=== PATIENT | male | born 2000 | race Hispanic/Latino ===

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

== ENCOUNTER 2019-02-25 11:40 | Emergency (ER) | payer BC, OTHER ==
--- NOTE | 2019-02-25 14:42 | ER ---
[facility] Name: Mike Virk Age: 18 yrs Sex: Male : 2000 Arrival Date: 02/25/2019 Time: 11:43 Bed Treatment Private MD: Diagnosis: Acute pharyngitis Presentation: 02/25 11:47 Presenting complaint: Patient states: cough, congestion since . Transition of la1 care: patient was not received from another setting of care. Onset of symptoms was February 25, 2019. Risk Assessment: Do you want to hurt yourself or someone else? Patient reports no desire to harm self or others. Initial Sepsis Screen: Does the patient meet any 2 criteria? No. Patient's initial sepsis screen is negative. Does the patient have a suspected source of infection? No. Patient's initial sepsis screen is negative. Care prior to arrival: None. 11:47 Method Of Arrival: Ambulatory la1 11:47 Acuity: ALMITA 4 la1 Historical: - Allergies: 11:47 No Known Allergies; la1 - Home Meds: 13:48 diazepam Oral PRN [Active]; Keppra 1,000 mg Oral tab every 12 hours [Active]; Vitamin rv B-6 Oral [Active]; - PMHx: 11:47 "infection around heart, 2017 in [facility]"; Intellectually disabled; Seizures; la1 - PSHx: 13:48 None; rv - Immunization history:: Adult Immunizations up to date. - Social history:: Smoking status: Patient/guardian denies using tobacco. - Ebola Screening: : No symptoms or risks identified at this time. - Family history:: not pertinent. Screenin:47 Abuse screen: Denies threats or abuse. Denies injuries from another. Nutritional rv screening: No deficits noted. Tuberculosis screening: No symptoms or risk factors identified. Fall Risk None identified. Assessment: 13:47 General: Appears in no apparent distress. Behavior is calm, cooperative. Pain: Denies rv pain. Neuro: Level of Consciousness is awake, alert, obeys commands, Oriented to person, place, time, situation. EENT: Throat is clear. Derm: No signs and/or symptoms reported regarding the dermatologic system. Vital Signs: 11:52 BP 126 / 86; Pulse 78; Resp 16; Temp 98.2; Pulse Ox 100% on R/A; la1 14:47 BP 124 / 78; Pulse 71; Resp 16; Pulse Ox 100% ; rv ED Course: 11:43 Patient arrived in ED. as 11:47 Triage completed. la1 11:47 Arm band placed on right wrist. la1 13:31 Bro Lainez MD is Attending Physician. [place] 13:32 Diogo Edwards, RN is Primary Nurse. rv 13:48 Patient has correct armband on for positive identification. Call light in reach. Side rv rails up X 1. 14:46 No provider procedures requiring assistance completed. Patient did not have IV access rv during this emergency room visit. Administered Medications: 14:46 Drug: Zithromax 500 mg Route: PO; rv 14:46 Follow up: Response: No adverse reaction; Medication administered at discharge. rv Outcome: 14:41 Discharge ordered by . [place] 14:47 Discharged to home ambulatory. rv 14:47 Condition: good 14:47 Discharge instructions given to patient, Instructed on discharge instructions, follow up and referral plans. medication usage, Demonstrated understanding of instructions, follow-up care, medications, Prescriptions given X 2. 14:47 Patient left the ED. rv Signatures: Bro Lainez MD MD cha Martinez, Amelia as Attema, Lee, RN RN la1 Diogo Edwards, YANN RN rv
--- NOTE | 2019-02-25 14:42 | EDPHYS ---
Physician Documentation [facility] Name: Mike Virk Age: 18 yrs Sex: Male : 2000 Arrival Date: 02/25/2019 Time: 11:43 Bed Treatment Private MD: ED Physician Bro Lainez HPI: 02/25 14:38 This 18 yrs old Male presents to ER via Ambulatory with complaints of Cold [facility] Symptoms. 14:38 sore throat. Severity of symptoms: At their worst the symptoms were mild in the [facility] emergency department the symptoms are unchanged. The patient has not experienced similar symptoms in the past. Historical: - Allergies: 11:47 No Known Allergies; la1 - Home Meds: 13:48 diazepam Oral PRN [Active]; Keppra 1,000 mg Oral tab every 12 hours [Active]; Vitamin rv B-6 Oral [Active]; - PMHx: 11:47 "infection around heart, 2017 in [facility]"; Intellectually disabled; Seizures; la1 - PSHx: 13:48 None; rv - Immunization history:: Adult Immunizations up to date. - Social history:: Smoking status: Patient/guardian denies using tobacco. - Ebola Screening: : No symptoms or risks identified at this time. - Family history:: not pertinent. ROS: 14:38 Constitutional: Negative for fever, chills, and weight loss, Eyes: Negative for injury, [place] pain, redness, and discharge, Neck: Negative for injury, pain, and swelling, Cardiovascular: Negative for chest pain, palpitations, and edema, Respiratory: Negative for shortness of breath, cough, wheezing, and pleuritic chest pain, Abdomen/GI: Negative for abdominal pain, nausea, vomiting, diarrhea, and constipation, Back: Negative for injury and pain, : Negative for injury, bleeding, discharge, and swelling, MS/Extremity: Negative for injury and deformity, Skin: Negative for injury, rash, and discoloration, Neuro: Negative for headache, weakness, numbness, tingling, and seizure, Psych: Negative for depression, anxiety, suicide ideation, homicidal ideation, and hallucinations, Allergy/Immunology: Negative for hives, rash, and allergies, Endocrine: Negative for neck swelling, polydipsia, polyuria, polyphagia, and marked weight changes, Hematologic/Lymphatic: Negative for swollen nodes, abnormal bleeding, and unusual bruising. 14:38 ENT: Positive for Exam: 14:38 Constitutional: This is a well developed, well nourished patient who is awake, alert, [place] and in no acute distress. Head/Face: Normocephalic, atraumatic. Eyes: Pupils equal round and reactive to light, extra-ocular motions intact. Lids and lashes normal. Conjunctiva and sclera are non-icteric and not injected. Cornea within normal limits. Periorbital areas with no swelling, redness, or edema. Neck: Trachea midline, no thyromegaly or masses palpated, and no cervical lymphadenopathy. Supple, full range of motion without nuchal rigidity, or vertebral point tenderness. No Meningismus. Chest/axilla: Normal chest wall appearance and motion. Nontender with no deformity. No lesions are appreciated. Cardiovascular: Regular rate and rhythm with a normal S1 and S2. No gallops, murmurs, or rubs. Normal PMI, no JVD. No pulse deficits. Respiratory: Lungs have equal breath sounds bilaterally, clear to auscultation and percussion. No rales, rhonchi or wheezes noted. No increased work of breathing, no retractions or nasal flaring. Abdomen/GI: Soft, non-tender, with normal bowel sounds. No distension or tympany. No guarding or rebound. No evidence of tenderness throughout. Back: No spinal tenderness. No costovertebral tenderness. Full range of motion. Skin: Warm, dry with normal turgor. Normal color with no rashes, no lesions, and no evidence of cellulitis. MS/ Extremity: Pulses equal, no cyanosis. Neurovascular intact. Full, normal range of motion. Neuro: Awake and alert, GCS 15, oriented to person, place, time, and situation. Cranial nerves II-XII grossly intact. Motor strength 5/5 in all extremities. Sensory grossly intact. Cerebellar exam normal. Normal gait. Psych: Awake, alert, with orientation to person, place and time. Behavior, mood, and affect are within normal limits. 14:38 ENT: Posterior pharynx: erythema. Vital Signs: 11:52 BP 126 / 86; Pulse 78; Resp 16; Temp 98.2; Pulse Ox 100% on R/A; la1 14:47 BP 124 / 78; Pulse 71; Resp 16; Pulse Ox 100% ; rv MDM: 13:31 Patient medically screened. [facility] 14:40 Data reviewed: vital signs, nurses notes, lab test result(s). [facility] 02/25 11:48 Order name: Strep; Complete Time: 14:32 la 02/25 12:28 Order name: Throat Culture EDMS Administered Medications: 14:46 Drug: Zithromax 500 mg Route: PO; rv 14:46 Follow up: Response: No adverse reaction; Medication administered at discharge. rv Disposition: 02/25/19 14:41 Discharged to Home. Impression: Acute pharyngitis. - Condition is Stable. - Discharge Instructions: Pharyngitis, Pharyngitis, [id number], Sore Throat, Iqrh-[id number]. - Prescriptions for Rita- D 12 Hour 60-120 mg Oral Tablet Sustained Release 12 hr - take 1 tablet by ORAL route every 12 hours As needed; 20 tablet. Zithromax Z- Shon 250 mg Oral Tablet - take 1 tablet by ORAL route as directed for 5 days Day 1 - take two (2) tablets one time. Day 2, 3, 4 , 5 take one (1) tablet once daily.; 6 tablet. - Medication Reconciliation Form, Thank You Letter, Antibiotic Education, Prescription Opioid Use form. - Follow up: Private Physician; When: 2 - 3 days; Reason: Recheck today's complaints, Continuance of care, Re-evaluation by your physician. - Problem is new. - Symptoms have improved. Signatures: Dispatcher [employer] EDWI Bro Lainez MD MD cha Attema, Lee RN RN la1 Diogo Edwards RN RN rv Corrections: (The following items were deleted from the chart) 14:47 14:41 02/25/2019 14:41 Discharged to Home. Impression: Acute pharyngitis. Condition is rv Stable. Forms are Medication Reconciliation Form, Thank You Letter, Antibiotic Education, Prescription Opioid Use. Follow up: Private Physician; When: 2 - 3 days; Reason: Recheck today's complaints, Continuance of care, Re-evaluation by your physician. Problem is new. Symptoms have improved. [place]
[2019-02-25] MEDS ORDERED: AZITHROMYCIN 250 MG TAB ONE (14:45)
[2019-02-25 17:44] VITALS: TEMP 98.2; O2SAT 100
[2019-02-25 18:04] VITALS: BP 124/78
== END 2019-02-25 14:47 | disposition home or self-care (01) ==
LOC: ER 11:40
DX: J02.9 Acute pharyngitis, unspecified (principal); G40.909 Epilepsy, unspecified, not intractable, without status epilepticus
CPT/HCPCS: 87070; 87081; 99283

== ENCOUNTER 2019-09-13 11:49 | Emergency (ER) | payer BC, OTHER ==
--- OUTSIDE RECORDS SUMMARY | 2019-09-13 11:54 | XMS REPORT | Continuity of Care Document ---
:2000 Author Organization [facility] t Address [address] [place] [address] Care Team Providers Name Role Phone Denisa FRIAS, Flako Attending Clinician Problems This patient has no known problems. Allergies, Adverse Reactions, Alerts This patient has no known allergies or adverse reactions. Medications This patient has no known medications. Procedures This patient has no known procedures. Encounters Start End Encounter Admission Attending Care Care Encounter Source Date/Time Date/Time Type Type Clinicians Facility Department ID 2019-08-09 2019-08-09 [facility] KIMANI Crawley [id number] 08:08:51 08:38:51 ne Visit Mj Marquez [id number] Flako Ortiz [id number] Pasha [id number] nal 044 Building Results This patient has no known results.
--- OUTSIDE RECORDS SUMMARY | 2019-09-13 11:54 | XMS REPORT | Summary of Care ---
:2000 Author Organization [facility] Address [address] [place] [id number] Care Team Providers Name Role Phone Flako Crawley MD Primary Care Provider Reason for Referral (Routine) Status Reason Specialty Diagnoses / Referred By Referred To Procedures Contact Contact Pending Review Patient is Diagnoses Seizure Mj Crawley, Established with Procedures CONSULT/REFERRAL NEUROLOGY MD Sang Arriola a Specific [facility] [address] Provider [place] [phone] [place], Phone: [place] [phone] Phone: Reason for Visit Reason Comments Establish Care Seizures Encounter Details Date Type Department Care Team Description 08/09/[address] [facility] Mj Crawley Seizure (Primary Pediatric and Adult MD Flako Dx) Primary Care- [facility] [address] [place] [address] [place] [address] , [address] [place], [place] [phone] (Fax) [phone] Allergies No Known Allergiesdocumented as of this encounter (statuses as of 08/09/2019) Medications Medication Sig Dispensed Refills Start Date End Date Status levETIRAcetam 1,000 mg Take 1,000 mg by 0 07/11/2019 Active tablet mouth 2 (two) times daily. multivit,thx,calcium,iro Take by mouth. 0 Active n,mins (MULTIVITAMIN AND MINERAL ORAL) documented as of this encounter (statuses as of 08/09/2019) Active Problems Problem Noted Date Seizure 08/09/2019 Intellectual disability 08/09/2019 documented as of this encounter (statuses as of 08/09/2019) Social History Tobacco Use Types Packs/Day Years Used Date Never Smoker Smokeless Tobacco: Never Used Alcohol Use Drinks/Week oz/Week Comments Never Alcohol Habits Answer Date Recorded How often do you have a drink containing alcohol? Never 08/09/2019 How many drinks containing alcohol do you have on a typical Not asked day when you are drinking? How often do you have six or more drinks on one occasion? No t asked Sex Assigned at Date Recorded Not on file Job Start Date Occupation Industry Not on file Not on file Not on file Travel History Travel Start Travel End No recent travel history available. documented as of this encounter Last Filed Vital Signs Not on filedocumented in this encounter Progress Notes Mj Crawley MD - 08/09/2019 4:15 PM CDT TELEHEALTH NOTE Verbal consent obtained from Patient: Mike Virk and Care Provider: his mother for telehealth services provided below. Communication with patient was conducted via Telephone due to patient unable to obtain video call option. Location of Patient: Home Location of Provider: Office Date of Service: 08/09/2019 Chief Complaint: establish care and referrals HPI: Patient is currently controlled on his Keppra; He will need a referral to follow up with Dr Dumont. His seizures started 2016. Patient also suffers from an intellectual disability. Lives with his mother and siblings however he is relatively independent and makes good decisions for himself. Seizures Seizure activity on arrival: no Seizure type: Grand mal Initial focality: None Postictal symptoms: confusion and somnolence Return to baseline: yes Severity: Severe Timing: Intermittent Past Medical History: Diagnosis Date Intellectual disability Seizures 2016 No Known Allergies Family History Problem Relation Age of Onset Cancer Maternal Grandmother Diabetes Maternal Grandfather MEDICATIONS: Current Outpatient Medications Medication Sig Dispense Refill multivit,thx,calcium,iron,mins (MULTIVITAMIN AND MINERAL ORAL) Take by mouth. levETIRAcetam 1,000 mg tablet Take 1,000 mg by mouth 2 (two) times daily. No current facility-administered medications for this visit. ROS Review of Systems Neurological: Positive for seizures. 5th toe has a dystrophic nail which is overgrowing TELEHEALTH EXAM Patient is alert and communicative on the phone with no distress noted. ASSESSMENT/ PLAN 1. Seizure CONSULT/REFERRAL NEUROLOGY once the Covid risks abates will need a referral to podiatry Follow up 3 months to meet F2F After visit summary (AVS ) documentation will be available through [employer] for this encounter. A total of 25 minutes was spent on the Telephone due to patient unable to obtain video call option with the patient. Mj Crawley MD documented in this encounter Plan of Treatment Health Maintenance Due Date Last Done Comments VARICELLA VACCINES (1 of 2 - 2-dose 07/07/2000 childhood series) MENINGOCOCCAL B VACCINES (1 of 2 - 07/07/2009 Risk Bexsero 2-dose series) DTaP,Tdap,and Td Vaccines (1 - 07/07/2010 Tdap) HPV VACCINES (1 - Male 2-dose 07/07/2010 series) WELL CARE VISIT: 12-21 YEARS 2011 (yearly) INFLUENZA VACCINE (Season Ended) 2019 MENINGOCOCCAL VACCINE Aged Out No longer eligible based on patient's age to complete this topic PNEUMOCOCCAL 0-64 YEARS COMBINED Aged Out No longer eligible based on SERIES patient's age to complete this topic documented as of this encounter Results Not on filedocumented in this encounter Visit Diagnoses Diagnosis Seizure - Primary Other convulsions documented in this encounter Insurance Payer Benefit Plan / Subscriber ID Effective Phone Address T ype Group Dates [employer] 2019-Pres [address] [place] [id number] [place] [address] documented as of this encounter
--- NOTE | 2019-09-13 12:54 | RAD REPORT ---
EXAM DESCRIPTION: RAD - Knee Left 3 View - 09/13/2019 12:43 pm CLINICAL HISTORY: PAIN, slip and fall COMPARISON: No comparisons FINDINGS: No fracture, dislocation or periosteal reaction.No joint effusion seen. No joint space milka rowing. No soft tissue abnormality. IMPRESSION: Negative left knee. Clinical concerns for internal derangement or occult bony injury could be further assessed with MR im aging.
[2019-09-13] MEDS ORDERED: TETANUS & DIPHTHERIA TOX,ADULT 0.5 ML VIAL ONE (13:24)
--- NOTE | 2019-09-13 13:24 | EDPHYS ---
Physician Documentation [facility] Name: Mike Virk Age: 19 yrs Sex: Male : 2000 Arrival Date: 09/13/2019 Time: 11:52 Bed 23 Private MD: ED Physician Meryl Mejias HPI: 09/12 13:34 This 19 yrs old Male presents to ER via Ambulatory with complaints of Fall kb Injury, Laceration To Knee. 13:34 Details of fall: The patient fell from an upright position, while standing. Onset: The kb symptoms/episode began/occurred just prior to arrival. Associated injuries: The patient sustained left knee, abrasion. Severity of symptoms: At their worst the symptoms were moderate, in the emergency department the symptoms are unchanged. The patient has not experienced similar symptoms in the past. The patient has not recently seen a physician. Mother reports pt was in the shower, lost his balance and fell onto left knee. Brought him in to make sure there was no injury. Abrasions noted to left knee and thigh. Historical: - Allergies: 12:12 No Known Allergies; ca1 - Home Meds: 12:12 Keppra 1,000 mg Oral tab every 12 hours [Active]; Vitamin B-6 Oral [Active]; diazepam ca1 Oral PRN [Active]; - PMHx: 12:12 "infection around heart, 2017 in [facility]"; Intellectually disabled; Seizures; ca1 - PSHx: 12:12 None; ca1 - Immunization history:: Adult Immunizations up to date, Last tetanus immunization: unknown. - Social history:: Smoking status: Patient denies any tobacco usage or history of. ROS: 13:33 Constitutional: Negative for fever, chills, and weight loss, Cardiovascular: Negative kb for chest pain, palpitations, and edema, Respiratory: Negative for shortness of breath, cough, wheezing, and pleuritic chest pain, Abdomen/GI: Negative for abdominal pain, nausea, vomiting, diarrhea, and constipation, Back: Negative for injury and pain, MS/Extremity: Negative for injury and deformity, Neuro: Negative for headache, weakness, numbness, tingling, and seizure. 13:33 Skin: Positive for abrasion(s), of the left knee. Exam: 13:34 Constitutional: This is a well developed, well nourished patient who is awake, alert, kb and in no acute distress. Head/Face: Normocephalic, atraumatic. Chest/axilla: Normal chest wall appearance and motion. Nontender with no deformity. No lesions are appreciated. Cardiovascular: Regular rate and rhythm with a normal S1 and S2. No gallops, murmurs, or rubs. Normal PMI, no JVD. No pulse deficits. Respiratory: Lungs have equal breath sounds bilaterally, clear to auscultation and percussion. No rales, rhonchi or wheezes noted. No increased work of breathing, no retractions or nasal flaring. Abdomen/GI: Soft, non-tender, with normal bowel sounds. No distension or tympany. No guarding or rebound. No evidence of tenderness throughout. Skin: Warm, dry with normal turgor. Normal color with no rashes, no lesions, and no evidence of cellulitis. Neuro: Awake and alert, GCS 15, oriented to person, place, time, and situation. Cranial nerves II-XII grossly intact. Motor strength 5/5 in all extremities. Sensory grossly intact. Cerebellar exam normal. Normal gait. 13:34 Musculoskeletal/extremity: Extremities: grossly normal except: noted in the left knee: abrasion, ROM: intact in all extremities, Circulation is intact in all extremities. Sensation intact. Vital Signs: 12:09 BP 120 / 74; Pulse 92; Resp 16 A; Temp 97.4; Pulse Ox 100% on R/A; Weight 131.54 kg ca1 (R); Height 5 ft. 11 in. (180.34 cm) (R); Pain 5/10; 12:09 Body Mass Index 40.45 (131.54 kg, 180.34 cm) ca1 MDM: 13:04 Patient medically screened. kb 13:22 Data reviewed: vital signs, nurses notes. Data interpreted: Pulse oximetry: on room air kb is 100 %. Interpretation: normal. Counseling: I had a detailed discussion with the patient and/or guardian regarding: the historical points, exam findings, and any diagnostic results supporting the discharge/admit diagnosis, radiology results, the need for outpatient follow up, a family practitioner, to return to the emergency department if symptoms worsen or persist or if there are any questions or concerns that arise at home. 09/12 12:12 Order name: XRAY Knee LEFT 3 view; Complete Time: 12:58 ca1 09/12 13:22 Order name: Wound Care; Complete Time: 13:26 kb 09/12 13:22 Order name: Wound dressing; Complete Time: 13:26 kb Administered Medications: 13:25 Drug: Tetanus-Diphtheria Toxoid Adult 0.5 ml {Teacher Associate: [employer]. Exp: 05/17/2021. Lot #: [id number]. } Route: IM; Site: right deltoid; Disposition: 18:48 Co-signature as Attending Physician, Meryl Mejias MD. ma2 Disposition: 09/13/19 13:23 Discharged to Home. Impression: Fall on same level from slipping, tripping and stumbling, Abrasion of knee. - Condition is Stable. - Discharge Instructions: Abrasion, [id number], Fall Prevention in the Home, [id number]. - Medication Reconciliation Form, Thank You Letter, Antibiotic Education, Prescription Opioid Use form. - Follow up: Emergency Department; When: As needed; Reason: Worsening of condition. Follow up: Private Physician; When: 2 - 3 days; Reason: Recheck today's complaints, Continuance of care, Re-evaluation by your physician. Signatures: Dispatcher [employer] Renita Serrano, MEDICAL INSURANCE CODER-C MEDICAL INSURANCE CODER-Daniela Castorena, YANN RN Meryl Jaquez MD MD ma2 Britany Bryson RN RN ca1 Corrections: (The following items were deleted from the chart) 13:35 13:23 09/13/2019 13:23 Discharged to Home. Impression: Fall on same level from slipping, tripping and stumbling; Abrasion of knee. Condition is Stable. Forms are Medication Reconciliation Form, Thank You Letter, Antibiotic Education, Prescription Opioid Use. Follow up: Emergency Department; When: As needed; Reason: Worsening of condition. Follow up: Private Physician; When: 2 - 3 days; Reason: Recheck today's complaints, Continuance of care, Re-evaluation by your physician. kb
--- NOTE | 2019-09-13 13:24 | ER ---
Nurse's Notes [facility] Name: Mike Virk Age: 19 yrs Sex: Male : 2000 Arrival Date: 09/13/2019 Time: 11:52 Bed 23 Private MD: Diagnosis: Fall on same level from slipping, tripping and stumbling;Abrasion of knee Presentation: 09/12 12:09 Chief complaint: Parent and/or Guardian states: Slipped, fell, and landed on L knee on ca1 the bathtub. Abrasions noted on L knee. Coronavirus screen: Proceed with normal triage. Patient denies a cough. Patient denies shortness of breath or difficulty breathing. Patient denies measured and/or subjective temperature greater than 100.4F prior to today's visit. Patient denies travel on a cruise ship or to a country the [facility] currently lists as an affected area. Patient denies contact with known and/or suspected case of COVID-19. Ebola Screen: Patient negative for fever greater than or equal to 101.5 degrees Fahrenheit, and additional compatible Ebola Virus Disease symptoms Patient denies exposure to infectious person. Patient denies travel to an Ebola-affected area in the 21 days before illness onset. No symptoms or risks identified at this time. Initial Sepsis Screen: Does the patient meet any 2 criteria? No. Patient's initial sepsis screen is negative. Does the patient have a suspected source of infection? No. Patient's initial sepsis screen is negative. Risk Assessment: Do you want to hurt yourself or someone else? Patient reports no desire to harm self or others. Onset of symptoms was September 13, 2019. 12:09 Method Of Arrival: Ambulatory ca1 12:09 Acuity: ALMITA 4 ca1 Historical: - Allergies: 12:12 No Known Allergies; ca1 - Home Meds: 12:12 Keppra 1,000 mg Oral tab every 12 hours [Active]; Vitamin B-6 Oral [Active]; diazepam ca1 Oral PRN [Active]; - PMHx: 12:12 "infection around heart, 2017 in [facility]"; Intellectually disabled; Seizures; ca1 - PSHx: 12:12 None; ca1 - Immunization history:: Adult Immunizations up to date, Last tetanus immunization: unknown. - Social history:: Smoking status: Patient denies any tobacco usage or history of. Screenin:10 Abuse screen: Denies threats or abuse. Denies injuries from another. Nutritional iw screening: No deficits noted. Tuberculosis screening: No symptoms or risk factors identified. Fall Risk None identified. Assessment: 13:09 General: Appears in no apparent distress. Behavior is calm, cooperative. Pain: iw Complains of pain in left knee. Neuro: Level of Consciousness is awake, alert, obeys commands, Moves all extremities. Full function. Cardiovascular: Patient's skin is warm and dry. Respiratory: Respiratory effort is even, unlabored, Respiratory pattern is regular. Derm: Wound noted Other: abrasion noted to left knee. Musculoskeletal: Range of motion: intact in all extremities. Vital Signs: 12:09 BP 120 / 74; Pulse 92; Resp 16 A; Temp 97.4; Pulse Ox 100% on R/A; Weight 131.54 kg ca1 (R); Height 5 ft. 11 in. (180.34 cm) (R); Pain 5/10; 12:09 Body Mass Index 40.45 (131.54 kg, 180.34 cm) ca1 ED Course: 11:52 Patient arrived in ED. ag5 12:11 Triage completed. ca1 12:12 Arm band placed on right wrist. ca1 12:42 Renita Chambers [facility]-C [facility]. kb 12:42 Meryl Mejias MD is Attending Physician. kb 12:44 XRAY Knee LEFT 3 view In Process Unspecified. EDMS 13:08 Daniela Osborne, RN is Primary Nurse. iw 13:10 No provider procedures requiring assistance completed. Patient did not have IV access iw during this emergency room visit. 13:35 Patient has correct armband on for positive identification. iw Administered Medications: 13:25 Drug: Tetanus-Diphtheria Toxoid Adult 0.5 ml {French Comber: [employer]. Exp: iw 05/17/2021. Lot #: [id number]. } Route: IM; Site: right deltoid; Outcome: 13:23 Discharge ordered by . kb 13:34 Discharged to home ambulatory, with family. iw 13:34 Condition: good 13:34 Discharge instructions given to patient, family, Instructed on discharge instructions, follow up and referral plans. wound care, Demonstrated understanding of instructions, follow-up care, wound care. 13:35 Patient left the ED. iw Signatures: Dispatcher [employer] EDRenita Martinez, REDRAWER-C REDRAWER-CkDaniela Arango RN RN iw Britany Bryson RN RN ca1 Julia [place] ag5 Corrections: (The following items were deleted from the chart) 12:12 12:09 Pulse 92bpm; Resp 16bpm; Assisted; Pulse Ox 100% RA; Temp 97.4F; 131.54 kg ca1 Reported; Height 5 ft. 11 in. Reported; BMI: 40.4; Pain 5/10; ca1
[2019-09-13 13:43] VITALS: BP 120/74; TEMP 97.4; O2SAT 100
== END 2019-09-13 13:35 | disposition home or self-care (01) ==
LOC: ER 11:49
DX: S80.212A Abrasion, left knee, initial encounter (principal); W18.2XXA Fall in (into) shower or empty bathtub, initial encounter; Y93.9 Activity, unspecified
CPT/HCPCS: 90471; 90714; 99283

== ENCOUNTER 2020-08-06 21:09 | Emergency (ER) | payer BC, OTHER ==
--- OUTSIDE RECORDS SUMMARY | 2020-08-06 21:12 | XMS REPORT | Continuity of Care Document ---
:2000 Author Organization [facility] t Address [address] [place] [address] Care Team Providers Name Role Phone Denisa FRIAS, Flako Attending Clinician Problems This patient has no known problems. Allergies, Adverse Reactions, Alerts This patient has no known allergies or adverse reactions. Medications This patient has no known medications. Procedures This patient has no known procedures. Encounters Start End Encounter Admission Attending Care Care Encounter Source Date/Time Date/Time Type Type Clinicians Facility Department ID 2019-11-04 2019-11-[address] [facility] [id number] 00:00:00 00:00:00 [facility] [id number] [place] [id number] Professio [phone] nal [address] 2019-08-09 2019-08-[address] [facility] [id number] 08:08:51 08:38:51 ne Visit Mj Hood [id number] Flako [place] [id number] Professio [phone] nal 044 Building Results This patient has no known results.
[2020-08-06 22:36] LABS: Absolute Lymphocytes (CBC) 3.2 K/uL (0.7-4.9); Basophils % 0.4 % (0-1.3); Hematocrit 43.8 % (39.6-49.0); Lymphocytes % 24.3 % (15.3-44.8); MPV 9.9 fL (7.6-11.3); RBC Red Blood Cell Count 5.51 M/uL (4.33-5.43)
[2020-08-06 22:37] LABS: Protime INR 1.11
[2020-08-06 22:51] LABS: ALT/SGPT 47 U/L (12-78); AST/SGOT 31 U/L (15-37); Albumin 4.3 g/dL (3.4-5.0); Alkaline Phosphatase 85 U/L (45-117); BUN Blood Urea Nitrogen 15 mg/dL (7-18); Bicarbonate 30 mmol/L (21-32); Bilirubin Direct < 0.1 mg/dL (0-0.2); Bilirubin Total 0.3 mg/dL (0.2-1.0); Glucose Level 94 mg/dL (74-106); Magnesium 2.2 mg/dL (1.8-2.4); Potassium 3.8 mmol/L (3.5-5.1); Protein, Total 8.2 g/dL (6.4-8.2); Sodium Level 139 mmol/L (136-145); Troponin (Emerg Dept Use Only) < 0.02 ng/mL (0.0-0.045)
[2020-08-06 22:53] LABS: NT PRO-BNP < 5 pg/mL (<125)
[2020-08-06 23:22] LABS: Urine Blood Negative (Negative); Urine Glucose Negative (Negative); Urine Protein Negative (Negative); Urine Specific Gravity >=1.030 (1.005-1.030); Urine pH 6.5 (5.0-7.0)
[2020-08-06] MEDS ORDERED: FAMOTIDINE 20 MG/2 ML VIAL IV ONE (23:28)
[2020-08-06] MEDS ORDERED: KETOROLAC 30 MG/ML INJ ONE (23:28)
[2020-08-06 23:47] LABS: Barbiturates NEGATIVE (NEGATIVE); Benzodiazepines NEGATIVE (NEGATIVE); Cocaine NEGATIVE (NEGATIVE); METHAMPHETAM NEGATIVE (NEGATIVE); Methadone NEGATIVE (NEGATIVE); Opiates NEGATIVE (NEGATIVE); Phencyclidine NEGATIVE (NEGATIVE); THC Cannibis NEGATIVE (NEGATIVE)
--- NOTE | 2020-08-07 00:36 | EDPHYS ---
Physician Documentation [facility] Name: Mike Virk Age: 20 yrs Sex: Male : 2000 Arrival Date: 08/06/2020 Time: 21:12 Bed 14 Private MD: ED Physician Fazal Weller HPI: 08/06 22:30 This 20 yrs old Male presents to ER via Ambulatory with complaints of Chest cp Pain, Nausea. 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 Flu vaccine is not up to date. - Social history:: Smoking status: Patient denies any tobacco usage or history of. ROS: 22:35 Constitutional: Negative for body aches, chills, fever, poor PO intake. cp 22:35 Eyes: Negative for injury, pain, redness, and discharge. cp 22:35 ENT: Negative for ear pain, sore throat, difficulty swallowing, difficulty handling secretions. 22:35 Cardiovascular: Positive for chest pain, Negative for edema, palpitations. 22:35 Respiratory: Positive for cough, Negative for shortness of breath, wheezing. 22:35 Abdomen/GI: Positive for nausea and vomiting, Negative for abdominal pain, diarrhea, constipation, anorexia, black/tarry stool, rectal bleeding. 22:35 Back: Negative for radiated pain. 22:35 : Negative for urinary symptoms, testicular pain 22:35 Neuro: Negative for altered mental status, headache, weakness. 22:35 All other systems are negative. Exam: 21:30 ECG was reviewed by the Attending Physician. cp 22:40 Constitutional: The patient appears in no acute distress, alert, awake, cp non-diaphoretic, non-toxic, well developed, well nourished. 22:40 Head/Face: Normocephalic, atraumatic. cp 22:40 Eyes: Periorbital structures: appear normal, Conjunctiva: normal, no exudate, no injection, Sclera: no appreciated abnormality, Lids and lashes: appear normal, bilaterally. 22:40 ENT: External ear(s): are unremarkable, Nose: is normal, Mouth: Lips: moist, Oral mucosa: pink and intact, moist, Posterior pharynx: Airway: no evidence of obstruction, patent. 22:40 Neck: ROM/movement: is normal, is supple, without pain, no range of motions limitations. 22:40 Chest/axilla: Inspection: normal, Palpation: crepitus, is not appreciated, tenderness, that is mild, of the anterior aspect of left upper chest and mid-sternal area. 22:40 Cardiovascular: Rate: normal, Rhythm: regular, Heart sounds: murmur, not appreciated, Edema: is not appreciated, JVD: is not appreciated. 22:40 Respiratory: the patient does not display signs of respiratory distress, Respirations: normal, no use of accessory muscles, no retractions, labored breathing, is not present, Breath sounds: are clear throughout, no decreased breath sounds, no stridor, no wheezing. 22:40 Abdomen/GI: Inspection: abdomen appears normal, Bowel sounds: active, all quadrants, Palpation: soft, in all quadrants, mild abdominal tenderness, in the epigastric area, rebound tenderness, is not appreciated, voluntary guarding, is not appreciated, involuntary guarding, is not appreciated. 22:40 Back: pain, is absent, ROM is normal. Vital Signs: 21:23 BP 129 / 77; Pulse 92; Resp 16 S; Temp 98.3(O); Pulse Ox 100% on R/A; Weight 131.54 kg ca1 (R); Height 5 ft. 11 in. (180.34 cm) (R); 23:00 BP 119 / 70; Pulse 80; Resp 16; Pulse Ox 98% ; rr5 08/07 00:01 BP 115 / 70; Pulse 85; Resp 19; Pulse Ox 98% ; rr5 01:00 BP 113 / 66; Pulse 80; Resp 19; Pulse Ox 98% ; rr5 08/06 21:23 Body Mass Index 40.45 (131.54 kg, 180.34 cm) ca1 MDM: 08/06 22:01 Patient medically screened. cp 08/07 00:34 Data reviewed: vital signs, nurses notes, lab test result(s), EKG, radiologic studies, cp CT scan, plain films, and as a result, I will discharge patient. 00:34 Test interpretation: by ED physician or midlevel provider: ECG, chest xray negative for cp infiltrates. Counseling: I had a detailed discussion with the patient and/or guardian regarding: the historical points, exam findings, and any diagnostic results supporting the discharge/admit diagnosis, lab results, radiology results, to return to the emergency department if symptoms worsen or persist or if there are any questions or concerns that arise at home. 08/06 22:00 Order name: Basic Metabolic Panel rr5 08/06 22:00 Order name: CBC with Diff rr5 08/06 22:00 Order name: LFT's rr 08/06 22:00 Order name: Magnesium; Complete Time: 23:03 rr5 08/06 22:00 Order name: NT PRO-BNP; Complete Time: 23:03 rr5 08/06 22:00 Order name: PT-INR; Complete Time: 23:03 [facility] 08/06 23:04 Interpretation: Abnormal: PT 12.8. cp 08/06 22:00 Order name: Troponin (emerg Dept Use Only); Complete Time: 23:03 rr5 08/06 22:01 Order name: Basic Metabolic Panel; Complete Time: 23:03 EDFL 08/06 23:04 Interpretation: Normal except: GFR 85. cp 08/06 22:01 Order name: CBC with Automated Diff; Complete Time: 23:03 EDFL 08/06 23:04 Interpretation: Normal except: WBC 13.20; RBC 5.51; MCV 79.6; MCH 26.8; NEUT A 8.8. cp 08/06 22:01 Order name: Liver (Hepatic) Function; Complete Time: 23:03 EDFL 08/06 22:18 Order name: UDS; Complete Time: 00:13 cp 08/06 22:27 Order name: Lipase; Complete Time: 23:03 cp 08/06 23:22 Order name: Urine Dipstick-Ancillary; Complete Time: 00:13 EDFL 08/06 21:27 Order name: EKG; Complete Time: 21:28 ca1 08/06 21:27 Order name: EKG - Nurse/Tech; Complete Time: 21:27 ca1 08/06 22:00 Order name: XRAY Chest (1 view) rr5 08/06 22:00 Order name: Cardiac monitoring; Complete Time: 22:30 rr5 08/06 22:00 Order name: IV Saline Lock; Complete Time: 22:30 rr5 08/06 22:00 Order name: Labs collected and sent; Complete Time: 22:30 rr5 08/06 22:00 Order name: O2 Per Protocol; Complete Time: 22:30 rr5 08/06 22:00 Order name: O2 Sat Monitoring; Complete Time: 22:30 rr5 08/06 22:27 Order name: US Abdomen Limited cp 08/06 22:27 Order name: NPO; Complete Time: 22:30 cp 08/06 23:07 Order name: CT Abd/Pelvis - IV Contrast Only cp 08/06 23:48 Order name: SARS-COV-2 RT PCR; Complete Time: 00:13 EDMS 08/07 00:16 Order name: PO challenge; Complete Time: 00:33 cp EC/06 21:30 Rate is 89 beats/min. Rhythm is regular. WI interval is normal. QRS interval is normal. cp QT interval is normal. T waves are Inverted in lead aVR. Interpreted by me. Reviewed by me. Administered Medications: 23:10 Drug: Pepcid (famotidine) 20 mg Route: IVP; Site: right forearm; rr5 08/07 00:00 Follow up: Response: No adverse reaction rr5 08/06 23:26 Drug: TORadol - (ketorolac) 15 mg Route: IVP; Site: right forearm; rr5 08/07 00:20 Follow up: Response: No adverse reaction rr5 Disposition: 06:35 Co-signature as Attending Physician, Fazal Weller MD. [email or web address] Disposition: 08/07/20 00:35 Discharged to Home. Impression: Chest pain, unspecified, Nausea and vomiting. - Condition is Stable. - Discharge Instructions: Nonspecific Chest Pain, Nausea and Vomiting, Adult. - Prescriptions for Zofran 4 mg Oral Tablet - take 1 tablet by ORAL route every 12 hours As needed; 20 tablet. Diclofenac Sodium 75 mg Oral Tablet, Delayed Release (E.C.) - take 1 tablet by ORAL route 2 times per day; 20 tablet. - Medication Reconciliation Form, Thank You Letter, Antibiotic Education, Prescription Opioid Use form. - Follow up: Private Physician; When: 2 - 3 days; Reason: Recheck today's complaints. - Problem is new. - Symptoms have improved. Signatures: Dispatcher [employer] EDFL Bro Hackett PA PA cp Roque, Raymond RN RN rr5 Britany Bryson RN RN ca1 Fazal Weller MD MD 7 Corrections: (The following items were deleted from the chart) 08/06 23:00 22:28 CORONAVIRUS+MR.LAB.BRZ ordered. [facility] 08/07 01:02 00:35 08/07/2020 00:35 Discharged to Home. Impression: Chest pain, unspecified; Nausea rr5 and vomiting. Condition is Stable. Forms are Medication Reconciliation Form, Thank You Letter, Antibiotic Education, Prescription Opioid Use. Follow up: Private Physician; When: 2 - 3 days; Reason: Recheck today's complaints. Problem is new. Symptoms have improved. cp
--- NOTE | 2020-08-07 00:36 | ER ---
Nurse's Notes [facility] Name: Mkie Virk Age: 20 yrs Sex: Male : 2000 Arrival Date: 08/06/2020 Time: 21:12 Bed 14 Private MD: Diagnosis: Chest pain, unspecified;Nausea and vomiting Presentation: 08/06 21:23 Chief complaint: Patient states: vomited yesterday. Chest pain, nausea and dizziness ca1 this evening. Coronavirus screen: Client denies travel out of the [place] in the last 14 days. nausea, vomiting. Client presents with at least one sign or symptom that may indicate coronavirus-19. Standard/surgical mask placed on the client. Provider contacted for isolation considerations. Ebola Screen: Patient negative for fever greater than or equal to 101.5 degrees Fahrenheit, and additional compatible Ebola Virus Disease symptoms Patient denies exposure to infectious person. Patient denies travel to an Ebola-affected area in the 21 days before illness onset. No symptoms or risks identified at this time. Initial Sepsis Screen: Does the patient meet any 2 criteria? No. Patient's initial sepsis screen is negative. Does the patient have a suspected source of infection? No. Patient's initial sepsis screen is negative. Risk Assessment: Do you want to hurt yourself or someone else? Patient reports no desire to harm self or others. Onset of symptoms was August 06, 2020. 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 Flu vaccine is not up to date. - Social history:: Smoking status: Patient denies any tobacco usage or history of. Screenin:00 Abuse screen: Denies threats or abuse. Denies injuries from another. Nutritional rr5 screening: No deficits noted. Tuberculosis screening: No symptoms or risk factors identified. Fall Risk IV access (20 points). Total Yang Fall Scale indicates No Risk (0-24 pts). Assessment: 22:00 General: Appears in no apparent distress. comfortable, Behavior is calm, cooperative. rr5 22:00 Pain: Complains of pain in chest Pain radiates to abdomen Quality of pain is described rr5 as aching, Pain began gradually. Neuro: Level of Consciousness is awake, alert, obeys commands, Oriented to person, place, time. Cardiovascular: Reports chest pain, Capillary refill < 3 seconds Patient's skin is warm and dry. Respiratory: Airway is patent Respiratory effort is even, unlabored, Respiratory pattern is regular, symmetrical. GI: Abdomen is round Reports lower abdominal pain, upper abdominal pain, nausea, vomiting. : No signs and/or symptoms were reported regarding the genitourinary system. EENT: No signs and/or symptoms were reported regarding the EENT system. Derm: Skin is intact, is healthy with good turgor, Skin temperature is warm. Musculoskeletal: Capillary refill < 3 seconds. 23:00 Reassessment: Patient appears in no apparent distress at this time. Patient and/or rr5 family updated on plan of care and expected duration. Pain level reassessed. Patient is alert, oriented x 3, equal unlabored respirations, skin warm/dry/pink. awaiting for result. 08/07 00:00 Reassessment: Patient appears in no apparent distress at this time. Patient is alert, rr5 oriented x 3, equal unlabored respirations, skin warm/dry/pink. no complaints made. 01:00 Reassessment: Patient appears in no apparent distress at this time. no nausea or rr5 vomiting reported, discharge instruction given and explained without complaints made. Vital Signs: 08/06 21:23 BP 129 / 77; Pulse 92; Resp 16 S; Temp 98.3(O); Pulse Ox 100% on R/A; Weight 131.54 kg ca1 (R); Height 5 ft. 11 in. (180.34 cm) (R); 23:00 BP 119 / 70; Pulse 80; Resp 16; Pulse Ox 98% ; rr5 08/07 00:01 BP 115 / 70; Pulse 85; Resp 19; Pulse Ox 98% ; rr5 01:00 BP 113 / 66; Pulse 80; Resp 19; Pulse Ox 98% ; rr5 08/06 21:23 Body Mass Index 40.45 (131.54 kg, 180.34 cm) ca1 ED Course: 08/06 21:12 Patient arrived in ED. am4 21:24 Triage completed. ca1 21:26 Arm band placed on right wrist. ca1 21:58 Moises Jones, RN is Primary Nurse. rr5 21:59 Bro Hackett PA is PHCP. cp 21:59 Fazal Weller MD is Attending Physician. cp 22:00 Patient has correct armband on for positive identification. Bed in low position. Call rr5 light in reach. Pulse ox on. NIBP on. 22:10 Inserted saline lock: 20 gauge in right forearm, using aseptic technique. Blood rr5 collected. 22:30 XRAY Chest (1 view) Sent. rr5 22:32 XRAY Chest (1 view) In Process Unspecified. EDMS 22:57 US Abdomen Limited In Process Unspecified. EDMS 23:39 CT Abd/Pelvis - IV Contrast Only In Process Unspecified. EDMS 08/07 01:01 No provider procedures requiring assistance completed. IV discontinued, intact, rr5 bleeding controlled, No redness/swelling at site. Pressure dressing applied. Patient maintains SpO2 saturation greater than 95% on room air. Administered Medications: 08/06 23:10 Drug: Pepcid (famotidine) 20 mg Route: IVP; Site: right forearm; rr5 08/07 00:00 Follow up: Response: No adverse reaction rr5 08/06 23:26 Drug: TORadol - (ketorolac) 15 mg Route: IVP; Site: right forearm; rr5 08/07 00:20 Follow up: Response: No adverse reaction rr5 Outcome: 00:35 Discharge ordered by . cp 01:01 Discharged to home ambulatory. rr5 01:01 Condition: stable 01:01 Discharge instructions given to patient, family, Instructed on discharge instructions, follow up and referral plans. medication usage, Demonstrated understanding of instructions, follow-up care, medications, Prescriptions given X 2. 01:02 Patient left the ED. rr5 Signatures: Dispatcher [employer] EDMS Bro Hackett PA PA cp Roque, Raymond, RN RN rr5 Britany Bryson RN RN ca1 Marion Virk am
[2020-08-07 01:22] VITALS: O2SAT 98
[2020-08-07 01:23] VITALS: TEMP 98.3
[2020-08-07 01:27] VITALS: BP 113/66
--- NOTE | 2020-08-07 07:49 | EKG ---
Test Date: 2020-08-06 Test Time: 21:23:05 Finisher Polisher: DANIELLE MEASUREMENT RESULTS: Intervals: Rate: 89 CT: 172 QRSD: 76 QT: 334 QTc: 406 Donna: P: 33 CT: 172 QRS: 56 T: 36 INTERPRETIVE STATEMENTS: Normal sinus rhythm Normal ECG Compared to ECG 08/14/2017 16:35:56 Sinus tachycardia no longer present ST (T wave) deviation no longer present Electronically Signed On 08-07-20 07:48:15 CDT by Preet Singh
--- NOTE | 2020-08-07 08:07 | RAD REPORT ---
EXAM DESCRIPTION: US - Abdomen Exam Limited - 08/06/2020 10:57 pm CLINICAL HISTORY: Abdominal pain. Vomiting COMPARISON: None. FINDINGS: The gallbladder is contracted. Borderline gallbladder wall thickening. A gallstone is not seen. The biliary tree is normal caliber. IMPRESSION: Borderline gallbladder wall thickening may be secondary to the gallbladder being contrac wanda or acalculous cholecystitis. A gallstone is not seen.
--- NOTE | 2020-08-07 08:10 | RAD REPORT ---
EXAM DESCRIPTION: [place] Single View08/06/2020 10:32 pm CLINICAL HISTORY: Chest pain COMPARISON: 2017 FINDINGS: The lungs appear clear of acute infiltrate. The heart is normal size IMPRESSION: No acute abnormalities displayed
--- NOTE | 2020-08-08 09:06 | RAD REPORT ---
EXAM DESCRIPTION: CT - Abdomen Pelvis W Contrast - 08/07/2020 6:19 am CLINICAL HISTORY: NAUSEA / VOMITING. COMPARISON: None. TECHNIQUE: CT of the abdomen and pelvis was performed following intravenous administration of iodina wanda contrast. Arterial phase images through the abdomen, and portal venous phase images through the a bdomen and pelvis were obtained. Oral contrast was not administered. Axial, coronal, and sagittal sof t tissue window reconstructions were created and sent to PACS. This exam was performed according to our departmental dose-optimization program, which includes autom ated exposure control, adjustment of the mA and/or kV according to patient size and/or use of iterati ve reconstruction technique. FINDINGS: Thoracic: No significant abnormality. Hepatobiliary: Focal geographic regions of fatty deposition adjacent to the falciform ligament. No co ncerning hepatic lesion identified. The hepatic and portal veins are patent. The gallbladder is unrem arkable. No biliary ductal dilatation. Pancreas: Unremarkable. Spleen: Unremarkable. Gastrointestinal: No evidence of bowel obstruction or perienteric inflammation. The appendix is jaki l. Small amount of fecal material in the colon. Adrenals: No abnormality identified in either adrenal gland. Renal: No concerning parenchymal abnormality in either kidney. No hydronephrosis or urolithiasis. Bladder/Reproductive: Unremarkable appearance of the urinary bladder by CT technique. Vascular/Lymphatics: No lymphadenopathy identified by CT size criteria. Abdominal aorta is normal in caliber. The major visceral vessels are patent. Musculoskeletal: No concerning osseous lesion identified. Fluid / peritoneum: No significant free fluid. No free intraperitoneal air identified. IMPRESSION No acute abnormality identified in the abdomen or pelvis by CT. Electronically signed by: Nina Thompson MD 08/06/2020 11:51 PM CDT Due to temporary technical issues with the PACS/Fluency reporting system, reports are being signed by the in house radiologists without review as a courtesy to insure prompt reporting. The interpreting radiologist is fully responsible for the content of the report.
== END 2020-08-07 01:02 | disposition home or self-care (01) ==
LOC: ER 21:09
DX: R11.2 Nausea with vomiting, unspecified (principal); Z20.822 Contact with and (suspected) exposure to COVID-19; G40.909 Epilepsy, unspecified, not intractable, without status epilepticus
CPT/HCPCS: 93005; 85025; 80048; 36415; 83735; 85610; 80076; 80307 ×8; 81003; 84484; 83690; 83880; 74177; 71045; 76705; 96375; 96374; 99284; U0003; Q9967

== ENCOUNTER → 2023-06-07 | Emergency (ER) | payer OTHER ==
[~2023-06-07] MED LIST: ACETAMINOPHEN 500 MG TAB ONE; IBUPROFEN 200 MG TAB PO ONE
--- OUTSIDE RECORDS SUMMARY | 2023-06-07 22:54 | XMS REPORT | Continuity of Care Document ---
Author Name Unknown Address [address] [facility] [address] [place] [address] [facility] Address [address] [facility] [address] [place] [address] Care Team Providers Care Pants Maker Name Role Phone PCP, PATIENT DOES NOT HAVE A Primary Care Physic ariel Unavailable Srini Busby Attending Clinician [phone] SRINI PETERS Attending Clinician Unavailsherlyn Gudino MD, Brian Cisneros Attending Clinician BRIAN GUDINO Attending Clinician Anna vailable Service/[place], Surgery C Attending Clinician U Simba Aguirre MD Attending Clinician [phone] SIMBA CURIEL Attending Clinician Unavailable Doctor Unassigned, Bogue Chitto Attending Clinician U bonnie Toney RN, Alison Nye Attending Clinician [phone] Claudy Mccall MD Attending Clinician [phone] Karina Nash DO Attending Clinician [phone] Sabas Zhang DO Attending Clinician [phone] Colni Bowen MD Attending Clinician [phone] Master Bowen MD Attending Clinician [phone] BOWEN, MASTER Attending Clinician Unavailable Tc Arias MD Attending Clinician [phone] TC ARIAS Attending Clinician Karina Herndon DO Admitting Clinician [phone] KARINA NASH Admitting Clinician Unavailabl e Payers Payer Name Policy Type Policy Number Effective Date Expirati on Date Source [employer] [id number] 2022 00:00:00 [employer] [id number] 2022 00:00:00 Problems Condition Name Condition Details Condition Category Status Onset Date Resolution Date Last Treatment Date Treating Clinician Comments Source 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 Active 10-07 00:00: 00 [facility] Trauma Trauma Disease Active 09-28 00:00: 00 [facility] Obesity (BMI 30-39.9) Obesity (BMI 30-39.9) Disease Active 09-28 00:00: 00 [facility] Seizure Seizure Disease Active 08-08 00:00: 00 [facility] Intellectu al disability Intellectu al disability Disease Active 08-08 00:00: 00 [facility] Allergies, Adverse Reactions, Alerts Allergy Name Allergy Type Status Severity Reaction(s) Onset Date Inactive Date Treating Clinician Comments Source NO KNOWN ALLERGIE S Drug Class Active [facility] Social History Social Habit Start Date Stop Date Quantity Comments Source History SDOH Social Connections Get Together [facility] History SDOH Social Connections Zoroastrianism [facility] History SDOH Social Connections Membership [facility] History SDOH Social Connections Meetings [facility] History SDOH Alcohol Std Drinks [facility] History SDOH Alcohol Binge [facility] Gender identity [facility] SD[facility] Alcohol Comment [place] [facility] Alcohol intake 2022-11-28 00:00:00 2022-11-28 00:00:00 Lifetime non-drinker (finding) [facility] History of Social function 2022-10-18 00:00:00 2022-10-18 00:00:00 [facility] Tobacco use and exposure 2022-10-18 00:00:00 2022-10-18 00:00:00 Smokeless tobacco non-user [facility] History SDOH Alcohol Frequency 2022-09-28 00:00:00 2022-09-28 00:00:00 1 [facility] History SDOH Social Connections Phone 2022-09-28 00:00:00 2022-09-28 00:00:00 5 [facility] History SDOH Social Connections Living 2022-09-28 00:00:00 2022-09-28 00:00:00 7 [facility] History SDOH Financial 2022-09-28 00:00:00 2022-09-28 00:00:00 5 [facility] History SDOH Food Worry 2022-09-28 00:00:00 2022-09-28 00:00:00 1 [facility] History SDOH Food Scarcity 2022-09-28 00:00:00 2022-09-28 00:00:00 1 [facility] History SDOH Transport Med 2022-09-28 00:00:00 2022-09-28 00:00:00 2 [facility] History SDOH Transport Non-Med 2022-09-28 00:00:00 2022-09-28 00:00:00 2 [facility] History SDOH Housing Unable to Pay 2022-09-28 00:00:00 2022-09-28 00:00:00 2 [facility] History SDOH Housing Places Lived 2022-09-28 00:00:00 2022-09-28 00:00:00 1 [facility] History SDOH Housing Homeless Last Year 2022-09-28 00:00:00 2022-09-28 00:00:00 2 [facility] Sex Assigned At 2000 00:00:00 2000 00:00:00 [facility] Smoking Status Start Date Stop Date Source Never smoked tobacco [facility] Medications Ordered Medication Name Filled Medication Name Start Date Stop Date Current Medication? Ordering Clinician Indication Dosage Frequency Signature (SIG) Comments Components Source tamsulosin 0.4 mg 24 hr capsule 10-10 00:00: 00 10-18 04:59 :00 No [id number] .4mg Take 1 capsule by mouth in the morning for 7 days. [facility] tamsulosin 0.4 mg 24 hr capsule 10-10 00:00: 00 10-18 04:59 :00 No [id number] .4mg Take 1 capsule by mouth in the morning for 7 days. [facility] levETIRAcet am (KEPPRA) tablet 1,000 mg 10-09 02:00: 00 Yes 1000mg 1,000 mg, Oral, BID, First dose (after last modificati on) on 10/08/22 at 2100, Until Discontinu ed, Routine [facility] acetaminoph en 325 mg tablet 10-09 00:00: 00 10-09 04:59 :00 No [id number] 650mg Take 2 tablets by mouth every 8 (eight) hours. [facility] acetaminoph en 325 mg tablet 10-09 00:00: 00 10-09 04:59 :00 No [id number] 650mg Take 2 tablets by mouth every 8 (eight) hours. [facility] acetaminoph en 325 mg tablet 10-09 00:00: 00 10-09 04:59 :00 No [id number] 650mg Take 2 tablets by mouth every 8 (eight) hours. [facility] acetaminoph en 325 mg tablet 10-09 00:00: 00 10-09 04:59 :00 No [id number] 650mg Take 2 tablets by mouth every 8 (eight) hours. [facility] acetaminoph en 325 mg tablet 10-09 00:00: 00 10-09 04:59 :00 No [id number] 650mg Take 2 tablets by mouth every 8 (eight) hours. [facility] acetaminoph en 325 mg tablet 10-09 00:00: 00 10-09 04:59 :00 No [id number] 650mg Take 2 tablets by mouth every 8 (eight) hours. [facility] acetaminoph en 325 mg tablet 10-09 00:00: 00 10-09 04:59 :00 No [id number] 650mg Take 2 tablets by mouth every 8 (eight) hours. [facility] acetaminoph en 325 mg tablet 10-09 00:00: 00 10-09 04:59 :00 No [id number] 650mg Take 2 tablets by mouth every 8 (eight) hours. [facility] acetaminoph en 325 mg tablet 10-09 00:00: 00 10-09 04:59 :00 No [id number] 650mg Take 2 tablets by mouth every 8 (eight) hours. [facility] acetaminoph en 325 mg tablet 10-09 00:00: 00 10-09 04:59 :00 No [id number] 650mg Take 2 tablets by mouth every 8 (eight) hours. [facility] acetaminoph en 325 mg tablet 10-09 00:00: 00 10-09 04:59 :00 No [id number] 650mg Take 2 tablets by mouth every 8 (eight) hours. [facility] acetaminoph en 325 mg tablet 10-09 00:00: 00 10-09 04:59 :00 No [id number] 650mg Take 2 tablets by mouth every 8 (eight) hours. [facility] acetaminoph en 325 mg tablet 10-09 00:00: 00 10-09 04:59 :00 No [id number] 650mg Take 2 tablets by mouth every 8 (eight) hours. [facility] acetaminoph en 325 mg tablet 10-09 00:00: 00 10-09 04:59 :00 No [id number] 650mg Take 2 tablets by mouth every 8 (eight) hours. [facility] acetaminoph en 325 mg tablet 10-09 00:00: 00 10-09 04:59 :00 No [id number] 650mg Take 2 tablets by mouth every 8 (eight) hours. [facility] acetaminoph en 325 mg tablet 10-09 00:00: 00 10-09 04:59 :00 No [id number] 650mg Take 2 tablets by mouth every 8 (eight) hours. [facility] acetaminoph en 325 mg tablet 10-09 00:00: 00 10-09 04:59 :00 No [id number] 650mg Take 2 tablets by mouth every 8 (eight) hours. [facility] acetaminoph en 325 mg tablet 10-09 00:00: 00 10-09 04:59 :00 No [id number] 650mg Take 2 tablets by mouth every 8 (eight) hours. [facility] celecoxib 100 mg capsule 10-09 00:00: 00 10-25 04:59 :00 No [id number] 100mg Take 1 capsule by mouth in the morning and 1 capsule in the evening. Take with meals. Do all this for 15 days. [facility] celecoxib 100 mg capsule 10-09 00:00: 00 10-25 04:59 :00 No [id number] 100mg Take 1 capsule by mouth in the morning and 1 capsule in the evening. Take with meals. Do all this for 15 days. [facility] celecoxib 100 mg capsule 10-09 00:00: 00 10-25 04:59 :00 No [id number] 100mg Take 1 capsule by mouth in the morning and 1 capsule in the evening. Take with meals. Do all this for 15 days. [facility] celecoxib 100 mg capsule 10-09 00:00: 00 10-25 04:59 :00 No [id number] 100mg Take 1 capsule by mouth in the morning and 1 capsule in the evening. Take with meals. Do all this for 15 days. [facility] celecoxib 100 mg capsule 10-09 00:00: 00 10-25 04:59 :00 No [id number] 100mg Take 1 capsule by mouth in the morning and 1 capsule in the evening. Take with meals. Do all this for 15 days. [facility] celecoxib 100 mg capsule 10-09 00:00: 00 10-25 04:59 :00 No [id number] 100mg Take 1 capsule by mouth in the morning and 1 capsule in the evening. Take with meals. Do all this for 15 days. [facility] HYDROcodone -acetaminop hen 5-325 mg tablet 10-09 00:00: 00 10-17 04:59 :00 No [id number] 1{tbl} Take 1 tablet by mouth every 6 (six) hours as needed for Pain (scale 4-6) for up to 7 days. Indication s: acute pain [facility] methocarbam oL 500 mg tablet 10-09 00:00: 00 10-17 04:59 :00 No [id number] 500mg Take 1 tablet by mouth 4 (four) times daily for 7 days. [facility] HYDROcodone -acetaminop hen 5-325 mg tablet 10-09 00:00: 00 10-17 04:59 :00 No [id number] 1{tbl} Take 1 tablet by mouth every 6 (six) hours as needed for Pain (scale 4-6) for up to 7 days. Indication s: acute pain [facility] methocarbam oL 500 mg tablet 10-09 00:00: 00 10-17 04:59 :00 No [id number] 500mg Take 1 tablet by mouth 4 (four) times daily for 7 days. [facility] methocarbam oL (ROBAXIN) tablet 500 mg 10-07 17:00: 00 Yes 500mg 500 mg, Oral, QID, First dose on Mon10/07/22 at 1200, Until Discontinu ed, Routine [facility] celecoxib (CELEBREX) capsule 100 mg 10-07 14:30: 00 Yes 100mg 100 mg, Oral, BID MEALS, First dose on Mon10/07/22 at 0930, Until Discontinu ed, Routine [facility] acetaminoph en (TYLENOL) tablet 650 mg 10-07 14:30: 00 Yes 650mg 650 mg, Oral, Q8H, First dose on Mon10/07/22 at 0930, Until Discontinu ed, Routine [facility] D5W 0.45% NaCl (1/2NS) 1 L + KCL 20 mEq 10-07 14:30: 00 10-08 15:48 :17 No IV Infusion, at 42 mL/hr, CONTINUOUS , Starting on Mon10/07/22 at 0930, Until Mon10/08/22 at 1048, Routine [facility] HYDROcodone -acetaminop hen (NORCO 5) 5-325 mg tablet 1 tablet 10-07 14:15: 22 Yes 1{tbl} 1 tablet, Oral, Q6HPRN, Starting on Mon10/07/22 at 0915, Until Discontinu ed, Routine, Pain (scale 4-6) [facility] iopamidol (ISOVUE 370-500 mL) injection 100 mL 10-06 02:00: 00 10-06 01:10 :00 No [id number] 100mL 100 mL, Intravenou s, ONCE, 1 dose, On Mon10/05/22 at 2100, Routine [facility] acetaminoph en ADULT (OFIRMEV) injection 1,000 mg 10-05 19:00: 00 10-06 11:05 :00 No 1000mg 1,000 mg, IV Infusion, at 400 mL/hr Administer over 15 Minutes, Q8H, 3 doses, First dose (after last reorder) on Mon10/05/22 at 1400, Last dose on Mon10/06/22 at 0600, Routine
Indicatio n: Perioperat jackson Patient [facility] D5W 0.45% NaCl (1/2NS) 1 L + KCL 20 mEq 10-05 16:15: 00 10-07 14:15 :45 No IV Infusion, at 100 mL/hr, CONTINUOUS , Starting on Mon10/05/22 at 1115, Until Mon10/07/22 at 0915, Routine [facility] piperacilli n-tazobacta m (ZOSYN) 3.375 g in NaCl 0.9% (NS) 100 mL MINI-BAG 10-04 16:00: 00 10-07 13:16 :01 No 3.375g 3.375 g, IV Piggyback, Q8H ABX, 12 doses, First dose (after last modificati on) on Mon10/04/22 at 1100, Last dose on Mon10/08/22 at 0300, Administer over 4 Hours, 100 mL
Reas on for Anti-Infec tive: Documented Infection< br>Documen wanda Infection Site: Abdominal< br>Duratio n of Therapy: 7 days [facility] tamsulosin (FLOMAX) capsule 0.4 mg 10-04 14:00: 00 Yes .4mg 0.4 mg, Oral, DAILY, First dose on Mon10/04/22 at 0900, Until Discontinu ed, Routine [facility] lactated ringers IV infusion 1,000 mL 10-04 12:15: 00 10-04 14:01 :50 No 1000mL at 999 mL/hr, 1,000 mL, Intravenou s, ONCE, 1 dose, On Mon10/04/22 at 0715, Routine [facility] acetaminoph en ADULT (OFIRMEV) injection 1,000 mg 10-04 03:00: 00 10-04 19:33 :00 No 1000mg 1,000 mg, IV Infusion, at 400 mL/hr Administer over 15 Minutes, Q8H, 3 doses, First dose (after last reorder) on Mon10/03/22 at 2200, Last dose on Mon10/04/22 at 1400, Routine
Indicatio n: Perioperat jackson Patient [facility] D5W 0.45% NaCl (1/2NS) 1 L + KCL 20 mEq 10-03 18:00: 00 10-05 16:00 :18 No IV Infusion, at 150 mL/hr, CONTINUOUS , Starting on Mon10/03/22 at 1300, Until Mon10/05/22 at 1100, Routine [facility] D5W 0.45% NaCl (1/2NS) 1 L + KCL 20 mEq 10-03 17:15: 00 10-03 17:49 :34 No IV Infusion, at 42 mL/hr, CONTINUOUS , Starting on Mon10/03/22 at 1215, Until Mon10/03/22 at 1249, Routine [facility] D5W 0.45% NaCl (1/2NS) 1 L + KCL 20 mEq 10-03 16:45: 00 10-03 17:09 :32 No IV Infusion, at 75 mL/hr, CONTINUOUS , Starting on Mon10/03/22 at 1145, Until Mon10/03/22 at 1209, Routine [facility] KCL (KLOR-CON M20) tablet 40 mEq 10-03 14:45: 00 10-03 14:50 :00 No 40meq 40 mEq, Oral, ONCE, 1 dose, On Mon10/03/22 at 0945, Routine [facility] methocarbam oL (ROBAXIN) injection 500 mg 10-02 19:00: 00 10-07 14:15 :45 No 500mg 500 mg, Intravenou s, Q8H, First dose on Mon10/02/22 at 1400, Until Discontinu ed, Routine [facility] acetaminoph en ADULT (OFIRMEV) injection 1,000 mg 10-02 19:00: 00 10-03 18:59 :00 No 1000mg 1,000 mg, IV Infusion, at 400 mL/hr Administer over 15 Minutes, Q8H, 3 doses, First dose (after last reorder) on Mon10/02/22 at 1400, Last dose on Mon10/03/22 at 0600, Routine
Indicatio n: Perioperat jackson Patient [facility] D5W 0.45% NaCl (1/2NS) 1 L + KCL 20 mEq 10-02 17:30: 00 10-03 16:43 :14 No IV Infusion, at 125 mL/hr, CONTINUOUS , Starting on Mon10/02/22 at 1230, Until 10/03/22 at 1143, Routine [facility] morpHINE (2 mg/mL) injection 2 mg 10-02 13:33: 31 Yes 2mg 2 mg, Slow IV Push, Q4HPRN, Starting on Mon10/02/22 at 0833, Until Discontinu ed, Routine, Pain (scale 7-10) [facility] piperacilli n-tazobacta m (ZOSYN) 3.375 g in NaCl 0.9% (NS) 100 mL MINI-BAG 10-02 00:00: 00 10-04 13:19 :35 No 3.375g 3.375 g, IV Piggyback, Q8H ABX, 12 doses, First dose on Mon10/01/22 at 1900, Last dose on Mon10/05/22 at 1100, Administer over 4 Hours, 100 mL
Reas on for Anti-Infec tive: Documented Infection& lt;br>Docu mented Infection Site: Abdominal< br>Duratio n of Therapy: 7 days [facility] piperacilli n-tazobacta m (ZOSYN) 3.375 g in NaCl 0.9% (NS) 100 mL MINI-BAG 10-01 16:15: 00 10-01 16:18 :00 No 3.375g 3.375 g, IV Piggyback, ONCE, 1 dose, On Mon10/01/22 at 1115, Administer over 30 Minutes, 100 mL
Reas on for Anti-Infec tive: Documented Infection< br>Documen wanda Infection Site: Abdominal< br>Duratio n of Therapy: 7 days [facility] acetaminoph en ADULT (OFIRMEV) injection 1,000 mg 10-01 03:00: 00 10-01 20:58 :00 No 1000mg 1,000 mg, IV Infusion, at 400 mL/hr Administer over 15 Minutes, Q8H, 3 doses, First dose (after last reorder) on Mon09/30/22 at 2200, Last dose on Mon10/01/22 at 1400, Routine
Indicatio n: Perioperat jackson Patient [facility] morpHINE 30 mg/30 mL (fixed dose) OIL DISPENSER injection 09-30 16:30: 00 Yes Patient Bolus Dose: 1 mg
Lock out Interval: 10 Minutes
Basal Rate: 0 mg/hr
F our Hour Dose Limit: 24 mg
Intr avenous, 30 mL, CONTINUOUS , Starting on Mon09/30/22 at 1130, Until Discontinu ed [facility] morpHINE 30 mg/30 mL (fixed dose) OIL DISPENSER injection 09-30 16:30: 00 10-02 13:34 :01 No Patient Bolus Dose: 1 mg
Lock out Interval: 10 Minutes
Basal Rate: 0 mg/hr
F our Hour Dose Limit: 24 mg
Intr avenous, 30 mL, CONTINUOUS , Starting on Mon09/30/22 at 1130, Until 10/02/22 at 0834 [facility] lactated ringers IV infusion 1,000 mL 09-30 15:30: 00 Yes 1000mL at 125 mL/hr, 1,000 mL, IV Infusion, CONTINUOUS , Starting on Mon09/30/22 at 1030, Until Discontinu ed, Routine [facility] lactated ringers IV infusion 1,000 mL 09-30 15:30: 00 10-02 15:39 :25 No 1000mL at 125 mL/hr, 1,000 mL, IV Infusion, CONTINUOUS , Starting on Mon09/30/22 at 1030, Until 10/02/22 at 1039, Routine [facility] naloxone (NARCAN) injection 0.1 mg 09-30 15:29: 12 Yes .1mg 0.1 mg, Slow IV Push, SEE-INSTRU CTIONS, Starting on Mon09/30/22 at 1029, Until Discontinu ed, Routine [facility] naloxone (NARCAN) injection 0.1 mg 09-30 15:29: 12 Yes .1mg 0.1 mg, Slow IV Push, SEE-INSTRU CTIONS, Starting on Mon09/30/22 at 1029, Until Discontinu ed, Routine [facility] ipratropium -albuteroL (DUONEB) 0.5 mg-3 mg(2.5 mg base)/3 mL nebulizer solution 3 mL 09-30 13:00: 00 Yes 3mL 3 mL, Inhalation , Q6HA, First dose on Mon09/30/22 at 0800, Until Discontinu ed, Routine [facility] ipratropium -albuteroL (DUONEB) 0.5 mg-3 mg(2.5 mg base)/3 mL nebulizer solution 3 mL 09-30 13:00: 00 10-01 15:20 :05 No 3mL 3 mL, Inhalation , Q6HA, First dose on Mon09/30/22 at 0800, Until Discontinu ed, Routine [facility] pantoprazol e (PROTONIX) injection 40 mg 09-30 08:00: 00 Yes 40mg 40 mg, Slow IV Push, Q24H, First dose on Mon09/30/22 at 0300, Until Discontinu ed [facility] pantoprazol e (PROTONIX) injection 40 mg 09-30 08:00: 00 Yes 40mg 40 mg, Slow IV Push, Q24H, First dose on Mon09/30/22 at 0300, Until Discontinu ed [facility] fentaNYL PF (SUBLIMAZE) STD 2,500 mcg in NaCl 0.9% (NS) 250 mL infusion RTU 09-30 07:55: 44 09-30 15:29 :52 No 25ug/h 25-200 mcg/hr (2.5-20 mL/hr), IV Infusion, TITRATE, CPOT/Pain Scale Goals Determined by Provider, Starting on Mon09/30/22 at 0255
In itiate infusion at 25 mcg/hr. Titrate by 25 mcg/hr every 1 minute to 15 minutes to identified goal pain and/or sedation scores. Maximum dose = 200 mcg/hr. If goal not maintained at maximum allowed dose, contact prescriber .
[facility] albumin (ALBUTEIN 5 %) 5 % injection 25 g 09-30 07:30: 00 09-30 06:46 :00 No 25g 25 g, IV Infusion, ONCE, 1 dose, On Mon09/30/22 at 0230, 500 mL
Sharla cation: SHOCK/IMPE NDING SHOCK [facility] midazolam (VERSED) STD 50mg in NaCl 0.9% (NS) 50 mL infusion RTU 09-30 07:25: 32 09-30 15:29 :52 No 1mg/h 1-10 mg/hr (1-10 mL/hr), IV Infusion, TITRATE, Sedation-R ASS score (0 to -1), Starting on Mon09/30/22 at 0225
In itiate infusion at 1 mg/hr and titrate by 1 mg/hr every 3 minutes to 10 minutes to goal sedation score. Maximum dose = 10 mg/hr.&nbs p; If goal not maintained at maximum allowed dose, contact prescriber .
[facility] dexMEDEtomi dine 200 mcg in 0.9 % NaCl 50 mL (PRECEDEX) RTU IV infusion 09-30 06:13: 37 09-30 06:25 :49 No .2ug/kg /h 0.2-1.5 mcg/kg/hr ?128.4 kg (6.42-48.1 5 mL/hr), IV Infusion, TITRATE, Sedation-R ASS score (0 to -1), Starting on Mon09/30/22 at 0113
In itiate infusion at 0.2 mcg/kg/hr and titrate by 0.1 mcg/kg/hr every 30 minutes to goal sedation score. Maximum dose = 1.5 mcg/kg/hr. If goal not maintained at maximum allowed dose, contact prescriber .
[facility] acetaminoph en ADULT (OFIRMEV) injection 1,000 mg 09-30 03:00: 00 09-30 18:37 :00 No 1000mg 1,000 mg, IV Infusion, at 400 mL/hr Administer over 15 Minutes, Q8H, 3 doses, First dose on Mon09/29/22 at 2200, Last dose on Mon09/30/22 at 1400, Routine
Indicatio n: Perioperat jackson Patient [facility] propofoL IV infusion 09-30 01:10: 57 09-30 05:13 :51 No 5ug/kg/ min 5-50 mcg/kg/min ?128.4 kg (3.852-38. 52 mL/hr, rounded to 3.85-38.52 mL/hr), IV Infusion, TITRATE, Sedation-R ASS score (0 to -1), Starting on Evonne 09/29/22 at 2009
In itiate infusion at 5 mcg/kg/min and titrate by 5 mcg/kg/min every 30 seconds to 10 minutes to goal sedation score. Maximum dose = 50 mcg/kg/min . If goal not maintained at maximum allowed dose, contact prescriber . &nbs p;Tubing and unused portions of vials should be discarded after [address]
[facility] midazolam (VERSED) injection 2 mg 09-30 00:21: 30 09-30 15:29 :52 No 2mg 2 mg, IV Push, Q2HPRN, Starting on Evonne 09/29/22 at 1921, Until Mon09/30/22 at 1029, Routine, Sedation to RASS score 0 to -1 [facility] PHENYLephri ne 1000 mcg/10 mL in 0.9% NaCl syringe 09-29 20:33: 00 09-29 23:20 :54 No Slow IV Push, CONTINUOUS PRN, Starting on Mon09/29/22 at 1533, Until Discontinu ed, Routine, Intra-op [facility] HYDROmorphO ne (DILAUDID) injection 09-29 19:36: 00 09-29 23:20 :54 No Slow IV Push, ONCE INTRA PROCEDURE, Starting on Evonne 09/29/22 at 1436, Until Discontinu ed, Routine, Intra-op [facility] methocarbam oL (ROBAXIN) injection 1,000 mg 09-29 19:00: 00 10-02 18:59 :00 No 1000mg 1,000 mg, Intravenou s, Q8H, 9 doses, First dose on Mon09/29/22 at 1400, Last dose on Mon10/02/22 at 0600, Routine [facility] methocarbam oL (ROBAXIN) injection 1,000 mg 09-29 19:00: 00 10-02 18:59 :00 No 1000mg 1,000 mg, Intravenou s, Q8H, 9 doses, First dose on Mon09/29/22 at 1400, Last dose on Mon10/02/22 at 0600, Routine [facility] dexamethaso ne (DECADRON PHOSPHATE) injection 09-29 18:44: 00 09-29 23:20 :54 No IV Push, ONCE INTRA PROCEDURE, Starting on Evonne 09/29/22 at 1344, Until Discontinu ed, Routine, Intra-op [facility] lactated ringers IV infusion 09-29 18:29: 00 09-29 23:20 :54 No IV Infusion, CONTINUOUS PRN, Starting on Evonne 09/29/22 at 1329, Until Discontinu ed, Routine, Intra-op [facility] lactated ringers IV infusion 09-29 18:29: 00 09-29 23:20 :54 No IV Infusion, CONTINUOUS PRN, Starting on Evonne 09/29/22 at 1329, Until Discontinu ed, Routine, Intra-op [facility] FENTanyl PF (SUBLIMAZE (PF)) injection 09-29 18:29: 00 09-29 23:20 :54 No Slow IV Push, ONCE INTRA PROCEDURE, Starting on Evonne 09/29/22 at 1329, Until Discontinu ed, Routine, Intra-op [facility] rocuronium (ZEMURON) injection 09-29 18:29: 00 09-29 23:20 :54 No IV Push, ONCE INTRA PROCEDURE, Starting on Evonne 09/29/22 at 1329, Until Discontinu ed, Routine, Intra-op [facility] propofoL IV infusion 09-29 18:29: 00 09-29 23:20 :54 No Slow IV Push, ONCE INTRA PROCEDURE, Starting on Evonne 09/29/22 at 1329, Until Discontinu ed, Routine, Intra-op [facility] lidocaine 1% (XYLOCAINE) 100 mg/10 mL (1 %) injection 09-29 18:29: 00 09-29 23:20 :54 No Slow IV Push, ONCE INTRA PROCEDURE, Starting on Evonne 09/29/22 at 1329, Until Discontinu ed, Routine, Intra-op [facility] midazolam (VERSED) injection 09-29 18:21: 00 09-29 23:20 :54 No IV Push, ONCE INTRA PROCEDURE, Starting on Mon09/29/22 at 1321, Until Discontinu ed, Routine, Intra-op [facility] levETIRAcet am (KEPPRA) in NACL (ISO-OS) 1,000 mg/100 mL RTU 09-29 16:00: 00 Yes 1000mg 1,000 mg, IV Piggyback, Q12H, First dose on Mon09/29/22 at 1100, Until Discontinu ed, Administer over 15 Minutes, 100 mL [facility] levETIRAcet am (KEPPRA) in NACL (ISO-OS) 1,000 mg/100 mL RTU 09-29 16:00: 00 10-09 01:09 :41 No 1000mg 1,000 mg, IV Piggyback, Q12H, First dose on Mon09/29/22 at 1100, Until Discontinu ed, Administer over 15 Minutes, 100 mL [facility] piperacilli n-tazobacta m (ZOSYN) 3.375 g in NaCl 0.9% (NS) 100 mL MINI-BAG 09-29 15:58: 00 10-13 15:59 :00 No 3.375g 3.375 g, IV Piggyback, Q8H ABX, 42 doses, First dose (after last modificati on) on Mon09/29/22 at 1100, Last dose on Mon10/13/22 at 0300, Administer over 4 Hours, 100 mL
Reas on for Anti-Infec tive: Documented Infection< br>Documen wanda Infection Site: Abdominal< br>Duratio n of Therapy: 14 days [facility] piperacilli n-tazobacta m (ZOSYN) 3.375 g in NaCl 0.9% (NS) 100 mL MINI-BAG 09-29 15:58: 00 10-01 13:34 :39 No 3.375g 3.375 g, IV Piggyback, Q8H ABX, 42 doses, First dose (after last modificati on) on Mon09/29/22 at 1100, Last dose on Mon10/13/22 at 0300, Administer over 4 Hours, 100 mL
Reas on for Anti-Infec tive: Documented Infection< br>Documen wanda Infection Site: Abdominal< br>Duratio n of Therapy: 14 days [facility] lactated ringers IV infusion 1,000 mL 09-29 13:45: 00 09-30 15:29 :52 No 1000mL at 75 mL/hr, 1,000 mL, IV Infusion, CONTINUOUS , Starting on Mon09/29/22 at 0845, Until Mon09/30/22 at 1029, Routine [facility] enoxaparin (LOVENOX) injection 30 mg 09-29 13:00: 00 Yes 30mg 30 mg, Subcutaneo us, Q12H, First dose on Mon09/29/22 at 0800, Until Discontinu ed, Routine [facility] enoxaparin (LOVENOX) injection 30 mg 09-29 13:00: 00 Yes 30mg 30 mg, Subcutaneo us, Q12H, First dose on Mon09/29/22 at 0800, Until Discontinu ed, Routine [facility] iopamidol (ISOVUE 370-500 mL) injection 120 mL 09-29 10:06: 00 09-29 09:50 :00 No [id number] 120mL 120 mL, Intravenou s, ONCE, 1 dose, On Evonne 09/29/22 at 0515, Routine [facility] magnesium sulfate in water 4 gram/50 mL (8 %) IV Piggyback 4 g 09-29 09:30: 00 09-29 12:09 :00 No 4g 4 g, IV Piggyback, at 25 mL/hr Administer over 120 Minutes, ONCE, 1 dose, On Evonne 09/29/22 at 0430, Routine [facility] potassium phosphate 30 mmol in NaCl 0.9% (NS) 250 mL piggyback 09-29 09:30: 00 09-29 14:15 :00 No 30mmol 30 mmol, IV Piggyback, ONCE, 1 dose, On Mon09/29/22 at 0430, 250 mL [facility] NaCl 0.9% (NS) bolus infusion 1,000 mL 09-29 09:30: 00 09-29 10:12 :39 No 1000mL at 999 mL/hr, 1,000 mL, IV Piggyback, ONCE, 1 dose, On Mon09/29/22 at 0430, STAT [facility] acetaminoph en ADULT (OFIRMEV) injection 1,000 mg 09-29 07:00: 00 09-30 06:56 :11 No 1000mg 1,000 mg, IV Infusion, at 400 mL/hr Administer over 15 Minutes, Q8HA1, 3 doses, First dose (after last reorder) on Mon09/29/22 at 0200, Last dose on Mon09/29/22 at 1800, Routine
Indicatio n: Non-periop erative Patient
Approved by: Per Policy (NPO Status) [facility] lactated ringers IV infusion 1,000 mL 09-29 06:45: 00 09-29 06:01 :27 No 1000mL at 999 mL/hr, 1,000 mL, Intravenou s, ONCE, 1 dose, On Mon09/29/22 at 0145, Routine [facility] proMETHazin e (PHENERGAN) 25 mg in NS 50 mL IV piggyback (CNR) 09-29 05:45: 00 09-29 05:56 :00 No 25mg 25 mg, IV Piggyback, at 200 mL/hr Administer over 15 Minutes, ONCE, 1 dose, On Evonne 09/29/22 at 0045, Routine [facility] ondansetron (ZOFRAN (PF)) injection 4 mg 09-29 03:56: 10 Yes 4mg 4 mg, Slow IV Push, Q6HPRN, Nausea and Vomiting (N/V), Starting on Mon09/28/22 at 2256
Do ses of ondansetro n 16 mg and above need to be administer ed via IV piggyback. For Dose >=24mg ECG monitoring is advisable.
[facility] ondansetron (ZOFRAN (PF)) injection 4 mg 09-29 03:56: 10 Yes 4mg 4 mg, Slow IV Push, Q6HPRN, Nausea and Vomiting (N/V), Starting on Mon09/28/22 at 2256
Do ses of ondansetro n 16 mg and above need to be administer ed via IV piggyback. For Dose >=24mg ECG monitoring is advisable.
[facility] acetaminoph en ADULT (OFIRMEV) injection 1,000 mg 09-28 16:00: 00 09-29 01:16 :00 No 1000mg 1,000 mg, IV Infusion, at 400 mL/hr Administer over 15 Minutes, Q12H, 2 doses, First dose on Mon09/28/22 at 1100, Last dose on Mon09/28/22 at 2000, Routine
Indicatio n: Non-periop erative Patient
Approved by: Per Policy (NPO Status) [facility] levETIRAcet am (KEPPRA) tablet 1,000 mg 09-28 15:45: 00 09-29 15:59 :33 No 1000mg 1,000 mg, Oral, BID, First dose (after last modificati on) on Mon09/28/22 at 1045, Until Discontinu ed, Routine [facility] pantoprazol e (PROTONIX) EC tablet 40 mg 09-28 14:00: 00 09-30 06:56 :11 No 40mg 40 mg, Oral, DAILY, First dose on Mon09/28/22 at 0900, Until Discontinu ed, Routine
Indicatio n for use: None of the above Univers [facility] lactated ringers IV infusion 1,000 mL 09-28 12:15: 00 09-28 13:56 :48 No 1000mL at 999 mL/hr, 1,000 mL, IV Infusion, ONCE, 1 dose, On Mon09/28/22 at 0715, STAT [facility] lactated ringers IV infusion 1,000 mL 09-28 11:30: 00 09-28 17:24 :34 No 1000mL at 125 mL/hr, 1,000 mL, IV Infusion, CONTINUOUS , Starting on Mon09/28/22 at 0630, Until Mon09/28/22 at 1224, Routine [facility] morpHINE (2 mg/mL) injection 2 mg 09-28 11:23: 47 09-29 13:38 :47 No 2mg 2 mg, Slow IV Push, Q6HPRN, Starting on Mon09/28/22 at 0623, Until Evonne 09/29/22 at 0838, Routine, Pain (scale 7-10) [facility] traMADoL (ULTRAM) tablet 50 mg 09-28 11:23: 34 09-29 13:38 :47 No 50mg 50 mg, Oral, Q6HPRN, Starting on Mon09/28/22 at 0623, Until Evonne 09/29/22 at 0838, Routine, Pain (scale 4-6) [facility] iopamidol (ISOVUE 370-500 mL) injection 80 mL 09-28 10:53: 00 09-28 10:40 :00 No [id number] 80mL 80 mL, Intravenou s, ONCE, 1 dose, On Mon09/28/22 at 0600, Routine [facility] lactated ringers IV infusion 1,000 mL 09-28 10:30: 00 09-28 11:15 :00 No 1000mL at 999 mL/hr, 1,000 mL, Intravenou s, ONCE, 1 dose, On Mon09/28/22 at 0530, STAT [facility] NaCl 0.9% (NS) bolus infusion 1,000 mL 09-28 09:30: 00 09-28 09:30 :00 No 1000mL at 999 mL/hr, 1,000 mL, IV Infusion, ONCE, 1 dose, On Mon09/28/22 at 0430, STAT [facility] iopamidol (ISOVUE 370-500 mL) injection 100 mL 09-28 09:00: 00 09-28 08:04 :00 No [id number] 100mL 100 mL, Intravenou s, ONCE, 1 dose, On Mon09/28/22 at 0400, Routine [facility] multivit,th x,calcium,i radha,mins (MULTIVITAM IN AND MINERAL ORAL) 10-02 20:54: 50 10-02 00:00 :00 No Take by mouth. [facility] multivit,th x,calcium,i radha,mins (MULTIVITAM IN AND MINERAL ORAL) 10-02 20:54: 50 10-02 00:00 :00 No Take by mouth. [facility] multivit,th x,calcium,i radha,mins (MULTIVITAM IN AND MINERAL ORAL) 08-08 21:03: 07 Yes Take by mouth. [facility] multivit,th x,calcium,i radha,mins (MULTIVITAM IN AND MINERAL ORAL) 08-08 21:03: 07 Yes Take by mouth. [facility] multivit,th x,calcium,i radha,mins (MULTIVITAM IN AND MINERAL ORAL) 08-08 21:03: 07 Yes Take by mouth. [facility] levETIRAcet am 1,000 mg tablet 07-10 00:00: 00 Yes 1000mg Take 1,000 mg by mouth 2 (two) times daily. [facility] levETIRAcet am 1,000 mg tablet 2020-0 - 00:00: 00 Yes 1000mg Take 1,000 mg by mouth 2 (two) times daily. [facility] levETIRAcet am 1,000 mg tablet 2020-0 - 00:00: 00 Yes 1000mg Take 1,000 mg by mouth 2 (two) times daily. [facility] levETIRAcet am 1,000 mg tablet 2020-0 - 00:00: 00 Yes 1000mg Take 1,000 mg by mouth 2 (two) times daily. [facility] levETIRAcet am 1,000 mg tablet 2020-0 07-10 00:00: 00 Yes 1000mg Take 1,000 mg by mouth 2 (two) times daily. [facility] levETIRAcet am 1,000 mg tablet 2020-0 07-10 00:00: 00 Yes 1000mg Take 1,000 mg by mouth 2 (two) times daily. [facility] levETIRAcet am 1,000 mg tablet 2020-0 07-10 00:00: 00 Yes 1000mg Take 1,000 mg by mouth 2 (two) times daily. [facility] levETIRAcet am 1,000 mg tablet 2020-0 07-10 00:00: 00 Yes 1000mg Take 1,000 mg by mouth 2 (two) times daily. [facility] levETIRAcet am 1,000 mg tablet 2020-0 07-10 00:00: 00 Yes 1000mg Take 1,000 mg by mouth 2 (two) times daily. [facility] levETIRAcet am 1,000 mg tablet 2020-0 07-10 00:00: 00 Yes 1000mg Take 1,000 mg by mouth 2 (two) times daily. [facility] levETIRAcet am 1,000 mg tablet 2020-0 - 00:00: 00 Yes 1000mg Take 1,000 mg by mouth 2 (two) times daily. [facility] levETIRAcet am 1,000 mg tablet 2020-0 07-10 00:00: 00 Yes 1000mg Take 1,000 mg by mouth 2 (two) times daily. [facility] levETIRAcet am 1,000 mg tablet 2020-0 07-10 00:00: 00 Yes 1000mg Take 1,000 mg by mouth 2 (two) times daily. [facility] levETIRAcet am 1,000 mg tablet 2020-0 07-10 00:00: 00 Yes 1000mg Take 1,000 mg by mouth 2 (two) times daily. [facility] levETIRAcet am 1,000 mg tablet 2020-0 07-10 00:00: 00 Yes 1000mg Take 1,000 mg by mouth 2 (two) times daily. [facility] levETIRAcet am 1,000 mg tablet 2020-0 07-10 00:00: 00 Yes 1000mg Take 1,000 mg by mouth 2 (two) times daily. [facility] levETIRAcet am 1,000 mg tablet 2020-0 07-10 00:00: 00 Yes 1000mg Take 1,000 mg by mouth 2 (two) times daily. [facility] levETIRAcet am 1,000 mg tablet 2020-0 07-10 00:00: 00 Yes 1000mg Take 1,000 mg by mouth 2 (two) times daily. [facility] levETIRAcet am 1,000 mg tablet 2020-0 07-10 00:00: 00 Yes 1000mg Take 1,000 mg by mouth 2 (two) times daily. [facility] levETIRAcet am 1,000 mg tablet 2020-0 07-10 00:00: 00 Yes 1000mg Take 1,000 mg by mouth 2 (two) times daily. [facility] levETIRAcet am 1,000 mg tablet 2020-0 07-10 00:00: 00 Yes 1000mg Take 1,000 mg by mouth 2 (two) times daily. [facility] levETIRAcet am 1,000 mg tablet 2020-0 07-10 00:00: 00 Yes 1000mg Take 1,000 mg by mouth 2 (two) times daily. [facility] levETIRAcet am 1,000 mg tablet 2020-0 07-10 00:00: 00 Yes 1000mg Take 1,000 mg by mouth 2 (two) times daily. [facility] levETIRAcet am 1,000 mg tablet 2020-0 07-10 00:00: 00 Yes 1000mg Take 1,000 mg by mouth 2 (two) times daily. [facility] levETIRAcet am 1,000 mg tablet 2020-0 07-10 00:00: 00 Yes 1000mg Take 1,000 mg by mouth 2 (two) times daily. [facility] levETIRAcet am 1,000 mg tablet 2020-0 07-10 00:00: 00 Yes 1000mg Take 1,000 mg by mouth 2 (two) times daily. [facility] levETIRAcet am 1,000 mg tablet 2020-0 07-10 00:00: 00 Yes 1000mg Take 1,000 mg by mouth 2 (two) times daily. [facility] levETIRAcet am 1,000 mg tablet 2020-0 07-10 00:00: 00 Yes 1000mg Take 1,000 mg by mouth 2 (two) times daily. [facility] levETIRAcet am 1,000 mg tablet 2020-0 07-10 00:00: 00 Yes 1000mg Take 1,000 mg by mouth 2 (two) times daily. [facility] levETIRAcet am 1,000 mg tablet 2020-0 07-10 00:00: 00 Yes 1000mg Take 1,000 mg by mouth 2 (two) times daily. [facility] levETIRAcet am 1,000 mg tablet 2020-0 07-10 00:00: 00 Yes 1000mg Take 1,000 mg by mouth 2 (two) times daily. [facility] levETIRAcet am 1,000 mg tablet 2020-0 07-10 00:00: 00 Yes 1000mg Take 1,000 mg by mouth 2 (two) times daily. [facility] Immunizations Ordered Immunization Name Filled Immunization Name Date Status Comments Source TD Pres-Free 2022-09-28 00:00:00 Completed [facility] TD Pres-Free 2022-09-28 00:00:00 Completed [facility] TD Pres-Free 2022-09-28 00:00:00 Completed [facility] TD Pres-Free 2022-09-28 00:00:00 Completed [facility] TD Pres-Free 2022-09-28 00:00:00 Completed [facility] TD Pres-Free 2022-09-28 00:00:00 Completed [facility] TD Pres-Free 2022-09-28 00:00:00 Completed [facility] TD Pres-Free 2022-09-28 00:00:00 Completed [facility] TD Pres-Free 2022-09-28 00:00:00 Completed [facility] TD Pres-Free 2022-09-28 00:00:00 Completed [facility] TD Pres-Free 2022-09-28 00:00:00 Completed [facility] TD Pres-Free 2022-09-28 00:00:00 Completed [facility] TD Pres-Free 2022-09-28 00:00:00 Completed [facility] TD Pres-Free 2022-09-28 00:00:00 Completed [facility] TD Pres-Free 2022-09-28 00:00:00 Completed [facility] TD Pres-Free 2022-09-28 00:00:00 Completed [facility] TD Pres-Free 2022-09-28 00:00:00 Completed [facility] TD Pres-Free 2022-09-28 00:00:00 Completed [facility] TD Pres-Free Unknown Completed [facility] TD Pres-Free Unknown Completed [facility] TD Pres-Free Unknown Completed [facility] Vital Signs Vital Name Observation Time Observation Value Comments S ource Body temperature 2023-02-16 15:38:00 36.56 Katia [facility] Body weight 2023-02-16 15:38:00 116.574 kg [facility] BMI 2023-02-16 15:38:00 34.86 kg/m2 [facility] Systolic blood pressure 2022-11-28 19:10:00 135 mm[Hg] [facility] Diastolic blood pressure 2022-11-28 19:10:00 76 mm[Hg] [facility] Heart rate 2022-11-28 19:10:00 97 /[facility] temperature 2022-11-28 19:10:00 36.28 Katia [facility] Respiratory rate 2022-11-28 19:10:00 18 /min [facility] Body height 2022-11-28 19:10:00 182.9 cm [facility] Body weight 2022-11-28 19:10:00 112.719 kg Univ [facility] BMI 2022-11-28 19:10:00 33.70 kg/m2 [facility] Oxygen saturation in Arterial blood by Pulse oximetry 2022-11-28 19:10:00 97 /min [facility] Body temperature 2022-11-17 15:20:00 36.5 Katia [facility] Body weight 2022-11-17 15:20:00 111.403 kg [facility] BMI 2022-11-17 15:20:00 33.31 kg/m2 [facility] Body temperature 2022-10-27 15:24:00 36.44 Katia [facility] Body weight 2022-10-27 15:24:00 108.636 kg [facility] BMI 2022-10-27 15:24:00 32.48 kg/m2 [facility] Systolic blood pressure 2022-10-18 19:24:00 118 mm[Hg] [facility] Diastolic blood pressure 2022-10-18 19:24:00 68 mm[Hg] [facility] Heart rate 2022-10-18 19:24:00 92 /min [facility] Body temperature 2022-10-18 19:24:00 36.28 Katia [facility] Respiratory rate 2022-10-18 19:24:00 14 /min [facility] Body height 2022-10-18 19:24:00 182.9 cm [facility] Body weight 2022-10-18 19:24:00 106.595 kg [facility] BMI 2022-10-18 19:24:00 31.87 kg/m2 [facility] Oxygen saturation in Arterial blood by Pulse oximetry 2022-10-18 19:24:00 96 /min [facility] Systolic blood pressure 2022-10-09 21:51:00 120 mm[Hg] [facility] Diastolic blood pressure 2022-10-09 21:51:00 59 mm[Hg] [facility] Heart rate 2022-10-09 21:51:00 53 /min [facility] Body temperature 2022-10-09 21:51:00 36.78 Katia [facility] Oxygen saturation in Arterial blood by Pulse oximetry 2022-10-09 21:51:00 99 /min [facility] Respiratory rate 2022-10-09 17:00:00 20 /min [facility] Body weight 2022-10-07 01:00:00 112.175 kg [facility] BMI 2022-10-07 01:00:00 33.54 kg/m2 [facility] Body height 2022-09-28 12:15:07 182.9 cm [facility] Respiratory rate 2022-09-29 22:47:00 19 /min [facility] Systolic blood pressure 2022-09-29 17:00:00 122 mm[Hg] [facility] Diastolic blood pressure 2022-09-29 17:00:00 64 mm[Hg] [facility] Heart rate 2022-09-29 17:00:00 116 /min [facility] Body temperature 2022-09-29 17:00:00 37.89 Katia [facility] Respiratory rate 2022-09-29 17:00:00 22 /min [facility] Oxygen saturation in Arterial blood by Pulse oximetry 2022-09-29 17:00:00 96 /min [facility] Body height 2022-09-28 12:15:07 182.9 cm [facility] Body weight 2022-09-28 10:21:49 128.368 kg [facility] BMI 2022-09-28 10:21:49 38.38 kg/m2 [facility] Body temperature 2022-09-28 09:30:00 37.28 Katia [facility] Heart rate 2022-09-28 09:24:00 98 /min [facility] Respiratory rate 2022-09-28 09:24:00 30 /min [facility] Oxygen saturation in Arterial blood by Pulse oximetry 2022-09-28 09:24:00 96 /min [facility] Systolic blood pressure 2022-09-28 09:20:00 104 mm[Hg] [facility] Diastolic blood pressure 2022-09-28 09:20:00 59 mm[Hg] [facility] Body height 2022-09-28 07:15:00 177.8 cm [facility] Body weight 2022-09-28 07:15:00 128.368 kg [facility] BMI 2022-09-28 07:15:00 40.61 kg/m2 [facility] Systolic blood pressure 2020-10-02 20:33:00 113 mm[Hg] [facility] Diastolic blood pressure 2020-10-02 20:33:00 66 mm[Hg] [facility] Heart rate 2020-10-02 20:33:00 84 /min [facility] Body height 2020-10-02 20:33:00 177.8 cm [facility] Body weight 2020-10-02 20:33:00 128.368 kg [facility] BMI 2020-10-02 20:33:00 40.61 kg/m2 [facility] Procedures Procedure Date / Time Performed Performing Clinician Source XR TOES 2 VW RIGHT 2023-02-16 15:07:08 Gómez Peters [facility] XR TOES 2 VW RIGHT 2022-11-17 15:15:00 Gómez Peters [facility] XR TOES 2 VW RIGHT 2022-10-27 14:50:00 Gómez Peters [facility] STATEMENT OF PATIENT FINANCIAL RESPONSIBILITY 2022-10-27 05:01:00 Doctor Unassigned, [place] [facility] CONSENT/REFUSAL FOR DIAGNOSIS AND TREATMENT 2022-10-18 19:04:14 Doctor Unassigned, [place] [facility] PHOSPHORUS 2022-10-09 10:11:00 Jairon ojeda [facility] MAGNESIUM 2022-10-09 10:11:00 Jairon ojeda [facility] BASIC METABOLIC PANEL (NA, K, CL, CO2, GLUCOSE, BUN, CREATININE, CA) 2022-10-09 10:11:00 Jairon Avliez [facility] CBC WITH DIFF 2022-10-09 10:11:00 Jairon ojeda [facility] PHOSPHORUS 2022-10-08 09:50:00 Jaiorn ojeda [facility] MAGNESIUM 2022-10-08 09:50:00 Jairon ojeda [facility] BASIC METABOLIC PANEL (NA, K, CL, CO2, GLUCOSE, BUN, CREATININE, CA) 2022-10-08 09:50:00 Jairon Avilez [facility] CBC WITH DIFF 2022-10-08 09:50:00 Jairon ojeda [facility] PHOSPHORUS 2022-10-07 10:13:00 Jairon ojeda [facility] MAGNESIUM 2022-10-07 10:13:00 Jairon ojeda [facility] BASIC METABOLIC PANEL (NA, K, CL, CO2, GLUCOSE, BUN, CREATININE, CA) 2022-10-07 10:13:00 Jairon Avilez [facility] CBC WITH DIFF 2022-10-07 10:13:00 Jairon ojeda [facility] PHOSPHORUS 2022-10-06 09:37:00 Jairon ojeda [facility] MAGNESIUM 2022-10-06 09:37:00 Jairon ojeda [facility] BASIC METABOLIC PANEL (NA, K, CL, CO2, GLUCOSE, BUN, CREATININE, CA) 2022-10-06 09:37:00 Jairon Avilez [facility] CBC WITH DIFF 2022-10-06 09:37:00 Jairon ojeda [facility] CT ABDOMEN PELVIS W CONTRAST 2022-10-06 02:16:35 Kraig [facility] XR KUB 2022-10-05 11:27:[address] [facility] PHOSPHORUS 2022-10-05 10:56:00 [facility] MAGNESIUM 2022-10-05 10:56:00 [facility] (NA, K, CL, CO2, GLUCOSE, BUN, CREATININE, CA) 2022-10-05 10:56:00 [facility] 2022-10-05 10:56[facility]00 [facility] 2022-10-04 08:24:00 Viri [facility] MAGNESIUM 2022-10-04 08:24:00 Viri Bravo [facility] BASIC METABOLIC PANEL (NA, K, CL, CO2, GLUCOSE, BUN, CREATININE, CA) 2022-10-04 08:24:00 Hadley [facility] CBC WITH DIFF 2022-10-04 08:24:00 [facility] 2022-10-03 19:02:00 Simba Curiel [facility] PHOSPHORUS 2022-10-03 10:31:00 Glenis [facility] MAGNESIUM 2022-10-03 10:31:00 Glenis [facility] BASIC METABOLIC PANEL (NA, K, CL, CO2, GLUCOSE, BUN, CREATININE, CA) 2022-10-03 10:31:00 Hadley, [facility] CBC WITH DIFF 2022-10-03 10:31:00 [facility] 2022-10-02 07:46:[address] [facility] MAGNESIUM 2022-10-02 07:46:[address] [facility] IONIZED CALCIUM 2022-10-02 07:46:[address] [facility] BASIC METABOLIC PANEL (NA, K, CL, CO2, GLUCOSE, BUN, CREATININE, CA) 2022-10-02 07:46:[address] [facility] CBC WITHOUT DIFF 2022-10-02 07:46:[address] [facility] PHOSPHORUS 2022-10-01 09:57:[address] [facility] MAGNESIUM 2022-10-01 09:57:[address] [facility] IONIZED CALCIUM 2022-10-01 09:57:[address] [facility] BASIC METABOLIC PANEL (NA, K, CL, CO2, GLUCOSE, BUN, CREATININE, CA) 2022-10-01 09:57:[address] [facility] CBC WITHOUT DIFF 2022-10-01 09:57:[address] [facility] XR CHEST 1 VW 2022-09-30 10:04:[address] [facility] XR CHEST 1 VW 2022-09-30 10:04:[address] [facility] PHOSPHORUS 2022-09-30 09:03:[address] [facility] MAGNESIUM 2022-09-30 09:03:[address] [facility] IONIZED CALCIUM 2022-09-30 09:03:[address] [facility] BASIC METABOLIC PANEL (NA, K, CL, CO2, GLUCOSE, BUN, CREATININE, CA) 2022-09-30 09:03:[address] [facility] LIPID PANEL ([id number])(TOTAL CHOLESTEROL, TRIGLYCERIDES, HDL) 2022-09-30 09:03:00 Hedy Carroll [facility] CBC WITHOUT DIFF 2022-09-30 09:03:[address] [facility] PHOSPHORUS 2022-09-30 09:03:[address] [facility] MAGNESIUM 2022-09-30 09:03:[address] [facility] IONIZED CALCIUM 2022-09-30 09:03:[address] [facility] BASIC METABOLIC PANEL (NA, K, CL, CO2, GLUCOSE, BUN, CREATININE, CA) 2022-09-30 09:03:00 Angelique, [facility] LIPID PANEL ([id number])(TOTAL CHOLESTEROL, TRIGLYCERIDES, HDL) 2022-09-30 09:03:00 Hedy Carroll [facility] CBC WITHOUT DIFF 2022-09-30 09:03:[address] [facility] AC PANEL 20 + LACTIC ACID 2022-09-30 06:23:00 Fo rtichHedy [facility] AC PANEL 20 + LACTIC ACID 2022-09-30 06:23:00 Pam sung [facility] XR CHEST 1 VW 2022-09-29 23:33:[address] [facility] XR CHEST 1 VW 2022-09-29 23:33:[address] [facility] PHOSPHORUS 2022-09-29 23:14:[address] [facility] MAGNESIUM 2022-09-29 23:14:[address] [facility] HEPATIC FUNCTION PANEL ([id number]) (ALB,T.PRO,BILI T,BU/BC,ALT,AST,ALK PHOS) 2022-09-29 23:14:00 Angelique, [facility] BASIC METABOLIC PANEL (NA, K, CL, CO2, GLUCOSE, BUN, CREATININE, CA) 2022-09-29 23:14:00 Angelique, [facility] CBC WITH DIFF 2022-09-29 23:14:[address] [facility] PROTHROMBIN TIME / INR 2022-09-29 23:14:00 Scrug gs, [facility] ACTIVATED PARTIAL THRMPLAS KYLE 2022-09-29 23:14:00 Angelique [facility] FIBRINOGEN 2022-09-29 23:14:[address] [facility] AC PANEL 20 + LACTIC ACID 2022-09-29 23:14:00 Sc ruggs, [facility] PHOSPHORUS 2022-09-29 23:14:00 AngeliqueDomingo steve [place] [facility] MAGNESIUM 2022-09-29 23:14:[address] [facility] HEPATIC FUNCTION PANEL ([id number]) (ALB,T.PRO,BILI T,BU/BC,ALT,AST,ALK PHOS) 2022-09-29 23:14:00 Angelique, [facility] BASIC METABOLIC PANEL (NA, K, CL, CO2, GLUCOSE, BUN, CREATININE, CA) 2022-09-29 23:14:00 Angelique, [facility] CBC WITH DIFF 2022-09-29 23:14:[address] [facility] PROTHROMBIN TIME / INR 2022-09-29 23:14:00 Scrug des, [facility] ACTIVATED PARTIAL THRMPLAS KYLE 2022-09-29 23:14:00 Angelique, [facility] FIBRINOGEN 2022-09-29 23:14:[address] [facility] AC PANEL 20 + LACTIC ACID 2022-09-29 23:14:00 Nate cortés [facility] ABG+COOX+NA+K+GLU+CA2+ 2022-09-29 22:02:00 James Mccall [facility] SURGICAL PATHOLOGY EXAM 2022-09-29 21:41:00 Person, Cathleen yang [facility] ABG+COOX+NA+K+GLU+CA2+ 2022-09-29 20:08:00 James Mccall [facility] ARTERIAL LINE 2022-09-29 18:59:00 Sabas Zhang [facility] INTUBATION 2022-09-29 18:33:00 Sabas [facility] DIAGNOSTIC LAPAROSCOPY 2022-09-29 17:46:00 Person, Merlin carranza [facility] EXPLORATORY LAPAROTOMY 2022-09-29 17:46:00 Person, Merlin carranza [facility] OPEN APPENDECTOMY 2022-09-29 17:46:00 Person, Simba Ellis [facility] RESECTION SMALL INTESTINE 2022-09-29 17:46:00 [facility] 2022-09-29 17:46:00 Person, Merlin [facility] EXPLORATORY LAPAROTOMY 2022-09-29 17:46:00 Person, Merlin [facility] OPEN APPENDECTOMY 2022-09-29 17:46:00 Person, Simba Ellis [facility] RESECTION SMALL INTESTINE 2022-09-29 17:46:00 [facility]BD[facility]EN 1 2022-09-29 15:15:00 Denise [facility] XR ABDOMEN 1 2022-09-29 15:15:00 Denise Sanchez [facility] CT ANGIOGRAM ABDOMEN/PELVIS 2022-09-29 10:05:36 Yadiel [facility] CT ANGIOGRAM ABDOMEN/PELVIS 2022-09-29 10:05:36 Yadiel [facility] XR CHEST 1 2022-09-29 08:58:00 Fortich, [facility] XR KUB 2022-09-29 08:58:00 Fortich, Alena [facility] XR CHEST 1 2022-09-29 08:58:00 Fortich, [facility] XR KUB 2022-09-29 08:58:00 Fortich[facility] 2022-09-29 06:10:[address] [facility] MAGNESIUM 2022-09-29 06:10:[address] [facility] BASIC METABOLIC PANEL (NA, K, CL, CO2, GLUCOSE, BUN, CREATININE, CA) 2022-09-29 06:10:[address] [facility] CBC WITHOUT DIFF 2022-09-29 06:10:[address] [facility] PHOSPHORUS 2022-09-29 06:10:[address] [facility] MAGNESIUM 2022-09-29 06:10:[address] [facility] BASIC METABOLIC PANEL (NA, K, CL, CO2, GLUCOSE, BUN, CREATININE, CA) 2022-09-29 06:10:00 Gerhard Merino [facility] CBC WITHOUT DIFF 2022-09-29 06:10:[address] [facility] URINALYSIS 2022-09-29 06:05:00 Satish Cotto [facility] URINALYSIS 2022-09-29 06:05:00 Satish Cotto [facility] CBC WITHOUT DIFF 2022-09-28 16:22:00 Yadiel [facility] KEKVNG (LEVETIRACETAM) 2022-09-28 16:22:00 Fabian Narayan [facility] CBC WITHOUT DIFF 2022-09-28 16:22:00 Yadiel [facility] KEPPRA (LEVETIRACETAM) 2022-09-28 16:22:00 Fabian Narayan [facility] XR FEMUR 2 VW BILATERAL 2022-09-28 11:43:18 Geoff Cotto [facility] XR KNEE 3 VW BILATERAL 2022-09-28 11:43:18 Shirley Cotto [facility] XR PELVIS <3 VW 2022-09-28 11:43:18 Yadiel [facility] XR SHOULDER <2 VW LEFT 2022-09-28 11:43:18 [facility] FEM[facility] 2 VW BILATERAL 2022-09-28 11:43:18 [facility] KNEE 3 VW BILATERAL 2022-09-28 11:43:18 [facility] PELVIS <3 VW 2022-09-28 11:43:18 Yadiel [facility] XR SHOULDER <2 VW LEFT 2022-09-28 11:43:18 [facility] NECK 2022-09-28 10:53:00 Dixon Cotto i [facility] CT ANGIOGRAM NECK 2022-09-28 10:53:00 Dixon Cotto i [facility] PROTHROMBIN TIME / INR 2022-09-28 10:29:00 James Mccall [facility] ACTIVATED PARTIAL THRMPLAS KYLE 2022-09-28 10:29:00 Cal [facility] HB ABO GROUPING 2022-09-28 10:29:00 Claudy Mccall [facility] PROTHROMBIN TIME / INR 2022-09-28 10:29:00 James Mccall [facility] ACTIVATED PARTIAL THRMPLAS KYLE 2022-09-28 10:29:00 Cal [facility] HB ABO GROUPING 2022-09-28 10:29:00 Cal [facility] TROPONIN I 2022-09-28 07:39:00 Master oBwen [facility] COMP. METABOLIC PANEL ([id number]) 2022-09-28 07:39:00 Master Bowen [facility] CBC WITH DIFF 2022-09-28 07:39:00 Master Bowen [facility] PROTHROMBIN TIME / INR 2022-09-28 07:39:00 Peng Bowen [facility] ACTIVATED PARTIAL THRMPLAS KYLE 2022-09-28 07:39:00 Master Bowen [facility] HB ABO GROUPING 2022-09-28 07:39:00 [facility] 2022-09-28 07:39:00 Master Bowen [facility] EMERGENCY DEPARTMENT DOCUMENTS 2022-09-28 05:01:00 Doctor Unassigned, [place] [facility] HOSPITAL ADMISSION 2022-09-28 05:01:00 Doctor Un assigned, [place] [facility] AUTHORIZATION FOR RELEASE OF PHI 2021-12-02 05:01:00 Doctor Unassigned, [place] [facility] AUTHORIZATION FOR RELEASE OF PHI 2021-11-18 05:01:00 Doctor Unassigned, [place] [facility] INSURANCE CORRESPONDENCE 2021-11-04 05:01:00 Doc tor Unassigned, [place] [facility] AUTHORIZATION FOR RELEASE OF PHI 2021-10-06 05:01:00 Doctor Unassigned, [place] [facility] AUTHORIZATION FOR RELEASE OF PHI 2021-08-27 05:01:00 Doctor Unassigned, [place] [facility] ASSIGNMENT OF BENEFITS 2020-10-02 20:27:08 Docto r Unassigned, [place] [facility] Encounters Start Date/Time End Date/Time Encounter Type Admission Type Attending [facility] Facility Care Department Encounter ID Source 2023-02-16 08:44:25 2023-02-16 23:59:00 Hospital Encounter Srini Peters [facility] 1.2.840.114 350.1.13.10 4.2.7.2.686 [id number] [facility] 2023-02-16 08:40:00 2023-02-16 10:34:58 Outpatient R [facility]INI [facility] [id number] [facility] 2023-02-16 08:40:00 2023-02-16 09:00:00 Office Visit Srini Peters [facility] 1.2.840.114 350.1.13.10 4.2.7.2.686 [id number] [facility] 2022-12-29 10:00:00 2022-12-29 10:00:00 Outpatient R [facility] [id number] [facility] 2022-11-28 14:15:00 2022-11-28 14:45:00 Office Visit Brian Gudino [facility] .2.840.114 350.1.13.10 4.2.7.2.686 [id number] [facility] 2022-11-28 14:15:00 2022-11-28 14:15:00 Outpatient R BRIAN [facility] [id number] [facility] 2022-11-17 10:04:29 2022-11-17 23:59:00 Outpatient R [facility] [id number] [facility] 2022-11-17 10:04:29 2022-11-17 23:59:00 Hospital Encounter Srini Peters [facility] 1.2.840.114 350.1.13.10 4.2.7.2.686 [id number] [facility] 2022-11-17 10:00:00 2022-11-17 16:55:56 Office Visit Srini Peters [facility] 1.2.840.114 350.1.13.10 4.2.7.2.686 [id number] [facility] 2022-11-17 00:00:00 2022-11-17 00:00:00 Letter (Out) Srini Peters [facility] 1.2.840.114 350.1.13.10 4.2.7.2.686 [id number] [facility] 2022-10-27 09:38:55 2022-10-27 23:59:00 Outpatient R [facility] [id number] [facility] 2022-10-27 09:38:55 2022-10-27 23:59:00 Hospital Encounter Srini Peters [facility] 1.2.840.114 350.1.13.10 4.2.7.2.686 [id number] [facility] 2022-10-27 10:00:00 2022-10-27 11:05:55 Office Visit Srini Peters [facility] 1.2.840.114 350.1.13.10 4.2.7.2.686 [id number] [facility] 2022-10-18 14:30:00 2022-10-18 14:45:00 Office Visit Service/Gen surg, Surgery C Person, [facility] 1.2.840.114 350.1.13.10 4.2.7.2.686 [id number] [facility] 2022-10-18 14:30:00 2022-10-18 14:30:00 Outpatient R SIMBA [facility] [id number] [facility] 2022-10-18 00:00:00 2022-10-18 00:00:00 Orders Only Doctor Unassigned, Bogue Chitto [facility] 1.2.840.114 350.1.13.10 4.2.7.2.686 [id number] [facility] 2022-10-11 00:00:00 2022-10-11 00:00:00 Transition of Care Alison Toney TRISHA [facility] 1.2.840.114 350.1.13.10 4.2.7.2.686 [id number] [facility] 2022-09-28 05:21:00 2022-10-09 18:31:00 Hospital Encounter Cal, Karina De La Rosa [facility] 1.2.840.114 350.1.13.10 4.2.7.2.686 [id number] [facility] 2022-09-29 13:06:00 2022-09-29 18:20:00 Anesthesia Event Sabas Zhang Daniel [facility] 1.2.840.114 350.1.13.10 4.2.7.2.686 [id number] [facility] 2022-09-29 11:40:00 2022-09-29 13:27:00 Surgery Person, [facility] 1.2.840.114 350.1.13.10 4.2.7.2.686 [id number] [facility] 2022-09-28 02:26:00 2022-09-28 04:30:00 Emergency Master Bowen [facility] 1.2.840.114 350.1.13.10 4.2.7.2.686 [id number] [facility] 2022-09-28 02:26:00 2022-09-28 04:30:00 Emergency X MASTER BOWEN [facility] E[facility] [id number] [facility] 2022-09-28 02:26:00 2022-09-28 04:30:00 Emergency X MASTER BOWEN [facility] [id number] [facility] 2021-12-02 00:00:00 2021-12-02 00:00:00 Orders Only Doctor Unassigned, [place] [facility] 1.2.840.114 350.1.13.10 4.2.7.2.686 [id number] [facility] 2021-11-18 00:00:00 2021-11-18 00:00:00 Orders Only Doctor Unassigned, [place] [facility] 1.2.840.114 350.1.13.10 4.2.7.2.686 [id number] [facility] 2021-11-04 00:00:00 2021-11-04 00:00:00 Orders Only Doctor Unassigned, B[place] Ch[place] [facility] 1.2.840.114 350.1.13.10 4.2.7.2.686 [id number] [facility] 2021-10-06 00:00:00 2021-10-06 00:00:00 Orders Only Doctor Unassigned, Bogue Chitto [facility] 1.2.840.114 350.1.13.10 4.2.7.2.686 [id number] [facility] 2021-08-27 00:00:00 2021-08-27 00:00:00 Orders Only Doctor Unassigned, Bogue Chitto [facility] 1.2.840.114 350.1.13.10 4.2.7.2.686 [id number] [facility] 2021-07-19 00:00:00 2021-07-19 00:00:00 Telephone MulugetaTc allen [facility] 1.2840.114 350.1.13.10 4.2.7.2.686 [id number] [facility] 2020-10-02 16:00:00 2020-10-02 16:00:00 Outpatient R TC [facility] [id number] [facility] 2020-10-02 15:28:34 2020-10-02 15:43:34 Office Visit DenisaTc [facility] 1.0.114 350.1.13.10 4.2.7.2.686 [id number] [facility] 2020-10-02 00:00:00 2020-10-02 00:00:00 Orders Only Doctor Unassigned, Bogue Chitto [facility] 1.2840.114 350.1.13.10 4.2.7.2.686 [id number] [facility] 2019-11-04 00:00:00 2019-11-04 00:00:00 Telephone DenisaTc [facility] 1..114 350.1.13.10 4.2.7.2.686 [id number] 2019-11-04 00:00:00 2019-11-04 00:00:00 Telephone DenisaTc [facility] 1..114 350.1.13.10 4.2.7.2.686 [id number] [facility] 2019-08-09 16:15:00 2019-08-09 16:15:00 Outpatient R TC [facility] [id number] [facility] 2019-08-09 08:08:51 2019-08-09 08:38:51 Telemedici ne [facility] 1.2.840.114 350.1.13.10 4.2.7.2.686 [id number] 2019-08-09 08:08:51 2019-08-09 08:38:51 Telemedici ne Visit Tc Arias [facility] Building 1.2.840.114 350.1.13.10 4.2.7.2.686 [id number] [facility] Results Test Description Test Time Test Comments Results Result Co mments Source [facility] (NA, K, CL, CO2, GLUCOSE, BUN, CREATININE, CA)2022-10-09 10:52:53* Test Item Value Reference Range Interpretation Comme nts NA (test code = 4518950432) 137 mmol/L 135-145 K (test code = 0504133888) 3.7 mmol/L 3.5-5.0 CL (test code = 9969201528) 99 mmol/L 98-108 CO2 TOTAL (test code = 5409858937) 25 mmol/L 23-31 AGAP (test code = 2264358665) 13 2-16 BUN (test code = 2352492115) 8 mg/dL 7-23 GLUCOSE (test code = 0662694838) 100 mg/dL 70-110 CREATININE (test code = 7243154807) 0.65 mg/dL 0.60-1.25 CALCIUM (test code = 8444924149) 8.9 mg/dL 8.6-10.6 eGFR (test code = 9012549614) 152.2 mL/min/1.73m2 ROLAND (test code = ROLAND) Association of Glomerular Filtration Rate (GFR) and Staging of Kidney Disease* + + +- +| GFR (mL/min/1.73 m2) ?| With Kidney Damage ?| ?Without Kidney Damage+ ------+ ----+ ------+| ?>90 ?| ?Stage one ?| ? Normal ?+ -+ + -+| ?60-89 ?| ?Stage two ?| ? Decreased GFR ? + + +- +| ?30-59 ?| ?Stage three ?| ? Stage three ? + + +- +| ?15-29 ?| ?Stage four ? | ? Stage four ?+ -+ + -+| ?<15 (or dialysis) ? ?| ?Stage five ? | ? Stage five ?+ -+ + -+ *Each stage assumes the associated GFR level has been in effect for at least three months. ?Stages 1 to 5, with or without kidney disease, indicate chronic kidney disease. Notes: Determination of stages one and two (with eGFR >59mL/min/1.73 m2) requires estimation of kidney damage for at least three months as defined by structural or functional abnormalities of the kidney, manifested by either:Pathological abnormalities or Markers of kidney damage (including abnormalities in the composition of the blood or urine or abnormalities in imaging tests). [facility] 10:52:53* Test Item Value Reference Range Interpretation Comme nts MAGNESIUM (test code = 3942713815) 1.9 mg/dL 1.7-2.4 Lab Interpretation (test cod e = 08577-9) Normal [facility] 10:52:53* Test Item Value Reference Range Interpretation Comme nts PHOSPHORUS (test code = 6623340300) 4.3 mg/dL 2.5-5.0 Lab Interpretation (test cod e = 97674-6) Normal [facility] (NA, K, CL, CO2, GLUCOSE, BUN, CREATININE, CA)2022-10-07 11:43:58* Test Item Value Reference Range Interpretation Comme nts NA (test code = 4729779775) 133 mmol/L 135-145 L K (test code = 4712732617) 4.1 mmol/L 3.5-5.0 CL (test code = 9922171706) 101 mmol/L 98-108 CO2 TOTAL (test code = 2782820025) 25 mmol/L 23-31 AGAP (test code = 8970828018) 7 2-16 BUN (test code = 6459133108) 7 mg/dL 7-23 GLUCOSE (test code = 0096449668) 103 mg/dL 70-110 CREATININE (test code = 3926816309) 0.70 mg/dL 0.60-1.25 CALCIUM (test code = 1534440587) 8.7 mg/dL 8.6-10.6 eGFR (test code = 9209434828) 139.8 mL/min/1.73m2 ROLAND (test code = ROLAND) Association of Glomerular Filtration Rate (GFR) and Staging of Kidney Disease* + --+ --+ ------+| GFR (mL/min/1.73 m2) ?| With Kidney Damage ?| ?Without Kidney Damage+ --------+ --------+ +| ?>90 ?| ?Stage one ?| ? Normal ?+ ---+ ---+ -------+| ?60-89 ?| ?Stage two ?| ? Decreased GFR ? + --+ --+ ------+| ?30-59 ?| ?Stage three ?| ? Stage three ? + --+ --+ ------+| ?15-29 ?| ?Stage four ? | ? Stage four ?+ ---+ ---+ -------+| ?<15 (or dialysis) ? ?| ?Stage five ? | ? Stage five ?+ ---+ ---+ -------+ *Each stage assumes the associated GFR level has been in effect for at least three months. ?Stages 1 to 5, with or without kidney disease, indicate chronic kidney disease. Notes: Determination of stages one and two (with eGFR >59mL/min/1.73 m2) requires estimation of kidney damage for at least three months as defined by structural or functional abnormalities of the kidney, manifested by either:Pathological abnormalities or Markers of kidney damage (including abnormalities in the composition of the blood or urine or abnormalities in imaging tests). Lab Interpretation (test code = 30759-7) Abnormal [facility] WITH [id number] 11:21:47* Test Item Value Reference Range Interpretation Comme nts WBC (test code = 6690-2) 8.66 See_Comment [Automated messa ge] The system which generated this result transmitted reference range: 4.20 - 10.70 10*3/?L. The reference range was not used to interpret this result as normal/abnormal. RBC (test code = 789-8) 3.92 See_Comment L [Automated messa ge] The system which generated this result transmitted reference range: 4.26 - 5.52 10*6/?L. The reference range was not used to interpret this result as normal/abnormal. HGB (test code = 718-7) 10.9 g/dL 12.2-16.4 L HCT (test code = 4544-3) 33.4 % 38.4-49.3 L MCV (test code = 787-2) 85.2 fL 81.7-95.6 MCH (test code = 785-6) 27.8 pg 26.1-32.7 MCHC (test code = 786-4) 32.6 g/dL 31.2-35.0 RDW-SD (test code = 01900-9) 44.0 fL 38.5-51.6 RDW-CV (test code = 788-0) 14.3 % 12.1-15.4 PLT (test code = 777-3) 389 See_Comment H [Automated [facility] [employer]] The system which generated this result transmitted reference range: 150 - 328 10*3/?L. The reference range was not used to interpret this result as normal/abnormal. MPV (test code = 07046-7) 10.0 fL 9.8-13.0 NRBC/100 WBC (test code = 6771021583) 0.0 See_Comment [Automated [employer] ssage] The system which generated this result transmitted reference range: 0.0 - 10.0 /100 WBCs. The reference range was not used to interpret this result as normal/abnormal. NRBC x10^3 (test code = 6751639643) See_Comment [Automated [facility] [employer]] The system which generated this result transmitted reference range: 10*3/?L. The reference range was not used to interpret this result as normal/abnormal. GRAN MAT (NEUT) % (test code = 770-8) 65.2 % IMM GRAN % (test code = 9884602188) 4.50 % LYMPH % (test code = 736-9) 19.3 % MONO % (test code = 5905-5) 7.4 % EOS % (test code = 713-8) 3.1 % BASO % (test code = 706-2) 0.5 % GRAN MAT x10^3(ANC) (test code = 2008569700) 5.65 10*3/uL 1.99-6.95 IMM GRAN x10^3 (test code = 6252947085) 0.39 10*3/uL 0.00-0.06 H LYMPH x10^3 (test code = 731-0) 1.67 10*3/uL 1.09-3.23 MONO x10^3 (test code = 742-7) 0.64 10*3/uL 0.36-1.02 EOS x10^3 (test code = 711-2) 0.27 10*3/uL 0.06-0.53 BASO x10^3 (test code = 704-7) 0.04 10*3/uL 0.01-0.09 REACT LYMPHS (test code = 5743999718) Rare Lab Interpretation (test code = 43346-4) [facility]normal [facility]:13:14* Test Item Value Reference Range Interpretation Comme nts MAGNESIUM (test code = 5945276787) 1.9 mg/dL 1.7-2.4 Lab Interpretation (test cod e = 01184-1) Normal [facility] 11:13:14* Test Item Value Reference Range Interpretation Comme nts PHOSPHORUS (test code = 4549910584) 4.1 mg/dL 2.5-5.0 Lab Interpretation (test cod e = 48803-5) Normal [facility] [id number] 19:15:08* Test Item Value Reference Range Interpretation Comme nts Case Report (test code = 9823920632) Surgical Pathology ?Case: [id number] ? Authorizing Provider: ?Person, MD Simba ? Collected: ? 09/29/2022 1641 ?Ordering Location: ? ? [facility] OR ? Received: ?09/30/2022 1012 ? Department ? Pathologist: ? Mir, Ping, ? Specimens: ? A) - SMALL INTESTINE, Small Bowel ? B) - APPENDIX ? Final Diagnosis (test code = 0974035884) [id number] FuZzEwMzNcZnRuYmpcdWMx IHtccnRmMVxlcGljMTAyMD clNU8fzDsddWz9iRojCBQo cgX3xLSyIQvav9xpGFJ6i8 hrmgzkNECsSSlfMr5vaGXx hOvjDsYxRJUtRIf4nN52BV GreW9uaFLyLWl5OIXvaYNi rjIwKbBfPARgkWVerIK5YJ EpXU7jcsflDRnoIEeuUXCf mbA2AEBwoQIxA6YkFFJvYK 8ewfhdIEI8XHfvVIByAQZ2 ZtAzNWKim9Lqtgo9OuVcnF FyZFxwbGFpblxmczIwXHBh ciBBLiBTTUFMTCBJTlRFU1 MULuSyNLJVC70BRoAGSOJE MSCWD7WZM413VTHtrkLrHE AhTKNBYAwDNQ3AEB5VQRSZ QUxMIElOVEVTVElOQUwgVE rAS7BZRRhEONauAzOMWy4G JXSbHFgDXG6AEjwRG0BgPC BWZU4LTXWEHKgcVKAQUPLh OOFygoTuLLAxTDKaTB9DLZ YGHKNHFN4QMMROEuQiYBSQ UKIqJ4WPC0YICDyAIYWfup SjGUZoMZYOACIBA1XFG55b AKAUO7nDBrSWQSQRNAMcaW FyXGZzMjJccGFyXGZzMjAg Hf7sRUBDVQ2MWKueKFIEJP SJRNDQJU0IEEgpaHAnBSLn ICAtIEJFTklHTiBBUFBFTk JPZQIYRMAPISIlL0kZBYIY C1NIBPIWUAWQF0dBYHPtIV BhclxwYXJccGFyfXtccnRm RRpth3TfH9XeKxJwLOzfgp NpXGRlZmxhbmcxMDMzXGZ0 bmJqXHVjMVxkZWZmMHtcZm 3qqHWcyDslRfMcLMRaf1xh fsESQCwlVmIuE334XCWeLZ kiz5zth6DpJMRraJGvg1W8 EETFjonrvTg3o0qtOeDrDy Q1rEWtAFakN2rdbxQtwOJa U2QgxPSzfIh0hVcdF63ov0 U2DcubH4glCXFjXNNnL5Hm CN1tSUMwPai8UPB7XYE3BH IlKDRkZ7ZiSN3kEOOdvTSl KYu8y6ywuSytICFpBIY6m1 iiJJkbkhA7WZ9yjc9hbCh7 w8uillVkNPOcJRYwdTFPZZ BtA5TxrWivKs0srWa1zYqu JuquQRE2Ioa0LR4hoa39pf k5oHyjGKNccrnsUaF5PTms BADiyxuhNXm0PKstERNpaM G2NNMkcCUfV8MyEZNpFW2h dao8DPJ6VLowBRLnTfF7AN NwqFKvBTUygLhpBAqdh751 MTJ1GkNqZA2rD5Ykn5Z4kI 9maXRcZGVmdGFiNzIwXGZv oq1vyDXlNGdzn6WaDTW8ya U5yFCuwRVvHPJiBH16Hrse t2PoYavsJYG3REOsapLcj2 Rrd1lnHpNpxwLwZ7wjH9Xp ZHJoZWFkXHBnYnJkcmZvb3 Npe0QeyGPtfQx0y5ivUDRp VDAnaCexd2yjGRX6DENxP2 D5oGEni1ljVHxhGRJpuQD6 drH0VGUdwQVkG1IeeX4fYA MuQU6sdgw2a0vyWSG1LGaq LPXnJnU6enC0TJXkoNFpOK IqfKdeLXfkd752TVG9OyPh HNOzq7WhJ3HtyUblU83btG ngG53qMGVqaRnsvF3pvQxl zG2xVcYnSyEmBZqzoIaymD FpblxmMVxmczIwXGxhbmcx SQItWIgzB5euVpEjXUUqgX nvWKrvt1DeMFRkLZIxIewa czIwXHBhciBJIGhhdmUgcG Jrj39vCCrrtOWeJGJyHSaw QDDxdTylb5VtZ3tsWM5wW7 NsaWRlcyBhbmQgYWdyZWUg a4o8gBAbaNdhr9UpeMQlNG 04heMfIAQcIQN9DFDeq3em XY48btysNtPzqY26lsFrdy OdBBGfd2ogD3swnYWxu1Wv o5JpngYbKCicg3BaLJ6npC YmxwbfuMT9ZMNpfRAbdqCr shJ9eQieQXNolL0fyE1hiD wrnL0sDjVgZuFqFVrjAA5o MVPqS7iuqSMmCQCsVTCbC0 bqAmYlzF4zsImuZwbniwA8 XCZsvc53 Clinical Information (test code = [id number]) Trauma [T14.90XA] Gross Description (test code = [id number]) w8aysDHdMRXynNQILGIzSR QyXU6pdGkqjGy6dDyhXQPo tdO3oXPnBAcup5yqVZZ4q4 rehgDFHhzzRUBaZP8iEHcj IPSzIW6yCgKzNOSuUmZiCL BhcGVydzEyMjQwXHBhcGVy qBN4UYGwPW0bxapsGKavSQ woHVUakpO2CXHwzEMqM5Ir WYIiJL5tynapGMS4SWJOYq lmWp7ycROwsSowCeRmDnIo YXJzZXQwXGZuaWwgQXJpYW y9tJ0ZKfdqPDB4GXACYzbe HsawuZzyy0JfrXJlZOQtBV xcaWQgNTEwMDAgXFxkYiBP EjExNwF9LYX7CIiePvC2OO i8TAKIKNCyYreiYSC0UfI4 UFa8WRFaGM3jNWukeURgXO sfVcjiEYjmC557IHvmBHTr F7ErQ8HwTDtlWmPrKWtoOY AeTIBoEGodXVMpS9CFSTTe Sqf3BcU7WjRiAMz7GLhaK3 JFRIZmWWJoMGY8Dhg0AcJ3 JCw5GMSFUr1nHWg6ZWLhBx O0LQN8UOq6DbImLMVsToMh SGRhOOJvUDhcdREeRM9fcS bwIAIyYU9TFYLkOMehOWWx MuAnF7NXX2qJZR8oFIpuEG IgDQpccGFyZCANClxwbGFp dnwyftRnQOh8grHpHGRhSr BrRRJnP74wd9BCv4WwSA1G PHv5lvLgohnyyZ9qJMFkny VtFSoPpMFqwO2tpjXLPOqk EQGvR4HmwiBaLXicXNXddz 9ugZqjKGlsBfRkYVIkz6m0 pWT3pYQadFO7zWXsvFykJL 5jlBFgRVVJBV05hEEmqiAj QDWkKIgqAUSaz0ZwFrqlOX 0dIRKqnzYru0FpQD6iNZVp RJQyo9JhNM23TTGcq7TwhB NxtMZmZiEbeKDzuECtq2pd bCAoMzAuMCBjbSBpbiBsZW 3fbQvihYXhRaBkPr57BEHi NCnfHWRcDE2vkKHnUVV9xJ HhQFO3PEUbZACzgoNmBUV0 aO6pFW2yithhwgBac33fSX KytQZddhVcPTPBeDUcl5Sb n1LhRO19UZBbxWmgVgM1wD KwtGhvBXwzQAMfyzQlg09u s9ItoSmfHVIfGUYooTYvZX pnSXbcIHkwN7LoDW4hPVDu e6luQU3zAJCmV6SwmEkcbY Fuj5SfuNHinQRdVI5nXGAb DSRoTYsbLZRyt4kkyiNcXC ZoKCGbHOTna71ss5w4pWOh lWepwMKxc0YvtMO9aWJrdm L7mcA7NO1pfOnppuTztK4i jTbbg5Jah2NbGWY0MT5xJV MwbcVvGV3cKTBtbu1zqXHq sXSqd50gw2UzRFJijc5hFN YkzNW2nKXbk8Dah8EfbJUr QQ4yKzGzMWyxKXT8r7e8AI Eink2qWYXdLKDrdLQjsdJq HzQqC91nYaGcaOQxweOnkj XrPLK6bM6aXU6phthyfiCj sjHgFp9yBUYoRIXto04ycX vnXU2cvF7yqPHzPKUyr4El mBrmmlSuKQQadW8dXLQFfV Mdx7AdO8ovGT2mkMOrf0Iw bmVkIHRvIHJldmVhbCBhIG 9iKGZuBZRrJXMlo0BtcQIy FwO3TO5nFlGfn50mpUnqjP uaHXVeL0ImCH8aaGXssZSe LjYuXGutXJ01D05rHLL7fy Imnst3gY8cOAKkHBUunEOc oOJoZUTrc5PtmXRrZ7ElXI 2oHbNye26fo09rxOSgazCd meNwmu62nAXnTHFTlHLkj7 Trd9EyTVNhNEMioWqhajwd dNneMRWuve4ukWFckEFjjL Gxp7JhUVfpHM7raAOfTMJk dGFuLWdyZWVuIHRvIHRhbi 4sMTVjIV7yNCQmtPstfSf5 QKSmXF2kuI88anOtzbMpmC djXA93H76vEWU9mrKmfcx8 iU4uXVMzLHX5OV5ncTzsrm MdjKLko1GguROunWNkPLWj kfrbBP6oYIMiVN7fcO33bj 3bBT6cTEYixhJdfsX1bB2c rjuqxr3laXuokkxxh9OakD 3cwTJrUAOqCNKjnh5om5v5 AGukTK12bJZoQSFjCXLmdA JbST6AL9HmAATsjTFuyN5r cAyqYCWhslFhwT3oohNpcd RzCTAaqvIaq97mf4BcwZNe FMMfyrxoCx03RCjccNumj1 QxJFo0AvIwrIEpSwCyhCMo AtPsI04rQRipyHdvtEEilT wteDQkm6XmsUlqKRejzoJk LiAgXHBhciANClJlcHJlc2 QylRS3lBFvCBKxH4Lbc67d CDKmPCCfbYLocPK8CLZrhQ 4gQTEtQTQuXHBhciANClxw BQIpJRiLHFX6jP9tSKGuLZ Y5WHVhucMIWcKxNcMCOSMf Q5Izi42nxQXcY3jgPXTit4 Hgp5IejP3uQQTvo0ljd0Jn b6AlKOC3bOZoHRSlct2adW XdmEPyj8Ywa3IyDDPekxDy YWNlLCBlbnRpcmVseVxwYX EwITwEUpppD9Vcu4AbhERa pkSmVWK9sX6zAR2gekcpjx wzGZ6yRqZdGAyla1z3wPI3 MP2laUzzogPoXFKmo1EcUH EswAebSBe2ECVozqBWHdOy VhXFyBTsiVL4oiN5KX0lgS BswHxjNAUwdh5kVEuqqyPx esVgUP72BQHrxjSqXRHnbz ZATeH6UaWJqHAgoDL1guZ5 JE8rpSecpdPfCCXgl8ZfXR WihYGgv9OhoYB8dBZoGZJf zuRGSnO9VcKSeOFfrRRmDS Yki6BuXnTruzWePPUsIIZy ZYIwugXzgDe7WEdeVWRjUB urg2WyVIfgnTftCRNlDfWd RAyEBrafU3YiOPFnvVXdeG 5mnIvgfzPtWpFrp0szlYE0 yBGzhHWzUTQduUWat5GrqG M4lRSpGUaxYHGtR70tp5XP h0Xry3difVgdh4RxbHItUQ 8raEDcXX0Gw0tqHMSlhSMp WIW9MIwiu3gjIVpvOTP8LN EdZcSaGLVhYI0VBmSyXRl8 GYXbYBVsENo2QHy1FE9EOg YgCFEcJyk1SITsDMVqCAa4 TUvcGB9CGTJ3TMTwPrt9As MsIOA2UxTuNXl4NPTvJKgj quTkXThtForaXTjvS13taV FyZFxzYjEwNVxlcGljWHNi AMJ7IY0XKCBmTkLsU3YAV4 yTOC4vIwzeBPWcWRzpfVFh ZCANClxwbGFpblxsdHJjaF jqcuHgESYaLzFzNRUmD41l g1YGw5MgCZ9HQJs0qbUzln yipU6iNBBpqmBqk5GxYAja cGljWHNiMzAgDQpTcGVjaW 2ddqNTLHpoRCLrT8CrvfAd VSsoZVVgkz1ikPovVXpvUq NkQKByd0p5fVO1iEPlrQT2 kFZlnVlaZO9ssXRaAENVFS 65vWNpfdRhPIObGY8ffTfa OHIyouYuF67ae6fddYRjq2 ZkQQ6urM48XDG7SLB7JSRj qUGhsy5wTOSmVO9lbTivGI WsKUFvuHTwbyCiTC8lrDpi LyqmCS91BBXnKXUenMKkzr YkzJOtNQNeahrnt0k7hCWr tVHmV2pyUHQoWCFvNKMbVE 9otRvbGZ1rZVZhv1UpsPjd IDUvULQpE6Srl46ehMCyS3 zfNiHHoDWyb9Ezh1QeEGbs PIFaud2ddX7cVEKqxT4ecR spiW0hsvTnU9MwQKGpDEIk j8YqfAt3YYjdpS4acnxlY7 zyUgNXiRYap7JpC4zzHW0y uYDmz6RcdKCvtRffx3ShgZ lvbmVkIHRvIHJldmVhbCB0 TG2dbWlsorKwsMTya3VcSu PuLDSoUC1zZUNrdVLeEE1k hvRcH0wnIoKdax8pAYVrLQ I1dzGgBwYeG39reM8tGCnh oMU0QBOihTsxyOEef639AB movoNuEH8isuvvTOkpMF9r eE58NA2vZTeqzT7fbmsoN5 umBM4haQEtfXPdUsRKtoMm JTBig1HbmXgaddUbOGLgPA arg3OrsQilrURbllUlZvmw BO9fV0RyjKikjuQfvM7jgR 9xzSOhBQU8kLDjRY4cQmLh OGJwJXHzT1Upp11tpINnB1 luIChpbmtlZCBibHVlKSwg pyQyfzSiUW23KEQindFlQ4 Nxl1Ccl2TnpEbmkuJwMBGa UZMooNZuP3BiUDF6wXDxGP EaCUK1Ya9baHLuEWJnvmIB RL1ynBVuRJ0AZEStGNrgnW ljWHNiMCANClxwYXIgDQpc f3MwFUmmlWemXCFaNoRdKG kCQBD0PAXxlbWawSncWHNJ QSAoQVNDUCkNClxlcGljTm ZjkLKgIhR3SJJeuRPnKWT1 MQ9bxMwuZVNzJ9PjI7Pyyy I7RDZwskDFXzuwEMJoJB5K fQ== Disclaimer (test code = 7993445039) n2ibyNKwOMOxi7akANJkvA FuZzEwMzNcZnRuYmpcdWMx BEpldzMcECmek8ArK5StBz AwMFxhbnNpXGRlZmxhbmcx XKJeXPT3uwWiCLNzWUfoLO JgJBrnQa5noOIgoPnlKoJp JVEbs5jtveEXZNprXdTaL7 00DCYwKBzsd5xbd7CnYYPd tUFxd3E5NVKKxiindJd5mZ giA27eu2G1ZpaqL7aaTIJu YHTnT5IuZL5yANWxHjk7PV Z2WQL8NFKuQJStI6VeXT6m AFYkgWNaQJs8x8gkhUesLO RqXHG7h4xlOVtocsNnKC7o sw2juKe3q0ljzrRwSLBmDF JehLBJAHHxU8PjoIwySm0i xMq6mXqbXjtjEGT3Fgd7GE 8tmg88pjb2tCddJXEaymdp NjG0HRtxMCRiranqTPt3UH rzMUGkgZG7FPQimQLhX2Ug RSXrFS0phfu8FAE9WUfqPE PjLkF9JVCzfVQtXIUkqFnn MZnnr377RTJ3NkEtSO7fM0 Cwv8O4oB3ybKPrMEXrmOGd CjMvBWCcoe4gmYKwYXgux1 HnATS1fkF0wPVlsLCkFAWk RF27Sbtam6PcDvuxc6QpR3 5ckFS0TXdle4rfGI4rZtT3 dhGrEXuyl0ldlN3tQwX2WF vyRI0tYD3xFLEnkQ2vsppz XHBnYnJkcmhlYWRccGdicm FjLa0enZnbIDW9CEakT8de lZ7xVrF4HCvpS2yaiI9oCI w9MZyzmNK8XOCekM2zPF3u mtiqy8gcUMkdGXjvCREeuj S1jmU1WJWjeJCoE3HtoZ1c JDUwDY2ymtbyq3goPUQ3IQ xvHQDmTHY1OuStFCPia5Cq lov1JxPdl3NurTXxHNsfB4 9of840DFLhcaVgP8owsIXv zuzryRFzkqnsUPocgfS2RZ VpprZte3IbATHrUOV8TNic DWpmpJVrGNGtoItou7miP2 RscGFyXHBsYWluXGYxXGZz MjBcbGFuZzEwMzNcaGljaF ffUPhbAtArLOSvBUodW3mn QhEbV3PsGGRfVnTtgNRkS5 ggVGhpcyByZXBvcnQgbWF5 PMglO0z2PWKcqgMtzGe5cc XwEdEbNHLnSRY4BBbxlRIa AKXql4LugytntJGxQg1fiB CuVSEhuB9pZRSyELJoWBcb DA3uiBp2DLWTkJCksDIwQq PJUHHwJI43bcNzLIGYiojx d1B9BPjpBYLrm6KyrZRxI9 uad1QlRWLql43iOJ2tu8H5 l4ebYCN0VC3uf7LgBTMxlR QqyLBbJPUbs1Kziqbgp3Px LRVbjwQyz7MmJDLsqcObeK FeCQQttjYnvn5aicHaDCTg IHDnF0JxabouoPdtliMqCB Ewxz9mvyRtACE2YHTRWNSl ZINkt0MbwV4kuRXMAZS4cV Jwpy4egfLYoYRmIRRica70 QYXsWO1uF6soBULkZSPisz HjoLPdg7ZsIVPeaKX2rJGt ID6XUvGJj37pEPIiXNGSar UgEWOevCyfwNW5onD7fL0v IChGREEpLlx+IFRoZSBGRE HhAA0khuGau7UdcaAdbIvk UPVqtKFyq9YztGLas1UspK don8DybPAvwQHdWG4iDLNt clxwYXIgVVRNQiBMYWJvcm A7s2GlCHArUFNoMTX3hVal sko0EQTyqO5wSUXlB0tlho keBPelBFJxz8FbnL7vmXTH gUXao0OekEUjpREAjHNwQB 8ntyAhZEuARTiGBZC3kfRs YJCki0VkXWofV2thG38gcJ yoyJy3pTA6VFX2hI1nUnh+ IFxwYXJccGFyIEFwcHJvcH UtJKIwaXeqnaIiT0ZudmDj dR8owXJkwsSfKM2xTH5fO2 F0bEDiGTEaanFnr5tjPQpi dmUgYmVlbiByZXZpZXdlZC Nup6FoAIsxTBF2IDehjnFg bmNsdWRpbmcgSCZFLCBTcG GqoXSnBFF6CUusopKthpTp MN3hlL6urAfrkR3pwJYcqC V3wskvMNTfMPUxfWduJVMp KJ6oaZLaNXGmrgYWvWwowK IxsW6cP3RwNQRcDOExtb8u QHRlyE6uTNupn7CxuhioQN LuBKRiNDAxszTvyz6qRZYo pEBEAB1KWWdxrQAgx8Yvof MqI6qCOVW6WLJiVjGrLgdv WYJgdRZrcEDoFESijb57YF WydY1uzEmgCIGwdV8uwE4d kNvseX6dYxQwOsOoKNadAK 9iMFEcU6kpfXZlOGRvOPJs B0oqPwNlxE9poGneEOnaFw BbLgWsCDlpEVG5oW== Embedded Images (test code = 7108408068) [facility] 00:30:45* Test Item Value Reference Range Interpretation Comme nts PH (test code = 2) 7.41 7.35-7.45 PCO2 (test code = 9590804438) 37 See_Comment [Automated messa ge] The system which generated this result transmitted reference range: 35 - 45 mmHg. The reference range was not used to interpret this result as normal/abnormal. PO2 (test code = 6776557144) 113 See_Comment H [Automated messa ge] The system which generated this result transmitted reference range: 80 - 100 mmHg. The reference range was not used to interpret this result as normal/abnormal. HCO3 (test code = 8823636506) 23 See_Comment [Automated messa ge] The system which generated this result transmitted reference range: 22 - 26 mEq/L. The reference range was not used to interpret this result as normal/abnormal. BE (test code = 2079438896) -1.2 See_Comment [Automated messa ge] The system which generated this result transmitted reference range: -3.0 - 3.0 mEq/L. The reference range was not used to interpret this result as normal/abnormal. THB (test code = 8112663903) 13.8 g/dL 13.5-18.0 %O2HB (test code = 0208408708) 96.7 % 94.0-99.0 %COHB ART (test code = 1225713408) 1.3 % 0.0-1.5 %METHB ART (test code = 0546563644) 0.6 % 0.4-1.5 VOL%O2 ART (test code = 2095850946) 18.9 % 15.0-23.0 QUES NA (test code = 0359519845) 132 mmol/L 135-145 L K+ (test code = 8743597754) 4.0 mmol/L 3.5-5.0 AC CA IONZ (test code = 1737075054) 4.60 mg/dL 4.50-5.30 GLUCOSE (test code = 8582751512) 156 mg/dL 70-110 H Lab Interpretation (test code = 76500-7) [facility]CA2[facility]2022-10-02 23:30:58* Test Item Value Reference Range Interpretation Comme nts PH (test code = 2) 7.43 7.35-7.45 PCO2 (test code = 1991550233) 39 See_Comment [Automated messa ge] The system which generated this result transmitted reference range: 35 - 45 mmHg. The reference range was not used to interpret this result as normal/abnormal. PO2 (test code = 3084223982) 102 See_Comment H [Automated messa ge] The system which generated this result transmitted reference range: 80 - 100 mmHg. The reference range was not used to interpret this result as normal/abnormal. HCO3 (test code = 1043138024) 25 See_Comment [Automated messa ge] The system which generated this result transmitted reference range: 22 - 26 mEq/L. The reference range was not used to interpret this result as normal/abnormal. BE (test code = 3508148537) 0.8 See_Comment [Automated messa ge] The system which generated this result transmitted reference range: -3.0 - 3.0 mEq/L. The reference range was not used to interpret this result as normal/abnormal. THB (test code = 6562297066) 12.5 g/dL 13.5-18.0 L %O2HB (test code = 0873479861) 97.2 % 94.0-99.0 %COHB ART (test code = 7085221659) 0.7 % 0.0-1.5 %METHB ART (test code = 1640457731) 0.4 % 0.4-1.5 VOL%O2 ART (test code = 6244241377) 17.2 % 15.0-23.0 QUES NA (test code = 2525856244) 132 mmol/L 135-145 L K+ (test code = 9989836578) 3.8 mmol/L 3.5-5.0 AC CA IONZ (test code = 7745627507) 4.50 mg/dL 4.50-5.30 GLUCOSE (test code = 7435071256) 137 mg/dL 70-110 H Lab Interpretation (test code = 60465-7) [facility] [id number] 09:11:33* Test Item Value Reference Range Interpretation Comme nts IONIZED CA (test code = 7637228379) 4.40 mg/dL 4.50-5.30 L PH SERUM (test code = 0231805329) 7.44 7.35-7.45 QUES Lab Interpretation (test cod e = 13208-0) [facility] 08:11:24* Test Item Value Reference Range Interpretation Comme nts PHOSPHORUS (test code = 5419393362) 2.6 mg/dL 2.5-5.0 Lab Interpretation (test cod e = 85019-5) [facility] 08:11:24* Test Item Value Reference Range Interpretation Comme nts MAGNESIUM (test code = 1124836798) 1.9 mg/dL 1.7-2.4 Lab Interpretation (test cod e = 90911-2) [facility] (NA, K, CL, CO2, GLUCOSE, BUN, CREATININE, CA)2022-10-02 08:11:24* Test Item Value Reference Range Interpretation Comme nts NA (test code = 8670036547) 131 mmol/L 135-145 L K (test code = 6632319702) 3.5 mmol/L 3.5-5.0 CL (test code = 4070631952) 100 mmol/L 98-108 CO2 TOTAL (test code = 9029821631) 21 mmol/L 23-31 L AGAP (test code = 8324311690) 10 2-16 BUN (test code = 2224139015) 10 mg/dL 7-23 GLUCOSE (test code = 9764506387) 86 mg/dL 70-110 CREATININE (test code = 6121595814) 0.58 mg/dL 0.60-1.25 L CALCIUM (test code = 8889410339) 8.0 mg/dL 8.6-10.6 L eGFR (test code = 2129273434) 173.6 mL/min/1.73m2 ROLAND (test code = ROLAND) Association of Glomerular Filtration Rate (GFR) and Staging of Kidney Disease* + --+ --+ ------+| GFR (mL/min/1.73 m2) ?| With Kidney Damage ?| ?Without Kidney Damage+ --------+ --------+ +| ?>90 ?| ?Stage one ?| ? Normal ?+ ---+ ---+ -------+| ?60-89 ?| ?Stage two ?| ? Decreased GFR ? + --+ --+ ------+| ?30-59 ?| ?Stage three ?| ? Stage three ? + --+ --+ ------+| ?15-29 ?| ?Stage four ? | ? Stage four ?+ ---+ ---+ -------+| ?<15 (or dialysis) ? ?| ?Stage five ? | ? Stage five ?+ ---+ ---+ -------+ *Each stage assumes the associated GFR level has been in effect for at least three months. ?Stages 1 to 5, with or without kidney disease, indicate chronic kidney disease. Notes: Determination of stages one and two (with eGFR >59mL/min/1.73 m2) requires estimation of kidney damage for at least three months as defined by structural or functional abnormalities of the kidney, manifested by either:Pathological abnormalities or Markers of kidney damage (including abnormalities in the composition of the blood or urine or abnormalities in imaging tests). Lab Interpretation (test code = 38434-0) Abnormal [facility] WITHOUT [id number] 08:00:45* Test Item Value Reference Range Interpretation Comme nts WBC (test code = 6690-2) 8.60 See_Comment [Automated message] The system which generated this result transmitted reference range: 4.20 - 10.70 10*3/?L. The reference range was not used to interpret this result as normal/abnormal. RBC (test code = 789-8) 3.73 See_Comment L [Automated message] The system which generated this result transmitted reference range: 4.26 - 5.52 10*6/?L. The reference range was not used to interpret this result as normal/abnormal. HGB (test code = 718-7) 10.6 g/dL 12.2-16.4 L HCT (test code = 4544-3) 31.1 % 38.4-49.3 L MCH (test code = 785-6) 28.4 pg 26.1-32.7 MCV (test code = 787-2) 83.4 fL 81.7-95.6 MCHC (test code = 786-4) 34.1 g/dL 31.2-35.0 PLT (test code = 777-3) 238 See_Comment [Automated message] The system which generated this result transmitted reference range: 150 - 328 10*3/?L. The reference range was not used to interpret this result as normal/abnormal. MPV (test code = 34982-0) 10.5 fL 9.8-13.0 RDW-CV (test code = 788-0) 13.8 % 12.1-15.4 RDW-SD (test code = 78426-4) 42.1 fL 38.5-51.6 NRBC x10^3 (test code = 5280195223) See_Comment [Automated messa ge] The system which generated this result transmitted reference range: 10*3/?L. The reference range was not used to interpret this result as normal/abnormal. NRBC/100 WBC (test code = 2310565773) 0.0 See_Comment [Automated messa ge] The system which generated this result transmitted reference range: 0.0 - 10.0 /100 WBCs. The reference range was not used to interpret this result as normal/abnormal. IPF % (test code = 6936617179) Lab Interpretation (test code = 71416-8) [facility]normal [facility] 10:50:09* Test Item Value Reference Range Interpretation Comme nts PHOSPHORUS (test code = 5851647548) 2.5 mg/dL 2.5-5.0 Lab Interpretation (test cod e = 53689-7) [facility] 10:50:09* Test Item Value Reference Range Interpretation Comme nts MAGNESIUM (test code = 8216433718) 2.0 mg/dL 1.7-2.4 Lab Interpretation (test cod e = 29131-3) Normal [facility] (NA, K, CL, CO2, GLUCOSE, BUN, CREATININE, CA)2022-10-01 10:50:09* Test Item Value Reference Range Interpretation Comme nts NA (test code = 9128832082) 134 mmol/L 135-145 L K (test code = 3887343798) 3.6 mmol/L 3.5-5.0 CL (test code = 7606351249) 103 mmol/L 98-108 CO2 TOTAL (test code = 9079743237) 23 mmol/L 23-31 AGAP (test code = 1120334747) 8 2-16 BUN (test code = 7638793812) 10 mg/dL 7-23 GLUCOSE (test code = 8060768553) 90 mg/dL 70-110 CREATININE (test code = 1945375644) 0.76 mg/dL 0.60-1.25 CALCIUM (test code = 6220844231) 7.5 mg/dL 8.6-10.6 L eGFR (test code = 8019803816) 127.1 mL/min/1.73m2 ROLAND (test code = ROLAND) Association of Glomerular Filtration Rate (GFR) and Staging of Kidney Disease* + --+ --+ ------+| GFR (mL/min/1.73 m2) ?| With Kidney Damage ?| ?Without Kidney Damage+ --------+ --------+ +| ?>90 ?| ?Stage one ?| ? Normal ?+ ---+ ---+ -------+| ?60-89 ?| ?Stage two ?| ? Decreased GFR ? + --+ --+ ------+| ?30-59 ?| ?Stage three ?| ? Stage three ? + --+ --+ ------+| ?15-29 ?| ?Stage four ? | ? Stage four ?+ ---+ ---+ -------+| ?<15 (or dialysis) ? ?| ?Stage five ? | ? Stage five ?+ ---+ ---+ -------+ *Each stage assumes the associated GFR level has been in effect for at least three months. ?Stages 1 to 5, with or without kidney disease, indicate chronic kidney disease. Notes: Determination of stages one and two (with eGFR >59mL/min/1.73 m2) requires estimation of kidney damage for at least three months as defined by structural or functional abnormalities of the kidney, manifested by either:Pathological abnormalities or Markers of kidney damage (including abnormalities in the composition of the blood or urine or abnormalities in imaging tests). Lab Interpretation (test code = 52514-1) [facility] [id number] 10:46:47* Test Item Value Reference Range Interpretation Comme nts IONIZED CA (test code = 6254735992) 4.20 mg/dL 4.50-5.30 L PH SERUM (test code = 8557974595) 7.40 7.35-7.45 Lab Interpretation (test cod e = 43561-7) Abnormal [facility] WITHOUT [id number] 10:13:26* Test Item Value Reference Range Interpretation Comme nts WBC (test code = 6690-2) 6.47 See_Comment [Automated message] The system which generated this result transmitted reference range: 4.20 - 10.70 10*3/?L. The reference range was not used to interpret this result as normal/abnormal. RBC (test code = 789-8) 3.57 See_Comment L [Automated message] The system which generated this result transmitted reference range: 4.26 - 5.52 10*6/?L. The reference range was not used to interpret this result as normal/abnormal. HGB (test code = 718-7) 10.1 g/dL 12.2-16.4 L HCT (test code = 4544-3) 30.4 % 38.4-49.3 L MCH (test code = 785-6) 28.3 pg 26.1-32.7 MCV (test code = 787-2) 85.2 fL 81.7-95.6 MCHC (test code = 786-4) 33.2 g/dL 31.2-35.0 PLT (test code = 777-3) 175 See_Comment [Automated message] The system which generated this result transmitted reference range: 150 - 328 10*3/?L. The reference range was not used to interpret this result as normal/abnormal. MPV (test code = 24026-0) 11.3 fL 9.8-13.0 RDW-CV (test code = 788-0) 13.8 % 12.1-15.4 RDW-SD (test code = 86995-0) 42.8 fL 38.5-51.6 NRBC x10^3 (test code = 6829365491) See_Comment [facility] The system which generated this result transmitted reference range: 10*3/?L. The reference range was not used to interpret this result as normal/abnormal. NRBC/100 WBC (test code = 2876139459) 0.0 See_Comment [[facility]ated [facility]] The system which generated this result transmitted reference range: 0.0 - 10.0 /100 WBCs. The reference range was not used to interpret this result as normal/abnormal. IPF % (test code = 4775470449) Lab Interpretation (test code = 18271-0) [facility]normal [facility] ([id number])(TOTAL CHOLESTEROL, TRIGLYCERIDES, HDL)2022-09-30 11:32:40* Test Item Value Reference Range Interpretation Comme nts CHOL (test code = 6206254973) 72 mg/dL 120-200 L HDL (test code = 1239204424) 21 mg/dL >=40 L HDLC RATIO (test code = 6703860439) 3.4 <=5.0 TRIG (test code = 3590723738) 136 mg/dL 30-170 LDL CHOL (test code = 90007-9) 24 mg/dL <=160 VLDL (test code = 7440733664) 27 mg/dL 5-60 Lab Interpretation (test cod e = 67384-4) [facility]normal [facility] (66137)(TOTAL CHOLESTEROL, TRIGLYCERIDES, HDL)2022-09-30 11:32:40* Test Item Value Reference Range Interpretation Comme nts CHOL (test code = 5902856181) 72 mg/dL 120-200 L HDL (test code = 5954053236) 21 mg/dL >=40 L HDLC RATIO (test code = 7817877564) 3.4 <=5.0 TRIG (test code = 8427373284) 136 mg/dL 30-170 LDL CHOL (test code = 55161-4) 24 mg/dL <=160 VLDL (test code = 0168192095) 27 mg/dL 5-60 Lab Interpretation (test cod e = 55881-2) [facility]:53* Test Item Value Reference Range Interpretation Comme nts PHOSPHORUS (test code = 9610665104) 1.9 mg/dL 2.5-5.0 L Lab Interpretation (test cod e = 59595-4) [facility]:53* Test Item Value Reference Range Interpretation Comme nts MAGNESIUM (test code = 9556973823) 2.0 mg/dL 1.7-2.4 Lab Interpretation (test cod e = 24351-2) [facility] (NA, K, CL, CO2, GLUCOSE, BUN, CREATININE, CA)2022-09-30 10:00:53* Test Item Value Reference Range Interpretation Comme nts NA (test code = 6070811026) 134 mmol/L 135-145 L K (test code = 8651403553) 3.7 mmol/L 3.5-5.0 CL (test code = 4508756149) 101 mmol/L 98-108 CO2 TOTAL (test code = 3580670645) 26 mmol/L 23-31 AGAP (test code = 1330860424) 7 2-16 BUN (test code = 8873732833) 12 mg/dL 7-23 GLUCOSE (test code = 7007890566) 128 mg/dL 70-110 H CREATININE (test code = 9227726848) 0.76 mg/dL 0.60-1.25 CALCIUM (test code = 0829794276) 7.4 mg/dL 8.6-10.6 L eGFR (test code = 0334692712) 127.1 mL/min/1.73m2 ROLAND (test code = ROLAND) Association of Glomerular Filtration Rate (GFR) and Staging of Kidney Disease* + --+ --+ ------+| GFR (mL/min/1.73 m2) ?| With Kidney Damage ?| ?Without Kidney Damage+ --------+ --------+ +| ?>90 ?| ?Stage one ?| ? Normal ?+ ---+ ---+ -------+| ?60-89 ?| ?Stage two ?| ? Decreased GFR ? + --+ --+ ------+| ?30-59 ?| ?Stage three ?| ? Stage three ? + --+ --+ ------+| ?15-29 ?| ?Stage four ? | ? Stage four ?+ ---+ ---+ -------+| ?<15 (or dialysis) ? ?| ?Stage five ? | ? Stage five ?+ ---+ ---+ -------+ *Each stage assumes the associated GFR level has been in effect for at least three months. ?Stages 1 to 5, with or without kidney disease, indicate chronic kidney disease. Notes: Determination of stages one and two (with eGFR >59mL/min/1.73 m2) requires estimation of kidney damage for at least three months as defined by structural or functional abnormalities of the kidney, manifested by either:Pathological abnormalities or Markers of kidney damage (including abnormalities in the composition of the blood or urine or abnormalities in imaging tests). Lab Interpretation (test code = 99818-4) [facility]:53* Test Item Value Reference Range Interpretation Comme nts PHOSPHORUS (test code = 1510841960) 1.9 mg/dL 2.5-5.0 L Lab Interpretation (test cod e = 19613-8) [facility]:00:53* Test Item Value Reference Range Interpretation Comme nts MAGNESIUM (test code = 3801390558) 2.0 mg/dL 1.7-2.4 Lab Interpretation (test cod e = 44406-6) [facility] (NA, K, CL, CO2, GLUCOSE, BUN, CREATININE, CA)2022-09-30 10:00:53* Test Item Value Reference Range Interpretation Comme nts NA (test code = 1543804669) 134 mmol/L 135-145 L K (test code = 7526175599) 3.7 mmol/L 3.5-5.0 CL (test code = 9719256224) 101 mmol/L 98-108 CO2 TOTAL (test code = 9940579866) 26 mmol/L 23-31 AGAP (test code = 8215591437) 7 2-16 BUN (test code = 8529593212) 12 mg/dL 7-23 GLUCOSE (test code = 8575417695) 128 mg/dL 70-110 H CREATININE (test code = 7270358708) 0.76 mg/dL 0.60-1.25 CALCIUM (test code = 5280261974) 7.4 mg/dL 8.6-10.6 L eGFR (test code = 0192387601) 127.1 mL/min/1.73m2 ROLAND (test code = ROLAND) Association of Glomerular Filtration Rate (GFR) and Staging of Kidney Disease* + --+ --+ ------+| GFR (mL/min/1.73 m2) ?| With Kidney Damage ?| ?Without Kidney Damage+ --------+ --------+ +| ?>90 ?| ?Stage one ?| ? Normal ?+ ---+ ---+ -------+| ?60-89 ?| ?Stage two ?| ? Decreased GFR ? + --+ --+ ------+| ?30-59 ?| ?Stage three ?| ? Stage three ? + --+ --+ ------+| ?15-29 ?| ?Stage four ? | ? Stage four ?+ ---+ ---+ -------+| ?<15 (or dialysis) ? ?| ?Stage five ? | ? Stage five ?+ ---+ ---+ -------+ *Each stage assumes the associated GFR level has been in effect for at least three months. ?Stages 1 to 5, with or without kidney disease, indicate chronic kidney disease. Notes: Determination of stages one and two (with eGFR >59mL/min/1.73 m2) requires estimation of kidney damage for at least three months as defined by structural or functional abnormalities of the kidney, manifested by either:Pathological abnormalities or Markers of kidney damage (including abnormalities in the composition of the blood or urine or abnormalities in imaging tests). Lab Interpretation (test code = 92194-1) Abnormal [facility] [id number] 09:21:16* Test Item Value Reference Range Interpretation Comme nts IONIZED CA (test code = 3203756580) 3.90 mg/dL 4.50-5.30 L PH SERUM (test code = 2770738526) 7.56 7.35-7.45 H QUES Lab Interpretation (test cod e = 02000-9) Abnormal [facility] [id number] 09:21:16* Test Item Value Reference Range Interpretation Comme nts IONIZED CA (test code = 7801405917) 3.90 mg/dL 4.50-5.30 L PH SERUM (test code = 3143467494) 7.56 7.35-7.45 H QUES Lab Interpretation (test cod e = 53875-6) Abnormal [facility] WITHOUT [id number] 09:12:45* Test Item Value Reference Range Interpretation Comme nts WBC (test code = 6690-2) 7.58 See_Comment [Automated message] The system which generated this result transmitted reference range: 4.20 - 10.70 10*3/?L. The reference range was not used to interpret this result as normal/abnormal. RBC (test code = 789-8) 4.13 See_Comment L [Automated message] The system which generated this result transmitted reference range: 4.26 - 5.52 10*6/?L. The reference range was not used to interpret this result as normal/abnormal. HGB (test code = 718-7) 11.6 g/dL 12.2-16.4 L HCT (test code = 4544-3) 34.0 % 38.4-49.3 L MCH (test code = 785-6) 28.1 pg 26.1-32.7 MCV (test code = 787-2) 82.3 fL 81.7-95.6 MCHC (test code = 786-4) 34.1 g/dL 31.2-35.0 PLT (test code = 777-3) 180 See_Comment [Automated message] The system which generated this result transmitted reference range: 150 - 328 10*3/?L. The reference range was not used to interpret this result as normal/abnormal. MPV (test code = 39983-4) 11.4 fL 9.8-13.0 RDW-CV (test code = 788-0) 13.6 % 12.1-15.4 RDW-SD (test code = 93643-7) 41.0 fL 38.5-51.6 NRBC x10^3 (test code = 6735294747) See_Comment [Automated messa ge] The system which generated this result transmitted reference range: 10*3/?L. The reference range was not used to interpret this result as normal/abnormal. NRBC/100 WBC (test code = 9228020136) 0.0 See_Comment [Automated messa ge] The system which generated this result transmitted reference range: 0.0 - 10.0 /100 WBCs. The reference range was not used to interpret this result as normal/abnormal. IPF % (test code = 2389430967) Lab Interpretation (test code = 33463-9) Abnormal [facility] WITHOUT [id number] 09:12:45* Test Item Value Reference Range Interpretation Comme nts WBC (test code = 6690-2) 7.58 See_Comment [Automated message] The system which generated this result transmitted reference range: 4.20 - 10.70 10*3/?L. The reference range was not used to interpret this result as normal/abnormal. RBC (test code = 789-8) 4.13 See_Comment L [Automated message] The system which generated this result transmitted reference range: 4.26 - 5.52 10*6/?L. The reference range was not used to interpret this result as normal/abnormal. HGB (test code = 718-7) 11.6 g/dL 12.2-16.4 L HCT (test code = 4544-3) 34.0 % 38.4-49.3 L MCH (test code = 785-6) 28.1 pg 26.1-32.7 MCV (test code = 787-2) 82.3 fL 81.7-95.6 MCHC (test code = 786-4) 34.1 g/dL 31.2-35.0 PLT (test code = 777-3) 180 See_Comment [Automated message] The system which generated this result transmitted reference range: 150 - 328 10*3/?L. The reference range was not used to interpret this result as normal/abnormal. MPV (test code = 84533-8) 11.4 fL 9.8-13.0 RDW-CV (test code = 788-0) 13.6 % 12.1-15.4 RDW-SD (test code = 04780-5) 41.0 fL 38.5-51.6 NRBC x10^3 (test code = 0520846145) See_Comment [Automated messa ge] The system which generated this result transmitted reference range: 10*3/?L. The reference range was not used to interpret this result as normal/abnormal. NRBC/100 WBC (test code = 4370306460) 0.0 See_Comment [Automated messa ge] The system which generated this result transmitted reference range: 0.0 - 10.0 /100 WBCs. The reference range was not used to interpret this result as normal/abnormal. IPF % (test code = 9949264992) Lab Interpretation (test code = 35843-8) [facility] Lactic [id number] 06:28:36* Test Item Value Reference Range Interpretation Comme nts PH (test code = 2) 7.46 7.35-7.45 H PCO2 (test code = 2211286882) 32 See_Comment L [Automated messa ge] The system which generated this result transmitted reference range: 35 - 45 mmHg. The reference range was not used to interpret this result as normal/abnormal. PO2 (test code = 4923106288) 142 See_Comment H [Automated messa ge] The system which generated this result transmitted reference range: 80 - 100 mmHg. The reference range was not used to interpret this result as normal/abnormal. HCO3 (test code = 9633879613) 22 See_Comment [Automated messa ge] The system which generated this result transmitted reference range: 22 - 26 mEq/L. The reference range was not used to interpret this result as normal/abnormal. BE (test code = 5229433411) -0.8 See_Comment [Automated messa ge] The system which generated this result transmitted reference range: -3.0 - 3.0 mEq/L. The reference range was not used to interpret this result as normal/abnormal. THB (test code = 4896129570) 13.1 g/dL 13.5-18.0 L %O2HB (test code = 9063451104) 98.3 % 94.0-99.0 %COHB ART (test code = 6946571969) 0.4 % 0.0-1.5 %METHB ART (test code = 4613256331) 0.2 % 0.4-1.5 L VOL%O2 ART (test code = 6958003725) 18.3 % 15.0-23.0 NA (test code = 5925716209) 133 mmol/L 135-145 L K+ (test code = 1035503554) 3.8 mmol/L 3.5-5.0 AC CA IONZ (test code = 0986764878) 4.30 mg/dL 4.50-5.30 L GLUCOSE (test code = 9941473601) 126 mg/dL 70-110 H LACTIC ACID (test code = 0730962681) 1.03 mmol/L 0.50-2.20 Lab Interpretation (test code = 91466-7) [facility] + Lactic [id number] 06:28:36* Test Item Value Reference Range Interpretation Comme nts PH (test code = 2) 7.46 7.35-7.45 H PCO2 (test code = 8508852241) 32 See_Comment L [Automated messa ge] The system which generated this result transmitted reference range: 35 - 45 mmHg. The reference range was not used to interpret this result as normal/abnormal. PO2 (test code = 3864624652) 142 See_Comment H [Automated messa ge] The system which generated this result transmitted reference range: 80 - 100 mmHg. The reference range was not used to interpret this result as normal/abnormal. HCO3 (test code = 3326784377) 22 See_Comment [Automated messa ge] The system which generated this result transmitted reference range: 22 - 26 mEq/L. The reference range was not used to interpret this result as normal/abnormal. BE (test code = 5477418572) -0.8 See_Comment [Automated messa ge] The system which generated this result transmitted reference range: -3.0 - 3.0 mEq/L. The reference range was not used to interpret this result as normal/abnormal. THB (test code = 9803601306) 13.1 g/dL 13.5-18.0 L %O2HB (test code = 6162439411) 98.3 % 94.0-99.0 %COHB ART (test code = 0769896335) 0.4 % 0.0-1.5 %METHB ART (test code = 3323039170) 0.2 % 0.4-1.5 L VOL%O2 ART (test code = 0645850132) 18.3 % 15.0-23.0 NA (test code = 3898549400) 133 mmol/L 135-145 L K+ (test code = 2340954366) 3.8 mmol/L 3.5-5.0 AC CA IONZ (test code = 9630322900) 4.30 mg/dL 4.50-5.30 L GLUCOSE (test code = 1471590262) 126 mg/dL 70-110 H LACTIC ACID (test code = 8106784464) 1.03 mmol/L 0.50-2.20 Lab Interpretation (test code = 23504-5) [facility] + Lactic [id number] 23:44:33* Test Item Value Reference Range Interpretation Comme nts PH (test code = 2) 7.36 7.35-7.45 PCO2 (test code = 9652820291) 42 See_Comment [Automated messa ge] The system which generated this result transmitted reference range: 35 - 45 mmHg. The reference range was not used to interpret this result as normal/abnormal. PO2 (test code = 2690364809) 114 See_Comment H [Automated messa ge] The system which generated this result transmitted reference range: 80 - 100 mmHg. The reference range was not used to interpret this result as normal/abnormal. HCO3 (test code = 7055930867) 23 See_Comment [Automated messa ge] The system which generated this result transmitted reference range: 22 - 26 mEq/L. The reference range was not used to interpret this result as normal/abnormal. BE (test code = 3590125915) -2.0 See_Comment [Automated messa ge] The system which generated this result transmitted reference range: -3.0 - 3.0 mEq/L. The reference range was not used to interpret this result as normal/abnormal. THB (test code = 6913654848) 13.5 g/dL 13.5-18.0 %O2HB (test code = 3866909363) 96.5 % 94.0-99.0 %COHB ART (test code = 5974507960) 1.4 % 0.0-1.5 %METHB ART (test code = 7567920355) 0.2 % 0.4-1.5 L VOL%O2 ART (test code = 9864194140) 18.4 % 15.0-23.0 NA (test code = 3926208667) 133 mmol/L 135-145 L K+ (test code = 3775056093) 3.8 mmol/L 3.5-5.0 AC CA IONZ (test code = 9078675940) 4.30 mg/dL 4.50-5.30 L GLUCOSE (test code = 0428119409) 152 mg/dL 70-110 H LACTIC ACID (test code = 3184324899) 1.65 mmol/L 0.50-2.20 Lab Interpretation (test code = 31073-6) [facility] + Lactic [id number] 23:44:33* Test Item Value Reference Range Interpretation Comme nts PH (test code = 2) 7.36 7.35-7.45 PCO2 (test code = 3227786859) 42 See_Comment [Automated messa ge] The system which generated this result transmitted reference range: 35 - 45 mmHg. The reference range was not used to interpret this result as normal/abnormal. PO2 (test code = 3065195031) 114 See_Comment H [Automated messa ge] The system which generated this result transmitted reference range: 80 - 100 mmHg. The reference range was not used to interpret this result as normal/abnormal. HCO3 (test code = 7152443271) 23 See_Comment [Automated messa ge] The system which generated this result transmitted reference range: 22 - 26 mEq/L. The reference range was not used to interpret this result as normal/abnormal. BE (test code = 7499787535) -2.0 See_Comment [Automated messa ge] The system which generated this result transmitted reference range: -3.0 - 3.0 mEq/L. The reference range was not used to interpret this result as normal/abnormal. THB (test code = 3780807912) 13.5 g/dL 13.5-18.0 %O2HB (test code = 6646597862) 96.5 % 94.0-99.0 %COHB ART (test code = 4232569834) 1.4 % 0.0-1.5 %METHB ART (test code = 5043098618) 0.2 % 0.4-1.5 L VOL%O2 ART (test code = 3162624032) 18.4 % 15.0-23.0 NA (test code = 3529339864) 133 mmol/L 135-145 L K+ (test code = 3892946351) 3.8 mmol/L 3.5-5.0 AC CA IONZ (test code = 2294401960) 4.30 mg/dL 4.50-5.30 L GLUCOSE (test code = 2029704768) 152 mg/dL 70-110 H LACTIC ACID (test code = 1091901680) 1.65 mmol/L 0.50-2.20 Lab Interpretation (test code = 75605-7) [facility] 06:56:27* Test Item Value Reference Range Interpretation Comme nts PHOSPHORUS (test code = 0181386293) 1.8 mg/dL 2.5-5.0 L Lab Interpretation (test cod e = 71633-9) [facility] 06:56:27* Test Item Value Reference Range Interpretation Comme nts MAGNESIUM (test code = 1114468635) 1.7 mg/dL 1.7-2.4 Lab Interpretation (test cod e = 11213-0) Normal [facility] (NA, K, CL, CO2, GLUCOSE, BUN, CREATININE, CA)2022-09-29 06:56:27* Test Item Value Reference Range Interpretation Comme nts NA (test code = 9078259945) 129 mmol/L 135-145 L K (test code = 9653706994) 3.1 mmol/L 3.5-5.0 L CL (test code = 3926859940) 99 mmol/L 98-108 CO2 TOTAL (test code = 7297245813) 22 mmol/L 23-31 L AGAP (test code = 4311872045) 8 2-16 BUN (test code = 3537270465) 14 mg/dL 7-23 GLUCOSE (test code = 8296636656) 113 mg/dL 70-110 H CREATININE (test code = 9039917224) 0.67 mg/dL 0.60-1.25 CALCIUM (test code = 2550956894) 8.3 mg/dL 8.6-10.6 L eGFR (test code = 3587233495) 147.0 mL/min/1.73m2 ROLAND (test code = ROLAND) Association of Glomerular Filtration Rate (GFR) and Staging of Kidney Disease* + --+ --+ ------+| GFR (mL/min/1.73 m2) ?| With Kidney Damage ?| ?Without Kidney Damage+ --------+ --------+ +| ?>90 ?| ?Stage one ?| ? Normal ?+ ---+ ---+ -------+| ?60-89 ?| ?Stage two ?| ? Decreased GFR ? + --+ --+ ------+| ?30-59 ?| ?Stage three ?| ? Stage three ? + --+ --+ ------+| ?15-29 ?| ?Stage four ? | ? Stage four ?+ ---+ ---+ -------+| ?<15 (or dialysis) ? ?| ?Stage five ? | ? Stage five ?+ ---+ ---+ -------+ *Each stage assumes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 Surgeries: Past Surgical History: Procedure Laterality Date TONSILLECTOMY TYMPANOSTOMY Anesthesia Physical ExamGeneralno apparent distress and alert and oriented x 3 Neuro/Psychneurological Nonfocal Dentalno notable dental hx Abdominal GI exam normal (+) abdomen soft and benign Airway Mallampati score:IITM distance:> 5 cmNeck ROM: limitedMouth opening:normal(+) Normal facies Extremity Normal extremity Pulmonarypulmonary exam normal and bilateral clear to auscultation Other Cardiovascularcardiovascular exam normalRhythm:RegularRate: Normal Anesthesia Plan ASA Status: 2 Plan discussed during pre-op evaluation: TIVA and GeneralAnesthetic plan on DOS: TIVA and GeneralPlan to include: IV induction, ETT, nasal cannula, face mask and oral/nasal airwayAnesthesia plan discussed with: patient or representativePost-Operative Analgesia: routine analgesia & antiemeticsRecovery Plan: PACUAdditional comments: 44368-7Keczvtmlxaxcpv Preoperative evaluation and management xdhpHO6863-65-97G38:07:10Anesthesio logy Preoperative evaluation and management noteTXT1.2.840.893980.1.13.104.2.7. 2.236721|[id number] for patient zyyu95738-5Oispylqq operation noteLNAN-ANESTHESIOLOGY ANESTHESIOLOGISTAN-ANESTHESIOLOGY ANESTHESIOLOGIST[address] To[id number] 4LSJKONEOBSPINTSRBCEVTW6929-75-46N4 4:07:101.2.840.863095.1.72.3.15|1.2 .840.791765.1.13.104.2.7.2.727879_1 [id number] AN-ANESTHESIOLOGY ANESTHESIOLOGIST [facility]
[2023-06-08 00:03] LABS: SARS-CoV-2 Antigen Rapid Res Negative (Negative)
--- NOTE | 2023-06-08 00:31 | EDPHYS ---
Physician Documentation [facility] Name: Mike Virk Age: 22 yrs Sex: Male : 2000 Arrival Date: 06/07/2023 Time: 22:48 Bed 9 Private MD: ED Physician Jesse Simon HPI: 06/07 00:29 This 22 yrs old Male presents to ER via Ambulatory with complaints of Flu kb Symptoms. 00:29 Patient is a 22-year-old male who presents for headache, fever, chills, cough that kb started this morning. Mother states siblings tested positive for flu yesterday. Denies nausea, vomiting, diarrhea. Historical: - Allergies: 06/06 23:26 No Known Allergies; tl4 - Home Meds: 23:26 Keppra 1 Oral tab 1 tab 2 times per day [Active]; tl4 23:30 celecoxib 200 mg Oral capsule 1 cap 2 times per day [Active]; tl4 - PMHx: 23:26 Intellectually disabled; Seizures; tl4 - Immunization history:: Adult Immunizations unknown. - Social history:: Smoking status: Patient denies any tobacco usage or history of. ROS: 06/07 00:29 Constitutional: As per HPI kb Exam: 00:29 Constitutional: This is a well developed, well nourished patient who is awake, alert, kb and in no acute distress. Head/Face: Normocephalic, atraumatic. ENT: Moist Mucous membranes Cardiovascular: Regular rate Respiratory: Respirations even and unlabored. No increased work of breathing. Talking in full sentences Abdomen/GI: Soft, non-tender. No distention Skin: Warm, dry with normal turgor. Normal color. MS/ Extremity: Pulses equal, no cyanosis. Neurovascular intact. Full, normal range of motion. Neuro: Awake and alert, GCS 15, oriented to person, place, time, and situation. Moves all extremities. Normal gait. Vital Signs: 06/06 23:24 BP 109 / 54; Pulse 112; Resp 18; Temp 100.9(O); Pulse Ox 100% on R/A; Weight 127.01 kg; tl4 Height 5 ft. 11 in. ; 06/07 01:56 BP 116 / 65; Pulse 99; Resp 18; Temp 100; Pulse Ox 99% ; vc1 06/06 23:24 Body Mass Index 39.05 (127.01 kg, 180.34 cm) tl4 MDM: 06/06 23:04 Patient medically screened. kb 06/07 00:29 Differential diagnosis: Flu, COVID, URI. Data reviewed: vital signs, nurses notes. kb Historians other than the Patient: Parent: Mother. Counseling: I had a detailed discussion with the patient and/or guardian regarding the historical points, exam findings, and any diagnostic results supporting the discharge/admit diagnosis, lab results, the need for outpatient follow up, a family practitioner, to return to the emergency department if symptoms worsen or persist or if there are any questions or concerns that arise at home. 06/06 23:19 Order name: Flu; Complete Time: 00:35 kb 06/06 23:19 Order name: SARS-COV-2 Antigen Rapid; Complete Time: 00:06 kb Administered Medications: 06/06 23:42 Not Given (pt can't take medication ): bflgarwla242 mg PO once tl4 23:43 Drug: Acetaminophen PO 1000 mg PO once Route: PO; tl4 Disposition: 06/07 01:52 Co-signature as Attending Physician, Jesse Simon MD I agree with the assessment sp4 and plan of care. I reviewed the patient's care provided by Advanced Practice Provider \\T\\ agree w/ the diagnosis \\T\\ care plan. I personally saw the pt \\T\\ performed a substantive portion of the visit, incldng all aspects of the (History/Exam/Medical Decision Making). Disposition Summary: 06/08/23 00:30 Discharge Ordered Notes: Location: Home kb Condition: Stable kb Diagnosis - Acute upper respiratory infection, unspecified kb Followup: kb - With: Emergency Department - When: As needed - Reason: Worsening of condition Followup: kb - With: Private Physician - When: 2 - 3 days - Reason: Recheck today's complaints, Continuance of care, Re-evaluation by your physician Discharge Instructions: - Discharge Summary Sheet kb - Upper Respiratory Infection, Adult, Froq-il-Xznk kb - Viral Respiratory Infection, Fnvk-Ak-Ywsw kb Forms: - Medication Reconciliation Form kb - Thank You Letter kb - Antibiotic Education kb - Prescription Opioid Use kb - Patient Portal Instructions kb - Leadership Thank You Letter kb Signatures: Dispatcher [employer] Renita Serrano FNP-C [employer]-Ckb Jesse Simon MD MD sp4 Vicente Barnes RN RN tl4 Corrections: (The following items were deleted from the chart) 06/06 23:27 23:26 PMHx: "infection around heart, 2017 in [facility]"; tl4 tl4
--- NOTE | 2023-06-08 00:31 | ER ---
Nurse's Notes [facility] Name: Mike Virk Age: 22 yrs Sex: Male : 2000 Arrival Date: 06/07/2023 Time: 22:48 Bed 9 Private MD: Diagnosis: Acute upper respiratory infection, unspecified Presentation: 06/06 23:24 Chief complaint: Patient states: Pt c/o headache, fever/chills, cough today. Brother tl4 tested positive for Flu A last night in ED. Coronavirus screen: chills, congestion, cough unrelated to allergies, headache. Ebola Screen: No symptoms or risks identified at this time. Initial Sepsis Screen: Does the patient meet any 2 criteria? No. Patient's initial sepsis screen is negative. Does the patient have a suspected source of infection? No. Patient's initial sepsis screen is negative. Risk Assessment: Do you want to hurt yourself or someone else? Patient reports no desire to harm self or others. Onset of symptoms was June 07, 2023. 23:24 Method Of Arrival: Ambulatory tl4 23:24 Acuity: ALMITA 4 tl4 Triage Assessment: 23:22 General: Appears in no apparent distress. Behavior is calm, cooperative, appropriate tl4 for age. Pain: Complains of pain in head. EENT: Reports nasal congestion nasal discharge Denies difficulty swallowing. Neuro: No deficits noted. Cardiovascular: No deficits noted. Respiratory: Reports cough that is Denies shortness of breath labored breathing. GI: No deficits noted. No signs and/or symptoms were reported involving the gastrointestinal system. : No deficits noted. No signs and/or symptoms were reported regarding the genitourinary system. Derm: No deficits noted. No signs and/or symptoms reported regarding the dermatologic system. Musculoskeletal: No deficits noted. No signs and/or symptoms reported regarding the musculoskeletal system. Historical: - Allergies: 23:26 No Known Allergies; tl4 - Home Meds: 23:26 Keppra 1 Oral tab 1 tab 2 times per day [Active]; tl4 23:30 celecoxib 200 mg Oral capsule 1 cap 2 times per day [Active]; tl4 - PMHx: 23:26 Intellectually disabled; Seizures; tl4 - Immunization history:: Adult Immunizations unknown. - Social history:: Smoking status: Patient denies any tobacco usage or history of. Screenin/07 01:56 [facility] ED Fall Risk Assessment (Adult) History of falling in the last 3 months, vc1 including since admission No falls in past 3 months (0 pts) Confusion or Disorientation No (0 pts) Intoxicated or Sedated No (0 pts) Impaired Gait No (0 pts) Mobility Assist Device Used No (0 pt) Altered Elimination No (0 pt) Score/Fall Risk Level 0 - 2 = Low Risk Oriented to surroundings, Maintained a safe environment, Educated pt \\T\\ family on fall prevention, incl call for assistance when getting out of bed. Abuse screen: Denies threats or abuse. Nutritional screening: No deficits noted. Tuberculosis screening: No symptoms or risk factors identified. Assessment: 01:46 Reassessment: Patients mom states she is upset that patient was brought to a room just vc1 to be discharged. Pt explained that we have no control over billing and there should not be an increase in mendez just for being placed in a room. Pts mom also stated that the nurse discharging the patient told him to alternate between Ibuprofen and Tylenol and the patient is not supposed to take Ibuprofen because he takes Celebrex. Pt is able to make own medical decisions and aware he is not supposed to take NSAIDs with Celebrex. General: Appears in no apparent distress. uncomfortable, ill, Behavior is calm, cooperative, appropriate for age. Pain: Denies pain. Neuro: Level of Consciousness is awake, alert, obeys commands, Oriented to person, place, time, situation, Appropriate for age. Cardiovascular: No deficits noted. Respiratory: Airway is patent Respiratory effort is even, unlabored, Breath sounds are clear. GI: No deficits noted. No signs and/or symptoms were reported involving the gastrointestinal system. : No deficits noted. No signs and/or symptoms were reported regarding the genitourinary system. EENT: No deficits noted. No signs and/or symptoms were reported regarding the EENT system. Derm: No deficits noted. No signs and/or symptoms reported regarding the dermatologic system. Vital Signs: 06/06 23:24 BP 109 / 54; Pulse 112; Resp 18; Temp 100.9(O); Pulse Ox 100% on R/A; Weight 127.01 kg; tl4 Height 5 ft. 11 in. ; 06/07 01:56 BP 116 / 65; Pulse 99; Resp 18; Temp 100; Pulse Ox 99% ; vc1 06/06 23:24 Body Mass Index 39.05 (127.01 kg, 180.34 cm) tl4 ED Course: 06/06 22:58 Patient arrived in ED. ae5 23:04 Renita Chambers FNP-C is [facility]. kb 23:04 Jesse Simon MD is Attending Physician. kb 23:22 Arm band placed on left wrist. tl4 23:25 Triage completed. tl4 23:33 SARS-COV-2 Antigen Rapid Sent. tl4 23:33 Flu Sent. tl4 06/07 01:58 No provider procedures requiring assistance completed. Patient did not have IV access vc1 during this emergency room visit. 02:00 Provided Education on: Do not take NSAIDs while taking Celebrex, if anyone tells you to vc1 take ibuprofen remind them you take Celebrex'. Administered Medications: 06/06 23:42 Not Given (pt can't take medication ): izqvtshfy516 mg PO once tl4 23:43 Drug: Acetaminophen PO 1000 mg PO once Route: PO; tl4 Medication: 06/07 01:59 VIS not applicable for this client. vc1 Outcome: 00:30 Discharge ordered by . kb 01:59 Discharged to home ambulatory, with family, vc1 01:59 Condition: good 01:59 Discharge instructions given to patient, family, Instructed on discharge instructions, follow up and referral plans. Demonstrated understanding of instructions, follow-up care, 02:01 Patient left the ED. vc1 Signatures: eRnita Chambers FNP-C FNP-Ckb Calcote, Vanessa RN RN vc1 Vicente Barnes RN RN tl4 Cristin Ferguson ae5 Corrections: (The following items were deleted from the chart) 06/06 23:27 23:26 PMHx: "infection around heart, 2017 in [facility]"; tl4 tl4 06/07 01:58 01:56 BP 116 / 65; Pulse 18bpm; Resp 99bpm; Pulse Ox 99%; Temp 100F; vc1 vc1
[2023-06-08 02:16] VITALS: BP 116/65; TEMP 100; O2SAT 99
== END ==
LOC: ER 22:48
DX: J06.9 Acute upper respiratory infection, unspecified (principal); Z11.52 Encounter for screening for COVID-19
CPT/HCPCS: 36415; 87804; 87811; 99283

== ENCOUNTER 2023-08-29 19:14 | Emergency (ER) | payer OTHER ==
--- OUTSIDE RECORDS SUMMARY | 2023-08-29 19:21 | XMS REPORT | Continuity of Care Document ---
Author Name Unknown Address [address] [facility] [place] [address] [facility] thconnect Address [address] [facility] [address] [place] [address] Care Team Providers Care Manager Credit Name Role Phone PCP, PATIENT DOES NOT HAVE A Primary Care Physic ariel Unavailable Srini Busby Attending Clinician [phone] SRINI PETERS Attending Clinician UnavailBrian Palacios MD Attending Clinician BRIAN GUDINO Attending Clinician Anna vailable Service/[place], Surgery C Attending Clinician U Simba Aguirre MD Attending Clinician [phone] SIMBA CURIEL Attending Clinician Unavailable Doctor Unassigned, [place] Attending Clinician U bonnie Toney RN, Alison Nye Attending Clinician [phone] Claudy Mccall MD Attending Clinician [phone] Karina Nash DO Attending Clinician [phone] Sabas Zhang DO Attending Clinician [phone] Colin Bowen MD Attending Clinician [phone] Master Bowen MD Attending Clinician [phone] MASTER BOWEN Attending Clinician Unavailable Tc Arias MD Attending Clinician [phone] TC ARIAS Attending Clinician Karina Herndon DO Admitting Clinician [phone] KARINA NASH Admitting Clinician Unavailabl e Payers Payer Name Policy Type Policy Number Effective Date Expirati on Date Source [employer] [id number] 2022 00:00:00 [employer] [id number] 2022 00:00:00 Problems Condition Name Condition Details Condition Category Status Onset Date Resolution Date Last Treatment Date Treating Clinician Comments Source 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 Active 07 00:00: 00 [facility] Trauma Trauma Disease Active 09-28 00:00: 00 [facility] Obesity (BMI 30-39.9) Obesity (BMI 30-39.9) Disease Active 09-28 00:00: 00 [facility] Seizure Seizure Disease Active 08-08 00:00: 00 [facility] Intellectu al disability Intellectu al disability Disease Active 08-08 00:00: 00 [facility] Allergies, Adverse Reactions, Alerts Allergy Name Allergy Type Status Severity Reaction(s) Onset Date Inactive Date Treating Clinician Comments Source NO KNOWN ALLERGIE S Drug Class Active [facility] Social History Social Habit Start Date Stop Date Quantity Comments Source History SDOH Social Connections Get Together [facility] History SDOH Social Connections Religion [facility] History SDOH Social Connections Membership [facility] History SDOH Social Connections Meetings [facility] History SDOH Alcohol Std Drinks [facility] History SDOH Alcohol Binge [facility] SDOH Alcohol Comment [place] [facility] Alcohol intake 2022-11-28 00:00:00 2022-11-28 00:00:00 Lifetime non-drinker (finding) [facility] History of Social function 2022-10-18 00:00:00 2022-10-18 00:00:00 [facility] Tobacco use and exposure 2022-10-18 00:00:00 2022-10-18 00:00:00 Smokeless tobacco non-user [facility] History SDOH Alcohol Frequency 2022-09-28 00:00:00 2022-09-28 00:00:00 1 [facility] History SDOH Social Connections Phone 2022-09-28 00:00:00 2022-09-28 00:00:00 5 [facility] History SDOH Social Connections Living 2022-09-28 00:00:00 2022-09-28 00:00:00 7 [facility] History SDOH Financial 2022-09-28 00:00:00 2022-09-28 00:00:00 5 [facility] History SDOH Food Worry 2022-09-28 00:00:00 2022-09-28 00:00:00 1 [facility] History SDOH Food Scarcity 2022-09-28 00:00:00 2022-09-28 00:00:00 1 [facility] History SDOH Transport Med 2022-09-28 00:00:00 2022-09-28 00:00:00 2 [facility] History SDOH Transport Non-Med 2022-09-28 00:00:00 2022-09-28 00:00:00 2 [facility] History SDOH Housing Unable to Pay 2022-09-28 00:00:00 2022-09-28 00:00:00 2 [facility] History SDOH Housing Places Lived 2022-09-28 00:00:00 2022-09-28 00:00:00 1 [facility] History SDOH Housing Homeless Last Year 2022-09-28 00:00:00 2022-09-28 00:00:00 2 [facility] Sex Assigned At 1999 00:00:00 2000 00:00:00 [facility] Smoking Status Start Date Stop Date Source Never smoked tobacco [facility] Medications Ordered Medication Name Filled Medication Name Start Date Stop Date Current Medication? Ordering Clinician Indication Dosage Frequency Signature (SIG) Comments Components Source tamsulosin 0.4 mg 24 hr capsule 10-10 00:00: 00 10-18 04:59 :00 No [id number] .4mg Take 1 capsule by mouth in the morning for 7 days. [facility] levETIRAcet am (KEPPRA) tablet 1,000 mg 10-09 02:00: 00 Yes 1000mg 1,000 mg, Oral, BID, First dose (after last modificati on) on Mon10/08/22 at 2100, Until Discontinu ed, Routine [facility] acetaminoph en 325 mg tablet 10-09 00:00: 00 10-09 04:59 :00 No [id number] 650mg Take 2 tablets by mouth every 8 (eight) hours. [facility] celecoxib 100 mg capsule 10-09 00:00: 00 10-25 04:59 :00 No [id number] 100mg Take 1 capsule by mouth in the morning and 1 capsule in the evening. Take with meals. Do all this for 15 days. [facility] HYDROcodone -acetaminop hen 5-325 mg tablet 10-09 00:00: 00 10-17 04:59 :00 No [id number] 1{tbl} Take 1 tablet by mouth every 6 (six) hours as needed for Pain (scale 4-6) for up to 7 days. Indication s: acute pain [facility] methocarbam oL 500 mg tablet 10-09 00:00: 00 10-17 04:59 :00 No [id number] 500mg Take 1 tablet by mouth 4 (four) times daily for 7 days. [facility] methocarbam oL (ROBAXIN) tablet 500 mg 10-07 17:00: 00 Yes 500mg 500 mg, Oral, QID, First dose on Mon10/07/22 at 1200, Until Discontinu ed, Routine [facility] celecoxib (CELEBREX) capsule 100 mg 10-07 14:30: 00 Yes 100mg 100 mg, Oral, BID MEALS, First dose on Mon10/07/22 at 0930, Until Discontinu ed, Routine [facility] acetaminoph en (TYLENOL) tablet 650 mg 10-07 14:30: 00 Yes 650mg 650 mg, Oral, Q8H, First dose on Mon10/07/22 at 0930, Until Discontinu ed, Routine [facility] D5W 0.45% NaCl (1/2NS) 1 L + KCL 20 mEq 10-07 14:30: 00 10-08 15:48 :17 No IV Infusion, at 42 mL/hr, CONTINUOUS , Starting on Mon10/07/22 at 0930, Until Mon10/08/22 at 1048, Routine [facility] HYDROcodone -acetaminop hen (NORCO 5) 5-325 mg tablet 1 tablet 10-07 14:15: 22 Yes 1{tbl} 1 tablet, Oral, Q6HPRN, Starting on Mon10/07/22 at 0915, Until Discontinu ed, Routine, Pain (scale 4-6) [facility] iopamidol (ISOVUE 370-500 mL) injection 100 mL 10-06 02:00: 00 10-06 01:10 :00 No [id number] 100mL 100 mL, Intravenou s, ONCE, 1 dose, On Mon10/05/22 at 2100, Routine [facility] acetaminoph en ADULT (OFIRMEV) injection 1,000 mg 10-05 19:00: 00 10-06 11:05 :00 No 1000mg 1,000 mg, IV Infusion, at 400 mL/hr Administer over 15 Minutes, Q8H, 3 doses, First dose (after last reorder) on Mon10/05/22 at 1400, Last dose on Mon10/06/22 at 0600, Routine
Indicatio n: Perioperat jackson Patient [facility] D5W 0.45% NaCl (1/2NS) 1 L + KCL 20 mEq 10-05 16:15: 00 10-07 14:15 :45 No IV Infusion, at 100 mL/hr, CONTINUOUS , Starting on Mon10/05/22 at 1115, Until Mon10/07/22 at 0915, Routine [facility] piperacilli n-tazobacta m (ZOSYN) 3.375 g [...] Abdominal< br>Duratio n of Therapy: 7 days [facility] tamsulosin (FLOMAX) capsule 0.4 mg 10-04 14:00: 00 Yes .4mg 0.4 mg, Oral, DAILY, First dose on Mon10/04/22 at 0900, Until Discontinu ed, Routine [facility] lactated ringers IV infusion 1,000 mL 10-04 12:15: 00 10-04 14:01 :50 No 1000mL at 999 mL/hr, 1,000 mL, Intravenou s, ONCE, 1 dose, On Mon10/04/22 at 0715, Routine [facility] acetaminoph en ADULT (OFIRMEV) injection 1,000 mg 10-04 03:00: 00 10-04 19:33 :00 No 1000mg 1,000 mg, IV Infusion, at 400 mL/hr Administer over 15 Minutes, Q8H, 3 doses, First dose (after last reorder) on Mon10/03/22 at 2200, Last dose on Mon10/04/22 at 1400, Routine
Indicatio n: Perioperat jackson Patient [facility] D5W 0.45% NaCl (1/2NS) 1 L + KCL 20 mEq 10-03 18:00: 00 10-05 16:00 :18 No IV Infusion, at 150 mL/hr, CONTINUOUS , Starting on Mon10/03/22 at 1300, Until Mon10/05/22 at 1100, Routine [facility] D5W 0.45% NaCl (1/2NS) 1 L + KCL 20 mEq 10-03 17:15: 00 10-03 17:49 :34 No IV Infusion, at 42 mL/hr, CONTINUOUS , Starting on Mon10/03/22 at 1215, Until Mon10/03/22 at 1249, Routine [facility] D5W 0.45% NaCl (1/2NS) 1 L + KCL 20 mEq 10-03 16:45: 00 10-03 17:09 :32 No IV Infusion, at 75 mL/hr, CONTINUOUS , Starting on Mon10/03/22 at 1145, Until Mon10/03/22 at 1209, Routine [facility] KCL (KLOR-CON M20) tablet 40 mEq 10-03 14:45: 00 10-03 14:50 :00 No 40meq 40 mEq, Oral, ONCE, 1 dose, On Mon10/03/22 at 0945, Routine [facility] methocarbam oL (ROBAXIN) injection 500 mg 10-02 19:00: 00 10-07 14:15 :45 No 500mg 500 mg, Intravenou s, Q8H, First dose on Mon10/02/22 at 1400, Until Discontinu ed, Routine [facility] acetaminoph en ADULT (OFIRMEV) injection 1,000 mg 10-02 19:00: 00 10-03 18:59 :00 No 1000mg 1,000 mg, IV Infusion, at 400 mL/hr Administer over 15 Minutes, Q8H, 3 doses, First dose (after last reorder) on Mon10/02/22 at 1400, Last dose on Mon10/03/22 at 0600, Routine
Indicatio n: Perioperat jackson Patient [facility] D5W 0.45% NaCl (1/2NS) 1 L + KCL 20 mEq 10-02 17:30: 00 10-03 16:43 :14 No IV Infusion, at 125 mL/hr, CONTINUOUS , Starting on Mon10/02/22 at 1230, Until Mon10/03/22 at 1143, Routine [facility] morpHINE (2 mg/mL) injection 2 mg 10-02 13:33: 31 Yes 2mg 2 mg, Slow IV Push, Q4HPRN, Starting on Mon10/02/22 at 0833, Until Discontinu ed, Routine, Pain (scale 7-10) [facility] piperacilli n-tazobacta m (ZOSYN) 3.375 g in [...] Abdominal< br>Duratio n of Therapy: 7 days [facility] piperacilli n-tazobacta m (ZOSYN) 3.375 g in NaCl 0.9% (NS) 100 mL MINI-BAG 10-01 16:15: 00 10-01 16:18 :00 No 3.375g 3.375 g, IV Piggyback, ONCE, 1 dose, On Mon10/01/22 at 1115, Administer over 30 Minutes, 100 mL
Reas on for Anti-Infec tive: Documented Infection< br>Documen wanda Infection Site: Abdominal< br>Duratio n of Therapy: 7 days [facility] acetaminoph en ADULT (OFIRMEV) injection 1,000 mg 10-01 03:00: 00 10-01 20:58 :00 No 1000mg 1,000 mg, IV Infusion, at 400 mL/hr Administer over 15 Minutes, Q8H, 3 doses, First dose (after last reorder) on Mon09/30/22 at 2200, Last dose on Mon10/01/22 at 1400, Routine
Indicatio n: Perioperat jackson Patient [facility] morpHINE 30 mg/30 mL (fixed dose) RESIZER OPERATOR injection 09-30 16:30: 00 Yes Patient Bolus Dose: 1 mg
Lock out Interval: 10 Minutes
Basal Rate: 0 mg/hr
F our Hour Dose Limit: 24 mg
Intr avenous, 30 mL, CONTINUOUS , Starting on Mon09/30/22 at 1130, Until Discontinu ed [facility] lactated ringers IV infusion 1,000 mL 09-30 15:30: 00 Yes 1000mL at 125 mL/hr, 1,000 mL, IV Infusion, CONTINUOUS , Starting on Mon09/30/22 at 1030, Until Discontinu ed, Routine [facility] naloxone (NARCAN) injection 0.1 mg 09-30 15:29: 12 Yes .1mg 0.1 mg, Slow IV Push, SEE-INSTRU CTIONS, Starting on Mon09/30/22 at 1029, Until Discontinu ed, Routine [facility] ipratropium -albuteroL (DUONEB) 0.5 mg-3 mg(2.5 mg base)/3 mL nebulizer solution 3 mL 09-30 13:00: 00 Yes 3mL 3 mL, Inhalation , Q6HA, First dose on Mon09/30/22 at 0800, Until Discontinu ed, Routine [facility] pantoprazol e (PROTONIX) injection 40 mg 09-30 08:00: 00 Yes 40mg 40 mg, Slow IV Push, Q24H, First dose on Mon09/30/22 at 0300, Until Discontinu ed [facility] fentaNYL PF (SUBLIMAZE) STD 2,500 mcg in [...] at maximum allowed dose, contact prescriber .
[facility] albumin (ALBUTEIN 5 %) 5 % injection 25 g 09-30 07:30: 00 09-30 06:46 :00 No 25g 25 g, IV Infusion, ONCE, 1 dose, On Mon09/30/22 at 0230, 500 mL
Sharla cation: SHOCK/IMPE NDING SHOCK [facility] midazolam (VERSED) STD 50mg in NaCl 0.9% [...] at maximum allowed dose, contact prescriber .
[facility] dexMEDEtomi dine 200 mcg in 0.9 [...] at maximum allowed dose, contact prescriber .
[facility] acetaminoph en ADULT (OFIRMEV) injection 1,000 mg 09-30 03:00: 00 09-30 18:37 :00 No 1000mg 1,000 mg, IV Infusion, at 400 mL/hr Administer over 15 Minutes, Q8H, 3 doses, First dose on Evonne 09/29/22 at 2200, Last dose on Mon09/30/22 at 1400, Routine
Indicatio n: Perioperat jackson Patient [facility] propofoL IV infusion 09-30 01:10: 57 09-30 [...] vials should be discarded after 12 hours.
[facility] midazolam (VERSED) injection 2 mg 09-30 00:21: 30 09-30 15:29 :52 No 2mg 2 mg, IV Push, Q2HPRN, Starting on Evonne 09/29/22 at 1921, Until Mon09/30/22 at 1029, Routine, Sedation to RASS score 0 to -1 [facility] PHENYLephri ne 1000 mcg/10 mL in 0.9% NaCl syringe 09-29 20:33: 00 09-29 23:20 :54 No Slow IV Push, CONTINUOUS PRN, Starting on Evonne 09/29/22 at 1533, Until Discontinu ed, Routine, Intra-op [facility] HYDROmorphO ne (DILAUDID) injection 09-29 19:36: 00 09-29 23:20 :54 No Slow IV Push, ONCE INTRA PROCEDURE, Starting on Evonne 09/29/22 at 1436, Until Discontinu ed, Routine, Intra-op [facility] methocarbam oL (ROBAXIN) injection 1,000 mg 09-29 19:00: 00 10-02 18:59 :00 No 1000mg 1,000 mg, Intravenou s, Q8H, 9 doses, First dose on Evonne 09/29/22 at 1400, Last dose on Mon10/02/22 at 0600, Routine [facility] dexamethaso ne (DECADRON PHOSPHATE) injection 09-29 18:44: 00 09-29 23:20 :54 No IV Push, ONCE INTRA PROCEDURE, Starting on Evonne 09/29/22 at 1344, Until Discontinu ed, Routine, Intra-op [facility] lactated ringers IV infusion 09-29 18:29: 00 09-29 23:20 :54 No IV Infusion, CONTINUOUS PRN, Starting on Evonne 09/29/22 at 1329, Until Discontinu ed, Routine, Intra-op [facility] FENTanyl PF (SUBLIMAZE (PF)) injection 09-29 18:29: 00 09-29 23:20 :54 No Slow IV Push, ONCE INTRA PROCEDURE, Starting on Evonne 09/29/22 at 1329, Until Discontinu ed, Routine, Intra-op [facility] rocuronium (ZEMURON) injection 09-29 18:29: 00 09-29 23:20 :54 No IV Push, ONCE INTRA PROCEDURE, Starting on Evonne 09/29/22 at 1329, Until Discontinu ed, Routine, Intra-op [facility] propofoL IV infusion 09-29 18:29: 00 09-29 23:20 :54 No Slow IV Push, ONCE INTRA PROCEDURE, Starting on Evonne 09/29/22 at 1329, Until Discontinu ed, Routine, Intra-op [facility] lidocaine 1% (XYLOCAINE) 100 mg/10 mL (1 %) injection 09-29 18:29: 00 09-29 23:20 :54 No Slow IV Push, ONCE INTRA PROCEDURE, Starting on Evonne 09/29/22 at 1329, Until Discontinu ed, Routine, Intra-op [facility] midazolam (VERSED) injection 09-29 18:21: 00 09-29 23:20 :54 No IV Push, ONCE INTRA PROCEDURE, Starting on Evonne 09/29/22 at 1321, Until Discontinu ed, Routine, Intra-op [facility] levETIRAcet am (KEPPRA) in NACL (ISO-OS) 1,000 mg/100 mL RTU 09-29 16:00: 00 Yes 1000mg 1,000 mg, IV Piggyback, Q12H, First dose on Evonne 09/29/22 at 1100, Until Discontinu ed, Administer over 15 Minutes, 100 mL [facility] piperacilli n-tazobacta m (ZOSYN) 3.375 g in NaCl 0.9% (NS) 100 mL MINI-BAG 09-29 15:58: 00 10-13 15:59 :00 No 3.375g 3.375 g, IV Piggyback, Q8H ABX, 42 doses, First dose (after last modificati on) on Evonne 09/29/22 at 1100, Last dose on Mon10/13/22 at 0300, Administer over 4 Hours, 100 mL
Reas on for Anti-Infec tive: Documented Infection< br>Documen wanda Infection Site: Abdominal< br>Duratio n of Therapy: [facility] 1,000 mL 09-29 13:45: 00 09-30 15:29 :52 No 1000mL at 75 mL/hr, 1,000 mL, IV Infusion, CONTINUOUS , Starting on Evonne 09/29/22 at 0845, Until Mon09/30/22 at 1029, Routine [facility] enoxaparin (LOVENOX) injection 30 mg 09-29 13:00: 00 Yes 30mg 30 mg, Subcutaneo us, Q12H, First dose on Mon09/29/22 at 0800, Until Discontinu ed, Routine [facility] iopamidol (ISOVUE 370-500 mL) injection 120 mL 09-29 10:06: 00 09-29 09:50 :00 No [id number] 120mL 120 mL, Intravenou s, ONCE, 1 dose, On Mon09/29/22 at 0515, Routine [facility] magnesium sulfate in water 4 gram/50 mL (8 %) IV Piggyback 4 g 09-29 09:30: 00 09-29 12:09 :00 No 4g 4 g, IV Piggyback, at 25 mL/hr Administer over 120 Minutes, ONCE, 1 dose, On Mon09/29/22 at 0430, Routine [facility] potassium phosphate 30 mmol in NaCl 0.9% (NS) 250 mL piggyback 09-29 09:30: 00 09-29 14:15 :00 No 30mmol 30 mmol, IV Piggyback, ONCE, 1 dose, On Mon09/29/22 at 0430, 250 mL [facility] NaCl 0.9% (NS) bolus infusion 1,000 mL 09-29 09:30: 00 09-29 10:12 :39 No 1000mL at 999 mL/hr, 1,000 mL, IV Piggyback, ONCE, 1 dose, On Mon09/29/22 at 0430, STAT [facility] acetaminoph en ADULT (OFIRMEV) injection 1,000 mg 09-29 07:00: 00 09-30 06:56 :11 No 1000mg 1,000 mg, IV Infusion, at 400 mL/hr Administer over 15 Minutes, Q8HA1, 3 doses, First dose (after last reorder) on Mon09/29/22 at 0200, Last dose on Mon09/29/22 at 1800, Routine
Indicatio n: Non-periop erative Patient
Approved by: Per Policy (NPO Status) [facility] lactated ringers IV infusion 1,000 mL 09-29 06:45: 00 09-29 06:01 :27 No 1000mL at 999 mL/hr, 1,000 mL, Intravenou s, ONCE, 1 dose, On Evonne 09/29/22 at 0145, Routine [facility] proMETHazin e (PHENERGAN) 25 mg in NS 50 mL IV piggyback (CNR) 09-29 05:45: 00 09-29 05:56 :00 No 25mg 25 mg, IV Piggyback, at 200 mL/hr Administer over 15 Minutes, ONCE, 1 dose, On Evonne 09/29/22 at 0045, Routine [facility] ondansetron (ZOFRAN (PF)) injection 4 mg 09-29 03:56: 10 Yes 4mg 4 mg, Slow IV Push, Q6HPRN, Nausea and Vomiting (N/V), Starting on Mon09/28/22 at 2256
Do ses of ondansetro n 16 mg and above need to be administer ed via IV piggyback. For Dose >=24mg ECG monitoring is advisable.
[facility] acetaminoph en ADULT (OFIRMEV) injection 1,000 mg 09-28 16:00: 00 09-29 01:16 :00 No 1000mg 1,000 mg, IV Infusion, at 400 mL/hr Administer over 15 Minutes, Q12H, 2 doses, First dose on Mon09/28/22 at 1100, Last dose on Mon09/28/22 at 2000, Routine
Indicatio n: Non-periop erative Patient
Approved by: Per Policy (NPO Status) [facility] levETIRAcet am (KEPPRA) tablet 1,000 mg 09-28 15:45: 00 09-29 15:59 :33 No 1000mg 1,000 mg, Oral, BID, First dose (after last modificati on) on Mon09/28/22 at 1045, Until Discontinu ed, Routine [facility] pantoprazol e (PROTONIX) EC tablet 40 mg 09-28 14:00: 00 09-30 06:56 :11 No 40mg 40 mg, Oral, DAILY, First dose on Mon09/28/22 at 0900, Until Discontinu ed, Routine
Indicatio n for use: None of the above [facility] lactated ringers IV infusion 1,000 mL 09-28 12:15: 00 09-28 13:56 :48 No 1000mL at 999 mL/hr, 1,000 mL, IV Infusion, ONCE, 1 dose, On Mon09/28/22 at 0715, STAT [facility] lactated ringers IV infusion 1,000 mL 09-28 11:30: 00 09-28 17:24 :34 No 1000mL at 125 mL/hr, 1,000 mL, IV Infusion, CONTINUOUS , Starting on Mon09/28/22 at 0630, Until Mon09/28/22 at 1224, Routine [facility] morpHINE (2 mg/mL) injection 2 mg 09-28 11:23: 47 09-29 13:38 :47 No 2mg 2 mg, Slow IV Push, Q6HPRN, Starting on Mon09/28/22 at 0623, Until Evonne 09/29/22 at 0838, Routine, Pain (scale 7-10) [facility] traMADoL (ULTRAM) tablet 50 mg 09-28 11:23: 34 09-29 13:38 :47 No 50mg 50 mg, Oral, Q6HPRN, Starting on Mon09/28/22 at 0623, Until Evonne 09/29/22 at 0838, Routine, Pain (scale 4-6) [facility] iopamidol (ISOVUE 370-500 mL) injection 80 mL 09-28 10:53: 00 09-28 10:40 :00 No [id number] 80mL 80 mL, Intravenou s, ONCE, 1 dose, On Mon09/28/22 at 0600, Routine [facility] lactated ringers IV infusion 1,000 mL 09-28 10:30: 00 09-28 11:15 :00 No 1000mL at 999 mL/hr, 1,000 mL, Intravenou s, ONCE, 1 dose, On Mon09/28/22 at 0530, STAT [facility] NaCl 0.9% (NS) bolus infusion 1,000 mL 09-28 09:30: 00 09-28 09:30 :00 No 1000mL at 999 mL/hr, 1,000 mL, IV Infusion, ONCE, 1 dose, On Mon09/28/22 at 0430, STAT [facility] iopamidol (ISOVUE 370-500 mL) injection 100 mL 09-28 09:00: 00 09-28 08:04 :00 No [id number] 100mL 100 mL, Intravenou s, ONCE, 1 dose, On Mon09/28/22 at 0400, Routine [facility] multivit,th x,calcium,i radha,mins (MULTIVITAM IN AND MINERAL ORAL) 10-02 20:54: 50 10-02 00:00 :00 No Take by mouth. [facility] multivit,th x,calcium,i radha,mins (MULTIVITAM IN AND MINERAL ORAL) 08 21:03: 07 Yes Take by mouth. [facility] levETIRAcet am 1,000 mg tablet 07-10 00:00: 00 Yes 1000mg Take 1,000 mg by mouth 2 (two) times daily. [facility] Immunizations Ordered Immunization Name Filled Immunization Name Date Status Comments Source TD Pres-Free 2022-09-28 00:00:00 Completed [facility] TD Pres-Free 2022-09-28 00:00:00 Completed [facility] TD Pres-Free 2022-09-28 00:00:00 Completed [facility] TD Pres-Free 2022-09-28 00:00:00 Completed [facility] TD Pres-Free 2022-09-28 00:00:00 Completed [facility] TD Pres-Free 2022-09-28 00:00:00 Completed [facility] TD Pres-Free 2022-09-28 00:00:00 Completed [facility] TD Pres-Free 2022-09-28 00:00:00 Completed [facility] TD Pres-Free 2022-09-28 00:00:00 Completed [facility] TD Pres-Free 2022-09-28 00:00:00 Completed [facility] TD Pres-Free 2022-09-28 00:00:00 Completed [facility] TD Pres-Free 2022-09-28 00:00:00 Completed [facility] TD Pres-Free 2022-09-28 00:00:00 Completed [facility] TD Pres-Free 2022-09-28 00:00:00 Completed [facility] TD Pres-Free 2022-09-28 00:00:00 Completed [facility] TD Pres-Free 2022-09-28 00:00:00 Completed [facility] TD Pres-Free 2022-09-28 00:00:00 Completed [facility] TD Pres-Free 2022-09-28 00:00:00 Completed [facility] TD Pres-Free Unknown [facility] TD Pres-Free Unknown Com[facility] TD Pres-Free Unknown Completed [facility] Vital Signs Vital Name Observation Time Observation Value Comments S ource Body temperature 2023-02-16 15:38:00 36.56 Katia [facility] Body weight 2023-02-16 15:38:00 116.574 kg [facility] BMI 2023-02-16 15:38:00 34.86 kg/m2 [facility] Systolic blood pressure 2022-11-28 19:10:00 135 mm[Hg] [facility] Diastolic blood pressure 2022-11-28 19:10:00 76 mm[Hg] [facility] Heart rate 2022-11-28 19:10:00 97 /min [facility] acute hospital Body temperature 2022-11-28 19:10:00 36.28 Katia [facility] Respiratory rate 2022-11-28 19:10:00 18 /min [facility] Body height 2022-11-28 19:10:00 182.9 cm [facility] Body weight 2022-11-28 19:10:00 112.719 kg [facility] BMI 2022-11-28 19:10:00 33.70 kg/m2 [facility] Oxygen saturation in Arterial blood by Pulse oximetry 2022-11-28 19:10:00 97 /min [facility] Body temperature 2022-11-17 15:20:00 36.5 Katia [facility] Body weight 2022-11-17 15:20:00 111.403 kg [facility] 2022-11-17 15:20:00 33.31 kg/m2 [facility] Body temperature 2022-10-27 15:24:00 36.44 Katia [facility] Body weight 2022-10-27 15:24:00 108.636 kg [facility] BMI 2022-10-27 15:24:00 32.48 kg/m2 [facility] Systolic blood pressure 2022-10-18 19:24:00 118 mm[Hg] [facility] Diastolic blood pressure 2022-10-18 19:24:00 68 mm[Hg] [facility] Heart rate 2022-10-18 19:24:00 92 /min [facility] Body temperature 2022-10-18 19:24:00 36.28 Katia [facility] Respiratory rate 2022-10-18 19:24:00 14 /min [facility] Body height 2022-10-18 19:24:00 182.9 cm [facility] Body weight 2022-10-18 19:24:00 106.595 kg [facility] BMI 2022-10-18 19:24:00 31.87 kg/m2 [facility] Oxygen saturation in Arterial blood by Pulse oximetry 2022-10-18 19:24:00 96 /min [facility] Systolic blood pressure 2022-10-09 21:51:00 120 mm[Hg] [facility] Diastolic blood pressure 2022-10-09 21:51:00 59 mm[Hg] [facility] Heart rate 2022-10-09 21:51:00 53 /min Un[facility] Body temperature 2022-10-09 21:51:00 36.78 Katia [facility] Oxygen saturation in Arterial blood by Pulse oximetry 2022-10-09 21:51:00 99 /min [facility] Respiratory rate 2022-10-09 17:00:00 20 /min [facility] Body weight 2022-10-07 01:00:00 112.175 kg [facility] BMI 2022-10-07 01:00:00 33.54 kg/m2 [facility] Body height 2022-09-28 12:15:07 182.9 cm [facility] Respiratory rate 2022-09-29 22:47:00 19 /min [facility] Systolic blood pressure 2022-09-29 17:00:00 122 mm[Hg] [facility] Diastolic blood pressure 2022-09-29 17:00:00 64 mm[Hg] [facility] Heart rate 2022-09-29 17:00:00 116 /min [facility] Body temperature 2022-09-29 17:00:00 37.89 Katia [facility] Respiratory rate 2022-09-29 17:00:00 22 /min [facility] Oxygen saturation in Arterial blood by Pulse oximetry 2022-09-29 17:00:00 96 /min [facility] Body height 2022-09-28 12:15:07 182.9 cm [facility] Body weight 2022-09-28 10:21:49 128.368 kg [facility] BMI 2022-09-28 10:21:49 38.38 kg/m2 [facility] Body temperature 2022-09-28 09:30:00 37.28 Katia [facility] Heart rate 2022-09-28 09:24:00 98 /min Un[facility] Respiratory rate 2022-09-28 09:24:00 30 /min [facility] Oxygen saturation in Arterial blood by Pulse oximetry 2022-09-28 09:24:00 96 /min [facility] Systolic blood pressure 2022-09-28 09:20:00 104 mm[Hg] [facility] Diastolic blood pressure 2022-09-28 09:20:00 59 mm[Hg] [facility] Body height 2022-09-28 07:15:00 177.8 cm [facility] Body weight 2022-09-28 07:15:00 128.368 kg [facility] BMI 2022-09-28 07:15:00 40.61 kg/m2 [facility] Systolic blood pressure 2020-10-02 20:33:00 113 mm[Hg] [facility] Diastolic blood pressure 2020-10-02 20:33:00 66 mm[Hg] [facility] Heart rate 2020-10-02 20:33:00 84 /min [facility] acute hospital Body height 2020-10-02 20:33:00 177.8 cm [facility] Body weight 2020-10-02 20:33:00 128.368 kg [facility] BMI 2020-10-02 20:33:00 40.61 kg/m2 [facility] Procedures Procedure Date / Time Performed Performing Clinician Source XR TOES 2 VW RIGHT 2023-02-16 15:07:08 Gómez Peters [facility] XR TOES 2 VW RIGHT 2022-11-17 15:15:00 Gómez Peters [facility] XR TOES 2 VW RIGHT 2022-10-27 14:50:00 Gómez Peters [facility] STATEMENT OF PATIENT FINANCIAL RESPONSIBILITY 2022-10-27 05:01:00 Doctor Unassigned, [place] [facility] CONSENT/REFUSAL FOR DIAGNOSIS AND TREATMENT 2022-10-18 19:04:14 Doctor Unassigned, [place] [facility] PHOSPHORUS 2022-10-09 10:11:00 Kishore Castro [facility] MAGNESIUM 2022-10-09 10:11:00 Kishore Castro [facility] BASIC METABOLIC PANEL (NA, K, CL, CO2, GLUCOSE, BUN, CREATININE, CA) 2022-10-09 10:11:00 Jairon Avilez [facility] CBC WITH DIFF 2022-10-09 10:11:00 Jairon ojeda [facility] PHOSPHORUS 2022-10-08 09:50:00 Jairon ojeda [facility] MAGNESIUM 2022-10-08 09:50:00 Jairon ojeda [facility] BASIC METABOLIC PANEL (NA, K, CL, CO2, GLUCOSE, BUN, CREATININE, CA) 2022-10-08 09:50:00 Jairon Avilez [facility] CBC WITH DIFF 2022-10-08 09:50:00 Jairon ojeda [facility] PHOSPHORUS 2022-10-07 10:13:00 Jairon ojeda [facility] MAGNESIUM 2022-10-07 10:13:00 Jairon ojeda [facility] BASIC METABOLIC PANEL (NA, K, CL, CO2, GLUCOSE, BUN, CREATININE, CA) 2022-10-07 10:13:00 Jairon Avilez [facility] CBC WITH DIFF 2022-10-07 10:13:00 Jairon ojeda [facility] PHOSPHORUS 2022-10-06 09:37:00 Jairon ojeda [facility] MAGNESIUM 2022-10-06 09:37:00 Jairon ojeda [facility] BASIC METABOLIC PANEL (NA, K, CL, CO2, GLUCOSE, BUN, CREATININE, CA) 2022-10-06 09:37:00 Jairon Avilez [facility] CBC WITH DIFF 2022-10-06 09:37:00 Jairon ojeda [facility] CT ABDOMEN PELVIS W CONTRAST 2022-10-06 02:16:35 Kraig Bravo [facility] XR KUB 2022-10-05 11:27:00 Domingo Merino [facility] PHOSPHORUS 2022-10-05 10:56:00 Den, [facility] MAGNESIUM 2022-10-05 10:56:00 Den, [facility] BASIC METABOLIC PANEL (NA, K, CL, CO2, GLUCOSE, BUN, CREATININE, CA) 2022-10-05 10:56:00 [facility]FF 2022-10-05 10:56:00 [facility] 2022-10-04 08:24:00 Viri Bravo [facility] MAGNESIUM 2022-10-04 08:24:00 Viri Bravo [facility] BASIC METABOLIC PANEL (NA, K, CL, CO2, GLUCOSE, BUN, CREATININE, CA) 2022-10-04 08:24:00 Hadley, [facility] CBC WITH DIFF 2022-10-04 08:24:00 Hadley [facility] XR KUB 2022-10-03 19:02:00 Simba Curiel [facility] PHOSPHORUS 2022-10-03 10:31:00 [facility] 2022-10-03 10:31:00 [facility] BASIC METABOLIC PANEL (NA, K, CL, CO2, GLUCOSE, BUN, CREATININE, CA) 2022-10-03 10:31:00 Hadley, [facility] CBC WITH DIFF 2022-10-03 10:31:00 Hadley, [facility] PHOSPHORUS 2022-10-02 07:46:00 Domingo Merino [facility] MAGNESIUM 2022-10-02 07:46:00 Domingo Merino [facility] IONIZED CALCIUM 2022-10-02 07:46:00 Domingo Merino [facility] BASIC METABOLIC PANEL (NA, K, CL, CO2, GLUCOSE, BUN, CREATININE, CA) 2022-10-02 07:46:00 Gerhard Merino [facility] CBC WITHOUT DIFF 2022-10-02 07:46:00 Neri Merino [facility] PHOSPHORUS 2022-10-01 09:57:00 AngeliqueDomingo [facility] MAGNESIUM 2022-10-01 09:57:00 AngleiqueDomingo [facility] IONIZED CALCIUM 2022-10-01 09:57:00 AngeliqueDomingo [facility] BASIC METABOLIC PANEL (NA, K, CL, CO2, GLUCOSE, BUN, CREATININE, CA) 2022-10-01 09:57:00 AngeliqueGerhard [facility] CBC WITHOUT DIFF 2022-10-01 09:57:00 AngeliqueNeri [facility] XR CHEST 1 VW 2022-09-30 10:04:00 AngeliqueDomingo [facility] XR CHEST 1 VW 2022-09-30 10:04:00 AngeliqueDomingo [facility] PHOSPHORUS 2022-09-30 09:03:00 AngeliqueDomingo jacobs [facility] MAGNESIUM 2022-09-30 09:03:00 NageliqueDomingo [facility] IONIZED CALCIUM 2022-09-30 09:03:00 AngeliqueDomingo [facility] BASIC METABOLIC PANEL (NA, K, CL, CO2, GLUCOSE, BUN, CREATININE, CA) 2022-09-30 09:03:00 Angelique, [place] [facility] LIPID PANEL (75819)(TOTAL CHOLESTEROL, TRIGLYCERIDES, HDL) 2022-09-30 09:03:00 Hedy Carroll [facility] CBC WITHOUT DIFF 2022-09-30 09:03:00 AngeliqueNeri [facility] PHOSPHORUS 2022-09-30 09:03:00 AngeliqueDomingo [facility] MAGNESIUM 2022-09-30 09:03:00 AngeliqueDomingo [facility] IONIZED CALCIUM 2022-09-30 09:03:00 AngeliqueDomingo jacobs [facility] BASIC METABOLIC PANEL (NA, K, CL, CO2, GLUCOSE, BUN, CREATININE, CA) 2022-09-30 09:03:00 AngeliqueGerhard [facility] LIPID PANEL (55890)(TOTAL CHOLESTEROL, TRIGLYCERIDES, HDL) 2022-09-30 09:03:[address] [facility] CBC WITHOUT DIFF 2022-09-30 09:03:00 AngeliqueNeri [facility] AC PANEL 20 + LACTIC ACID 2022-09-30 06:23:[address] [facility] AC PANEL 20 + LACTIC ACID 2022-09-30 06:23:[address] [facility] XR CHEST 1 VW 2022-09-29 23:33:00 AngeliqueDomingo [facility] XR CHEST 1 VW 2022-09-29 23:33:00 AngeliqueDomingo [facility] PHOSPHORUS 2022-09-29 23:14:00 AngeliqueDomingo [facility] MAGNESIUM 2022-09-29 23:14:00 AngeliqueDomingo [facility] HEPATIC FUNCTION PANEL (96776) (ALB,T.PRO,BILI T,BU/BC,ALT,AST,ALK PHOS) 2022-09-29 23:14:00 Angelique, [place] [facility] BASIC METABOLIC PANEL (NA, K, CL, CO2, GLUCOSE, BUN, CREATININE, CA) 2022-09-29 23:14:00 Angelique, [facility] CBC WITH DIFF 2022-09-29 23:14:00 AngeliqueDomingo jacobs [facility] PROTHROMBIN TIME / INR 2022-09-29 23:14:00 Scrug gs, [facility] ACTIVATED PARTIAL THRMPLAS KYLE 2022-09-29 23:14:00 Angelique, [facility] FIBRINOGEN 2022-09-29 23:14:00 AngeliqueDomingo jacobs [facility] AC PANEL 20 + LACTIC ACID 2022-09-29 23:14:00 Sc ruggs, [facility] PHOSPHORUS 2022-09-29 23:14:00 AngeliqueDomingo jacobs [facility] MAGNESIUM 2022-09-29 23:14:00 AngeliqueDomingo [facility] HEPATIC FUNCTION PANEL (47093) (ALB,T.PRO,BILI T,BU/BC,ALT,AST,ALK PHOS) 2022-09-29 23:14:00 Angelique, [facility] BASIC METABOLIC PANEL (NA, K, CL, CO2, GLUCOSE, BUN, CREATININE, CA) 2022-09-29 23:14:00 Angelique, [facility] CBC WITH DIFF 2022-09-29 23:14:00 Domingo Merino [facility] PROTHROMBIN TIME / INR 2022-09-29 23:14:00 Scrug gs, [facility] ACTIVATED PARTIAL THRMPLAS KYLE 2022-09-29 23:14:00 Angelique, [facility] FIBRINOGEN 2022-09-29 23:14:00 AngeliqueDomingo jacobs [facility] AC PANEL 20 + LACTIC ACID 2022-09-29 23:14:00 Sc ruggs, [facility] ABG+COOX+NA+K+GLU+CA2+ 2022-09-29 22:02:00 James Mccall [facility] SURGICAL PATHOLOGY EXAM 2022-09-29 21:41:00 [facility] ABG+COOX+NA+K+GLU+CA2+ 2022-09-29 20:08:00 James Mccall [facility] ARTERIAL LINE 2022-09-29 18:59:00 Sabas Zhang [facility] INTUBATION 2022-09-29 18:33:00 [facility]as [facility] DIAGNOSTIC LAPAROSCOPY 2022-09-29 17:46:00 Person, Merlin carranza [facility] EXPLORATORY LAPAROTOMY 2022-09-29 17:46:00 Person, Merlin carranza [facility] OPEN APPENDECTOMY 2022-09-29 17:46:00 [facility] SMALL INTESTINE 2022-09-29 17:46:00 Person, Simba [facility] DIAGNOSTIC LAPAROSCOPY 2022-09-29 17:46:00 Person, Merlin carranza [facility] EXPLORATORY LAPAROTOMY 2022-09-29 17:46:00 Person, Merlin carranza [facility] OPEN APPENDECTOMY 2022-09-29 17:46:00 [facility], [facility] INTESTINE 2022-09-29 17:46:00 Person, Simba [facility] XR ABDOMEN 1 2022-09-29 15:15:00 Denise Sanchez [facility] XR ABDOMEN 1 2022-09-29 15:15:[address] [facility] ANGIOGRAM ABDOMEN/PELVIS 2022-09-29 10:05:36 Yadiel [facility] CT ANGIOGRAM ABDOMEN/PELVIS 2022-09-29 10:05:36 Yadiel [facility] XR CHEST 1 2022-09-29 08:58:00 Fortich, [facility] KUB 2022-09-29 08:58:00 Fortich, [facility]ena [facility] CHEST 1 2022-09-29 08:58:00 Fortich, [facility] KUB 2022-09-29 08:58:00 Fortich, [facility] PHOSPHORUS 2022-09-29 06:10:00 Domingo Merino [facility] MAGNESIUM 2022-09-29 06:10:00 Domingo Merino [facility] BASIC METABOLIC PANEL (NA, K, CL, CO2, GLUCOSE, BUN, CREATININE, CA) 2022-09-29 06:10:00 AngeliqueGerhard steve [facility] CBC WITHOUT DIFF 2022-09-29 06:10:00 Neri Merino [facility] PHOSPHORUS 2022-09-29 06:10:00 Domingo Merion [facility] MAGNESIUM 2022-09-29 06:10:00 Domingo Merino [facility] BASIC METABOLIC PANEL (NA, K, CL, CO2, GLUCOSE, BUN, CREATININE, CA) 2022-09-29 06:10:00 AngeliqueGerhard steve [facility] CBC WITHOUT DIFF 2022-09-29 06:10:00 AngeliqueNeri steve [facility] URINALYSIS 2022-09-29 06:05:00 [facility] URINALYSIS 2022-09-29 06:05:00 [facility] CBC WITHOUT DIFF 2022-09-28 16:22:00 [facility] KEPPR[facility] (LEVETIRACETAM) 2022-09-28 16:22:00 Fabian Narayan [facility] CBC WITHOUT DIFF 2022-09-28 16:22:00 [facility] KEPPRA (LEVETIRACETAM) 2022-09-28 16:22:00 Fabian Narayan [facility] XR FEMUR 2 VW BILATERAL 2022-09-28 11:43:18 Geoff Cotto [facility] XR KNEE 3 VW BILATERAL 2022-09-28 11:43:18 [facility] PELVIS <3 VW 2022-09-28 11:43:18 [facility] SHOULDER <2 VW LEFT 2022-09-28 11:43:18 [facility] FEMUR 2 VW BILATERAL 2022-09-28 11:43:18 [facility] KNEE 3 VW BILATERAL 2022-09-28 11:43:18 [facility] PELVIS <3 VW 2022-09-28 11:43:18 [facility] SHOULDER <2 VW LEFT 2022-09-28 11:43:18 [facility] CT ANGIOGRAM NECK 2022-09-28 10:53:00 Dixon Cotto i [facility] CT ANGIOGRAM NECK 2022-09-28 10:53:00 Dixon Cotto i [facility] PROTHROMBIN TIME / INR 2022-09-28 10:29:00 James Mccall [facility] ACTIVATED PARTIAL THRMPLAS KYLE 2022-09-28 10:29:00 Claudy Mccall [facility] HB ABO GROUPING 2022-09-28 10:29:00 Cal [facility] PROTHROMBIN TIME / INR 2022-09-28 10:29:00 James Mccall [facility] ACTIVATED PARTIAL THRMPLAS KYLE 2022-09-28 10:29:00 Cal Claudy [facility] HB ABO GROUPING 2022-09-28 10:29:00 Claudy [facility] TROPONIN I 2022-09-28 07:39:00 Master [facility] COMP. METABOLIC PANEL (95901) 2022-09-28 07:39:00 Master Bowen [facility] CBC WITH DIFF 2022-09-28 07:39:00 Master Bowen [facility] PROTHROMBIN TIME / INR 2022-09-28 07:39:00 Peng Bowen [facility] ACTIVATED PARTIAL THRMPLAS KYLE 2022-09-28 07:39:00 Master Bowen [facility] HB ABO GROUPING 2022-09-28 07:39:00 [facility]-TERMINAL PRO-BNP 2022-09-28 07:39:00 Master Bowen [facility] EMERGENCY DEPARTMENT DOCUMENTS 2022-09-28 05:01:00 Doctor Unassigned, [place] [facility] HOSPITAL ADMISSION 2022-09-28 05:01:00 Doctor Un assigned, [place] [facility] AUTHORIZATION FOR RELEASE OF PHI 2021-12-02 05:01:00 Doctor Unassigned, [place] [facility] AUTHORIZATION FOR RELEASE OF PHI 2021-11-18 05:01:00 Doctor Unassigned, [place] [facility] INSURANCE CORRESPONDENCE 2021-11-04 05:01:00 Doc shelbi Unassigned, [place] [facility] AUTHORIZATION FOR RELEASE OF PHI 2021-10-06 05:01:00 Doctor Unassigned, [place] [facility] AUTHORIZATION FOR RELEASE OF PHI 2021-08-27 05:01:00 Doctor Unassigned, [place] [facility] ASSIGNMENT OF BENEFITS 2020-10-02 20:27:08 Docto r Unassigned, [place] [facility] Encounters Start Date/Time End Date/Time Encounter Type Admission Type Attending [facility] Facility Care Department Encounter ID Source 2023-02-16 08:44:25 2023-02-16 23:59:00 Hospital Encounter Srini Peters [facility] 1.2.840.114 350.1.13.10 4.2.7.2.686 [id number] [facility] 2023-02-16 08:40:00 2023-02-16 10:34:58 Outpatient R SRINI PETERS [facility] [id number] [facility] 2023-02-16 08:40:00 2023-02-16 09:00:00 Office Visit Srini Peters [facility] 1.2.840.114 350.1.13.10 4.2.7.2.686 [id number] [facility] 2022-12-29 10:00:00 2022-12-29 10:00:00 Outpatient R SRINI PETERS [facility] [id number] [facility] 2022-11-28 14:15:00 2022-11-28 14:45:00 Office Visit Brian Gudino [facility] 1..840.114 350.1.13.10 4.2.7.2.686 [id number] [facility] 2022-11-28 14:15:00 2022-11-28 14:15:00 Outpatient R BRIAN GUDINO [facility] [id number] [facility] 2022-11-17 10:04:29 2022-11-17 23:59:00 Outpatient R SRINI PETERS [facility] [id number] [facility] 2022-11-17 10:04:29 2022-11-17 23:59:00 Hospital Encounter Srini Peters [facility] 1.2.840.114 350.1.13.10 4.2.7.2.686 [id number] [facility] 2022-11-17 10:00:00 2022-11-17 16:55:56 Office Visit Srini Peters [facility] 1.2.840.114 350.1.13.10 4.2.7.2.686 [id number] [facility] 2022-11-17 00:00:00 2022-11-17 00:00:00 Letter (Out) Srini Peters [facility] 1.2.840.114 350.1.13.10 4.2.7.2.686 [id number] [facility] 2022-10-27 09:38:55 2022-10-27 23:59:00 Outpatient R VAIBHAV SRINI [facility] [id number] [facility] 2022-10-27 09:38:55 2022-10-27 23:59:00 Hospital Encounter Srini Peters [facility] 1.2.840.114 350.1.13.10 4.2.7.2.686 [id number] [facility] 2022-10-27 10:00:00 2022-10-27 11:05:55 Office Visit Srini Peters [facility] 1.2.840.114 350.1.13.10 4.2.7.2.686 [id number] [facility] 2022-10-18 14:30:00 2022-10-18 14:45:00 Office Visit Service/Gen surg, Surgery C Moisés [facility] 1.2.840.114 350.1.13.10 4.2.7.2.686 [id number] [facility] 2022-10-18 14:30:00 2022-10-18 14:30:00 Outpatient R PERSON, [facility] [id number] [facility] 2022-10-18 00:00:00 2022-10-18 00:00:00 Orders Only Doctor Unassigned, [place] [facility] 1.2.840.114 350.1.13.10 4.2.7.2.686 [id number] [facility] 2022-10-11 00:00:00 2022-10-11 00:00:00 Transition of Care Alison Toney [facility] 1.2.840.114 350.1.13.10 4.2.7.2.686 [id number] [facility] 2022-09-28 05:21:00 2022-10-09 18:31:00 Hospital Encounter Claudy Mccall Michael [facility] 1.2.840.114 350.1.13.10 4.2.7.2.686 [id number] [facility] 2022-09-29 13:06:00 2022-09-29 18:20:00 Anesthesia Event Sabas Zhang Daniel [facility] 1.2.840.114 350.1.13.10 4.2.7.2.686 [id number] [facility] 2022-09-29 11:40:00 2022-09-29 13:27:00 Surgery Person, [facility] 1.2.840.114 350.1.13.10 4.2.7.2.686 [id number] [facility] 2022-09-28 02:26:00 2022-09-28 04:30:00 Emergency Matser Bowen [facility] 1.2.840.114 350.1.13.10 4.2.7.2.686 [id number] [facility] 2022-09-28 02:26:00 2022-09-28 04:30:00 Emergency X MASTER BOWEN [facility] ERT [id number] [facility] 2022-09-28 02:26:00 2022-09-28 04:30:00 Emergency X MASTER BOWEN [facility] ERT [id number] [facility] 2021-12-02 00:00:00 2021-12-02 00:00:00 Orders Only Doctor Unassigned, [place] [facility] 1.2.840.114 350.1.13.10 4.2.7.2.686 [id number] [facility] 2021-11-18 00:00:00 2021-11-18 00:00:00 Orders Only Doctor Unassigned, [place] [facility] 1.2.840.114 350.1.13.10 4.2.7.2.686 [id number] [facility] 2021-11-04 00:00:00 2021-11-04 00:00:00 Orders Only Doctor Unassigned, [place] [facility] 1.2.840.114 350.1.13.10 4.2.7.2.686 [id number] [facility] 2021-10-06 00:00:00 2021-10-06 00:00:00 Orders Only Doctor Unassigned, [place] [facility] 1.2.840.114 350.1.13.10 4.2.7.2.686 [id number] [facility] 2021-08-27 00:00:00 2021-08-27 00:00:00 Orders Only Doctor Unassigned, [place] [facility] 1.2.840.114 350.1.13.10 4.2.7.2.686 [id number] [facility] 2021-07-19 00:00:00 2021-07-19 00:00:00 Telephone Tc Arias [facility] 1.114 350.1.13.10 4.2.7.2.686 [id number] [facility] 2020-10-02 16:00:00 2020-10-02 16:00:00 Outpatient R TC ARIAS [facility] [id number] [facility] 2020-10-02 15:28:34 2020-10-02 15:43:34 Office Visit Tc [facility] 1.114 350.1.13.10 4.2.7.2.686 [id number] [facility] 2020-10-02 00:00:00 2020-10-02 00:00:00 Orders Only Doctor Unassigned, [place] [facility] 1.114 350.1.13.10 4.2.7.2.686 [id number] [facility] 2019-11-04 00:00:00 2019-11-04 00:00:00 Telephone [facility]getalashaymas[facility] 1.114 350.1.13.10 4.2.7.2.686 [id number] 2019-11-04 00:00:00 2019-11-04 00:00:00 Telephone MulugetaTc [facility] 1.114 350.1.13.10 4.2.7.2.686 [id number] [facility] 2019-08-09 16:15:00 2019-08-09 16:15:00 Outpatient TC COOK [facility] [id number] [facility] 2019-08-09 08:08:51 2019-08-09 08:38:51 Telemedici ne Visit Tc Arias [facility] 1.114 350.1.13.10 4.2.7.2.686 [id number] 2019-08-09 08:08:51 2019-08-09 08:38:51 Telemedici ne Visit Tc Arias [facility] Jimmy Pak [facility] 1.2.840.114 350.1.13.10 [phone] [id number] [facility] Results Test Description Test Time Test Comments Results Result Co mments Source [facility] (NA, K, CL, CO2, GLUCOSE, BUN, CREATININE, CA)2022-10-09 10:52:53* Test Item Value Reference Range Interpretation Comme nts NA (test code = 4607524618) 137 mmol/L 135-145 K (test code = 0922073573) 3.7 mmol/L 3.5-5.0 CL (test code = 7027272857) 99 mmol/L 98-108 CO2 TOTAL (test code = 9983834839) 25 mmol/L 23-31 AGAP (test code = 5591358459) 13 2-16 BUN (test code = 2071539876) 8 mg/dL 7-23 GLUCOSE (test code = 2725397870) 100 mg/dL 70-110 CREATININE (test code = 1622243167) 0.65 mg/dL 0.60-1.25 CALCIUM (test code = 4327651169) 8.9 mg/dL 8.6-10.6 eGFR (test code = 0620698002) 152.2 mL/min/1.73m2 ROLAND (test code = ROLAND) [...] or urine or abnormalities in imaging tests). [facility] 10:52:53* Test Item Value Reference Range Interpretation Comme nts MAGNESIUM (test code = 4491660400) 1.9 mg/dL 1.7-2.4 Lab Interpretation (test cod e = 92702-9) Normal [facility]09 10:52:53* Test Item Value Reference Range Interpretation Comme nts PHOSPHORUS (test code = 7841784777) 4.3 mg/dL 2.5-5.0 Lab Interpretation (test cod e = 19987-1) Normal [facility] (NA, K, CL, CO2, GLUCOSE, BUN, CREATININE, CA)2022-10-07 11:43:58* Test Item Value Reference Range Interpretation Comme nts NA (test code = 1330531333) 133 mmol/L 135-145 L K (test code = 9236846829) 4.1 mmol/L 3.5-5.0 CL (test code = 2916744127) 101 mmol/L 98-108 CO2 TOTAL (test code = 9829299494) 25 mmol/L 23-31 AGAP (test code = 6173397160) 7 2-16 BUN (test code = 3817337795) 7 mg/dL 7-23 GLUCOSE (test code = 2768923802) 103 mg/dL 70-110 CREATININE (test code = 2745968413) 0.70 mg/dL 0.60-1.25 CALCIUM (test code = 0095223078) 8.7 mg/dL 8.6-10.6 eGFR (test code = 2763422140) 139.8 mL/min/1.73m2 ROLAND (test code = ROLAND) [...] imaging tests). Lab Interpretation (test code = 51949-4) Abnormal [facility] WITH KYSU1815-60-09 11:21:47* Test Item Value Reference Range Interpretation Comme nts WBC (test code = 6690-2) 8.66 See_Comment [Automated [employer]onew] The system which generated this result transmitted reference range: 4.20 - 10.70 10*3/?L. The reference range was not used to interpret this result as normal/abnormal. RBC (test code = 789-8) 3.92 See_Comment L [Automated [employer]] The system which generated this result transmitted [...] 32.6 g/dL 31.2-35.0 RDW-SD (test code = 43693-8) 44.0 fL 38.5-51.6 RDW-CV (test code = 788-0) 14.3 % 12.1-15.4 PLT (test code = 777-3) 389 See_Comment H [Automated messa ge] The system which generated this result transmitted reference range: 150 - 328 10*3/?L. The reference range was not used to interpret this result as normal/abnormal. MPV (test code = 87605-2) 10.0 fL 9.8-13.0 NRBC/100 WBC (test code = 4431113051) 0.0 See_Comment [Automated [employer] ssage] The system which generated this result transmitted reference range: 0.0 - 10.0 /100 WBCs. The reference range was not used to interpret this result as normal/abnormal. NRBC x10^3 (test code = 7966461447) See_Comment [Automated [employer] ge] The system which generated this result transmitted reference range: 10*3/?L. The reference range was not used to interpret this result as normal/abnormal. GRAN MAT (NEUT) % (test code = 770-8) 65.2 % IMM GRAN % (test code = 3305933692) 4.50 % LYMPH % (test code = 736-9) 19.3 % MONO % (test code = 5905-5) 7.4 % EOS % (test code = 713-8) 3.1 % BASO % (test code = 706-2) 0.5 % GRAN MAT x10^3(ANC) (test code = 2369202210) 5.65 10*3/uL 1.99-6.95 IMM GRAN x10^3 (test code = 7801979232) 0.39 10*3/uL 0.00-0.06 H LYMPH x10^3 (test code = 731-0) 1.67 10*3/uL 1.09-3.23 MONO x10^3 (test code = 742-7) 0.64 10*3/uL 0.36-1.02 EOS x10^3 (test code = 711-2) 0.27 10*3/uL 0.06-0.53 BASO x10^3 (test code = 704-7) 0.04 10*3/uL 0.01-0.09 REACT LYMPHS (test code = 1525865811) Rare Lab Interpretation (test code = 77888-7) Abnormal [facility] 11:13:14* Test Item Value Reference Range Interpretation Comme nts MAGNESIUM (test code = 4138958622) 1.9 mg/dL 1.7-2.4 Lab Interpretation (test cod e = 30083-1) Normal [facility] 11:13:14* Test Item Value Reference Range Interpretation Comme nts PHOSPHORUS (test code = 3690270915) 4.1 mg/dL 2.5-5.0 Lab Interpretation (test cod e = 42443-6) Normal [facility] VVNE1483-29-45 19:15:08* Test Item Value Reference Range Interpretation Comme nts Case Report (test code = 1912733998) Surgical Pathology ?Case: [id number] ? Authorizing Provider: ?Moisés, MD Simba ? Collected: ? 09/29/2022 1641 ?Ordering Location: ? ? [facility] OR ? Received: ?09/30/2022 1012 ? Department ? Pathologist: ? He, Ping, MD ? Specimens: ? A) - SMALL INTESTINE, Small Bowel ? B) - APPENDIX ? Final Diagnosis (test code = 9197681938) f6dvzRKaFEGvv9mmYWJsaX FuZzEwMzNcZnRuYmpcdWMx IHtccnRmMVxlcGljMTAyMD qkOG7tdAlqqDk0vBooBARf vjQ7nCAvKIoqa7noJJB7q5 xowcpcBOGbNZstBe0vwQHu cEqkOsDhLICeAHo0iD51WU ZydK7pdUDxDBe7MCWduLAc hbYmIrXdHQBepQXlmLL2UE FaYL2leaikSXklYQqdMRPa ewJ1XIMjzKZtR8LoWLEzCB 8dvmszUKP8JOrzNOPqUKO4 LcMoWWUfd5Tpybo7MdImyP FyZFxwbGFpblxmczIwXHBh ciBBLiBTTUFMTCBJTlRFU1 GSMnLfQTKST22RQlNPRATS LBIOB1IXT954MRSfmfPlTG UkFUYZDUlHNL0DND6IACUZ QUxMIElOVEVTVElOQUwgVE dGK0XRDZyDMOiaEtVBNr5H AKOdOEpUQM6DMtaYP3SvLT VPDI3KVAFWRDmxJYFFCFVk MBIvbaXiORTnBWTgLR8OCH DVFKCRUZ8KTLPVBaNgDKLW NZTpD7MLC8ATUDdSWZYjen KqYGEcTHYDPDWWO0LLD73h HPHSU6aCRpNJZDVQUJYedM FyXGZzMjJccGFyXGZzMjAg Xi7uSOAXDU2FWEogXMHVVE LIIJIAME1BRQbphLUzQWKd ICAtIEJFTklHTiBBUFBFTk STWHJMRQKBRUBiC2dSOWDO T6RKOOQCLOTSK6yFRUPmIN BhclxwYXJccGFyfXtccnRm KFbac4WvS8VpRiUzZTbbsc NpXGRlZmxhbmcxMDMzXGZ0 bmJqXHVjMVxkZWZmMHtcZm 2bgIKwgOiaNeKaBQRjk4ae uyTSGGgdEpFiT013KZLpJT bhx4qdt5ArCLWdnJTwo9M7 ODSFgzniuHp7j1sfLoCxAn W3nGIeHEnnS4lypkXafDLe G7AstIEfdOt7cZayU80el9 F5YaxvI6alBWAiEFSdH0Dq UH9kQKXdSoa5MZV7MFI9WY QuVFItP8QyYN5kAAWnqWHa DSb7q1harDmvNMEnRIL7r2 ibZMmgsdF4BT7zha1chUr6 c7lllfBfWOEtPGQmbMLGRN KaP1McsFplPa7paAu2zBte OnmrVET5Gzy6EU6goz80lc k6gPrwRWHbcwyoAcV1EUfo SMMvlledVHc0QGtcDHPlkU T4QZCtbFIeU5VcSFAeDP4u hmb4QHJ9BZilIQWnFtH8LZ GmfZVtYLKmkDixQJufj588 WXH5SuPhRB7aZ8Wgm1T0mF 9maXRcZGVmdGFiNzIwXGZv xe0fpSUqYDxkf5FhARU8xa F7wOYfbEAdMBPoBM12Oyfq w8RcSnmhYMG8LOXkyyTmc7 Pqm7nwByWwxbUoX9frG0Tx ZHJoZWFkXHBnYnJkcmZvb3 Aei2ZrtQFqtUl2b9ylERBz PJFggZlws8yyOWU9IHVpX1 D4gPPll2rwKAmzLCUlfAV4 gpQ2DZKyoEEbS5DqxS0sZJ VfNS0bctp0u4pyUIE2MGki SSStBqV1uoN6GOEhgIMwQM ZopNbaNTsvx906EXC5BtEo ZTUkn7XcB1LgpDysE71ezL tiE46aGNQhiAapmU9nnVep qP9uUzTmPkCjPKisgLseaA FpblxmMVxmczIwXGxhbmcx TTFgNEncP0agAcSjFDXszA usHDgrr6BoXURlTVZgXnck czIwXHBhciBJIGhhdmUgcG Gny25wKUvswWEoGMVwVFeo FDKsaRysp2KnT9laPW3qO0 NsaWRlcyBhbmQgYWdyZWUg m9j1mTDmvQwus7HvpDIfPV 53zqAfCYFcPOT8GQTax6di TY58vzrcJtEsgK42gmHsai IvDBIeb4heA9anjDNri0Ns e5NvxmWnPMrtw0DaVB7htJ IvfqgzvWT7DTKhbSCfrqXf scM2jLoyJMUzrY8hxA9qzU borS7uRuBhYmRlCQfuMS4r OUOpG5atkECuDQLyWJOgO5 ztXoXlsO0waNykEbgldnX6 CIRswp07 Clinical Information (test code = 6524086630) Trauma [T14.90XA] Gross Description (test code = 2930947593) f0ttxGTpOYUlgJVXMJAqDU GbMP3efGfenVv4hHdkNNDt wbV8fANsTStcn2kpXQO9n3 xfunIYIqjwSGAnHD6mEDtx YFLoAR6oLkZhONDlOhMlSA BhcGVydzEyMjQwXHBhcGVy rEM4KMEuUK1tbjioHGhnGL itVCJwphH2PSKoiWUeX5Pw XPGfBG2wlvujEDI5APSIZk zoOw9qrHNwrRdcExZqKsDp YXJzZXQwXGZuaWwgQXJpYW e6pZ8AIjpqJNO8SGTLBmxt QozbwOcgt0LutWRyKBViED xcaWQgNTEwMDAgXFxkYiBP FeXmLeW0BWI3SKdnTtY1VA d4GKMYXZJdLxmlXVD2EfK3 IUw0TUJhNX9kHYddbLHxIK kcYqcdSSihK309IUjsAUTz S8ZoB1DqAOncXyWfORvhKA NiGOUqHEtxFCBsE5IYKHAp Nnv2BpO3WjCjMOy5FPrqK4 VAASKyYVGlORU9Okb4GdQ8 KEi3WOBJZd8qBBs4WNTuCo A2NVV6VIe8OyNpNRBeIuVq KLZcPGMbQWbsqZOxKY1ilH qxNZYqBC4QFNCvDYnhMVBe HtRvU2SLG6hSKZ1fCSjdWD IgDQpccGFyZCANClxwbGFp ukhcfwErLYt6smBnTECpNp CyXZSiA85eq5RSa0CcLU7V UWf8ssBaxnghuP3lAAQsgb DpNNwLgSJygG3nmaZJHZnm YEFsA1ApkcDfPXvvOFJnqp 1wdGcbJKrbSxIbUHYgg6h1 fWM4yTAzzHF8qBZbvOfrBI 4peMLaIYQAAB93lSYrvzSr VSBhFVmvZTSvs2HoOsniIJ 8cRMXeakUmg8VoNA0cEYQx YEKql2TcPD38PMWbz9WrrU TecUWaKnFpuKBzkLVwq1as bCAoMzAuMCBjbSBpbiBsZW 6snCcccDSmFeZlHh14UBPs CIysREVhFM4zdRYqBOI7nR WhQIY2YDLgCVOehuZePJS2 fH2wFM1hewjxvtNsh29rBX DehVHgotAcORBUpZJzp2Lh m6MfIE70CRJsjVimAdL8lA OwtEmvPJwjVWIjkrFhx13g z1UbiEdtNURkMITooHWvTD xkKGgtACgoO7UiEH1uLLGx v5zgWP2oAXFqH6SrmIasfJ Npn9KndNGqoVHaAN8tFRWm LGZzQNowOKJzs9sxwbLpWA QoCIRvNAYum65if3i4hUSb fRqtpVLtg8EvyRP0iAEzth T1luD6RG2ziFhlevRjpK4c dDpka7Lwn4QdNWH1CL7mWU VosgYeZF1eVOBmoa4qzOJm qMLoo34hr6FgZZFuvq8jBZ RvaUS2aFFwg2Gwf9NtgZGb BQ8cBoEfQVliQPI8w7z1NT Gmck6qUGCoVOBcsDHzfxKr EzKhD85zGjOzwYUxrpNtti DxXCR2gL0dOQ6fhtmmraEp ybKnNd0pUZMhWIUrf41owN ivJR2beT8gbDIqRTVtz0He dYldxyDaDQShxA4kPGMKyI Vny0ZcE1tmSM5zrIPlk6Hc bmVkIHRvIHJldmVhbCBhIG 3fCOJqOZPtAXAhh0FjyMZk UcI6AA7qTcZkw39lbVpsqG whKVMmE8TfLA9ylFRxeWCe AoEwNWkiDZ41H87wWAS1kf Iebsn6nO8xKRFfGLClcTCc gYKlTJJuw0HldMUlM7MpTL 9cNrSwz05ul88mxYGevqBg niQgtq75nEJuBWDYlCSrh3 Tfe7HaUQCxUYTkfOtsswzf kPvpSINler7eeQGqjKQznU Odw8PlADsbVS5zgOLmVOYj dGFuLWdyZWVuIHRvIHRhbi 9fCKMyNJ8fPLJlkFcahQx1 FEQkHF6ohY32tySxynWlwT mzXZ75R99tNBV6xcFwyfe9 wS1wXDGzNMP4EX6gqSjeki WsgCYpq5WzeFCozNFcCABb hbskCL9sLJHqIA7fmJ17sl 4hUW0uXKMsfqXeniF5tT8d hnzhed8xdQlhsytim3OstJ 8cwFUuOQUwLYEjfw6zx7h2 XCkxKE23aINzPMDvLZOedO GfGA8ID0XgXYHbpBGbhN1u sOajIIPxprJkpE7ghtUcnm SgELKlmrXka59fx7SnuCVs MSMjgheqFk85YYaslJnoi3 CdEUk9PdZseYLtHlKtzUUf UvDnG52zNRygoTwkkCIkgM lrwFTfd7CvkMsiHDrxowUj LiAgXHBhciANClJlcHJlc2 LliDN4nQRgINQxF8Elq73c EDUaVYJahFOsdNZ3WJVekR 4gQTEtQTQuXHBhciANClxw FFMqJWvHZIT6mP7gFUEpHY X0FKQecgHKSrZwJyWAHIQu A1Kzb24bdXJkC5wzPMTqc5 Tem9MjqP5wNUWyh1htz4Yc v3ZwHHT9lKOwOMIozz6ivQ JrlCPsn6Kik7GqNAZksfYn YWNlLCBlbnRpcmVseVxwYX IeLFbEQitoM4Tew5HesDOu oeKhPJR3tV8vQI7rwtabfk woJZ5eKhBgQReka2w7mFI6 KD3blNqyfeOdTHDcl8XpEV XvnLwhMNb4SQMgdcKLKfJo TsMLoFQzzOM5rjW9MW1mbL EzjZitLZKeoc8cMYnkptAx lvIaJR99AJYyfpHfAGDbut HAZnM0WzLWyULisFP4pvL9 IA6mpNfnvfFtMFCwb7WkOD HocMRfl5MvsYJ3qJIvVETh woZFVpM2MkGXwIZrhUCgSK Azv9XnYgPvjsYkYSFdTLUv YMYapaQlcFt0WRlnSZHkLZ dhw4BvJIhhnEoeWYQwRrNq CDeRWbqvR2MgYITcrJIyvS 1ugFljpgYkRuWyb0uhdWQ2 nFCyxRBsHDRrmVHuz0CgdW Z1iNToWLaqMBMyZ22iy1JQ r0Afr4txmXbqk7JcqCHrFC 7qbUKiTL2Co2gtRKNiwKIy EUH0HXasj4bxXAwrESP7YC JxXlGuLUZpET2OJcBiZKv4 BWVgFPXfJRj2TQp2MU0YOm KyYXDzHsc3HUMzYKRmBMc1 LTfcDO4OOLH1FEVaFdd3Yd RaKOA8VeWgDYu7UJHhYBga prTsJRmnWbwrVTioG48crB FyZFxzYjEwNVxlcGljWHNi DKH8GX7EFFNyFwFfK3XSN3 dTTW5bAlzoXQPxGPhouQGh ZCANClxwbGFpblxsdHJjaF jjnwBhNZUeVcPeZMAfG00i x3MWa9DkRN0DKMs7taFtkh phkP7oAESsmvSuv5HjDGif cGljWHNiMzAgDQpTcGVjaW 1ngcNJHXiqQZSeL9FkwyHx SMliTNYgaq5khSxyVSojYx UxTKYcb1q9oTP0oWQccLM0 tXTttAcjTD1mhUEwVWHZFG 52mHBbwwGdBSFgTP9veUxd UHJmxnVwW98ic6lijEVcx3 MzWB6soX08EMZ3PFK6NHRt rNAsjn6uCAUiWH3mnJkcOO MnBZEqkWPqgcIfCJ7ltEur SdygBX74ENHhWOOcmDKrre UxmDUfUUEayyfls6y7rHVq uPVwH8skDPTfBNYnHRVdAW 2cuXldQA8eAXLzv6KziJtx LFCrBDJgU5Jpj35kiYFdI5 nrJmMLsPJeb0Mak0AwTDpe HJBknt8xzI0sFWBsdM3hxN yobG0rjzReH2OkYDQkJMQr z3CdfLx8WEthvD0bohtoC7 xuSkSBrERsq8MsD2mrJB8o dAHio0SceVDhhYvvl9MmsP lvbmVkIHRvIHJldmVhbCB0 US4alSdnenLfgGIlt4FnFo WsGCGhXP9eOJXrgJFuBY4j xhGtU4szSlIxxk0tCSBlZE L8npHjHsQuI03zpD6mXSad oVE1OXZfxTjctPToz022EB hzwuIoQF6bwomwOWaiCM0e aK26YY9yJFaynJ4rpmanE2 rcDL3roNUckMNmSrIJqmSe ZHOad4NzpCpgloUnXVBeGC vwb8WvtMwghYWsdaVfBskx JL5fN3KxkOkaitIrjO8geX 9eqNNlEOV3hFKsLT4bYfAv WRFqURAnR8Gfv61exDXoM0 luIChpbmtlZCBibHVlKSwg voJiigJlIF37NPPqlsIxM0 Wdq0Ofj6OkyPehweHkKWEu RXOyfGUaJ4InAZR7wOVkZJ XmGCA8Zx7urTFyISZapySG FW2muHIdQT5ELQMcFHphdT ljWHNiMCANClxwYXIgDQpc w8QjVQholDxcKNKbIwHtLT mMRQL5MMSdleUptClfKREM QSAoQVNDUCkNClxlcGljTm PuaVLiRyI2QXWxrGKgVUR1 PL2vrOxuGXUqI7PnN0Kurb S5NXNcqjMKYedqBCQfUJ1U fQ== Disclaimer (test code = 8646299980) h7opcJGrTSGsx6lyTUJxdI FuZzEwMzNcZnRuYmpcdWMx LQrnijMwIWlzx0SxS7FlDy AwMFxhbnNpXGRlZmxhbmcx OAPsUMR4zaQhSRKlWPqsDX TwQWyvYg0ztLBsqFriKmCu ADVfl8bolwTKCEbwFpIaA8 99LZHpXJyqa8ymq3RhSSZd vALoq6M0UGAXvcvywVz9xI ygC52sm1A2ZokrA0wnWDVb IHXpD7UlCH4eKOFeFri1RT S3LWX6FKTxMWTtW8KsQW7e ITXzbMTuODt1f1ygoNkrKQ ZwHUC7s9cpNYryugJxDK0j gx3fkJr4u4mbmsVrAWJbGW NkkSMNRORkD2IsuHvsTj1j rIi1tYsaJnziYPS1Qxa5WU 3azy60phs9fLjgVRLuwhgd QsF3KOgvJAGiefibXYm5TL zdKCWgoZK4RGCkaHJuT9Yh JPRnBO2xyle4NSL5BRsxIB PaSdM5IJUiyJDbIYEulWyn UKuii100GUA1DwTsCB0aK8 Dkt2Y8zG4zbXGuNCKxfUGp FlZpDCRgzw7ejOLtLRzlo2 GgPMU1mzX8mJUpaZHtSPHo JV00Ylhxq1FjPvcvx9EmX2 6agXH4TVaqe6vjXT7jXhP1 siWsOAwck7mayS5vRmJ0CW muNV0eMC5hETYuiL1msvmx XHBnYnJkcmhlYWRccGdicm SaSj3rwLiuSVK0UVlwA3kt rK1vBxI5GZyeE5dtsE8kAB z0RCyinBT2GURdhF0uFL2z weiez3ilHFumAGwrYBUzcf B5mwL8MMDhyYJgD6SvxU7z WBNqVM3cpivic8oeINA5NS muUIJfCMJ6GnTtPGNjq2Xm niy4NdZwa7TsvRNuGQecJ1 3sj077GITcrbKiO7tffNCt ojqrtLXaxhmpWZumjuI9UI OtbjIzn5WoXVGeCWX2FGcj PMkrlFQhWDIdrHwzy2ykP7 RscGFyXHBsYWluXGYxXGZz MjBcbGFuZzEwMzNcaGljaF elCGlbIqRhDGYkKJlvR1ry HoMbD2EsAUBlVrYdgPJnF5 ggVGhpcyByZXBvcnQgbWF5 PTmrC5m4EMJqwqCiqDn3ii NyDtPdENUpTJT5PRkniSXq QOFjb9GmpjxdxLKnXa1dkA UwLOHvlX3mDQSaWIJuGCde PD0zkDh5JGGXsNBoxYPbSo HJGIQhWI42epViLBYLdzkn b8N2WMqzNULnw7PnfRBcX0 ygt8SzYJIen71eMP4nj7Q9 h6zbPBP7BE7pz5HoQRVumZ AbrMKlOPXkm5Ziciabn9Cq LZCosfJja3TfRLOonpSjxO EbYGRzsoQctw2yikIpNUYi NXAeL0WbggrcqAzzxgIgAZ Ozmx2xhfFxNCT8OFOXMMIy ICHdj4OntW2ihODFJAT6pG Mdqh1hdaZNmVDfGOTgkb80 ZTItPL8rF0uxHPHwLFXhhx JupCYws5OrVVColPC0uHUr QG6FLeUIx60pXFFkRJKKjn AtRJNehHpqiMN1hhK6zC4b IChGREEpLlx+IFRoZSBGRE WmNC0kpyUxd3FlalAldRdv JGImvVUlh2UceLPny4WbdR coo9HnoDRnuXEaHF8pDECo clxwYXIgVVRNQiBMYWJvcm D9f9LmKHDjYFOyLPW4dIjr iif8KOItgL8bQTJpA6tclj pfYRixRSWpd9KpbM8gsBXM rTYjx4GobRZrvZIHkQHnYV 2lqvBlVSkCYLdJOSG0pqTg FQEek5VlMPtcB4ieS37fhJ xumGs7qUY6ZDP7oW5jJxm+ IFxwYXJccGFyIEFwcHJvcH NgGGXyhLduibZgX9AiumRb cV9olDLiypKoVF6mAL7oB7 Q8gNBeZKNqroKey1kaSQzs dmUgYmVlbiByZXZpZXdlZC Cxz5JuCDblCGJ0JBpxncWq bmNsdWRpbmcgSCZFLCBTcG YrkNGhYZL9LHfnrsZcupQt EI8uuM8huRyedS1caUKggM Y2qkmzLWEuTENrxEixNRPc ZS5rwCDgPCUmwaJRrPtsiI IbfC5vZ7AdYSUjRSOluf5b CIUgaV2hKPhdh4XqvkvyJQ KmMGNdQBZrevLrts0kRCKi zGIUXU9PUMnvmNLfh9Pkfz YpG1cIIUK5OKLzJkQlEste COKykHIsyUIiCRSqdv00ET QrmF7zmGohKPVidE1liJ1p bAphyW2uXoZiNfVjTJwgJB 6kNNLxK9ailSQiMGNfDMBr Y4yvSkIkuL9rtFvpKLshHx TjIqThXKriPJW4oN== Embedded Images (test code = [id number]) [facility]+2022-10-03 00:30:45* Test Item Value Reference Range Interpretation Comme nts PH (test code = 2) 7.41 7.35-7.45 PCO2 (test code = 0175792947) 37 See_Comment [Automated messa ge] The system which generated this result transmitted reference range: 35 - 45 mmHg. The reference range was not used to interpret this result as normal/abnormal. PO2 (test code = 3668943480) 113 See_Comment H [Automated messa ge] The system which generated this result transmitted reference range: 80 - 100 mmHg. The reference range was not used to interpret this result as normal/abnormal. HCO3 (test code = 5594385955) 23 See_Comment [Automated messa ge] The system which generated this result transmitted reference range: 22 - 26 mEq/L. The reference range was not used to interpret this result as normal/abnormal. BE (test code = 5739810808) -1.2 See_Comment [Automated messa ge] The system which generated this result transmitted reference range: -3.0 - 3.0 mEq/L. The reference range was not used to interpret this result as normal/abnormal. THB (test code = 3232988260) 13.8 g/dL 13.5-18.0 %O2HB (test code = 2856922290) 96.7 % 94.0-99.0 %COHB ART (test code = 2828756282) 1.3 % 0.0-1.5 %METHB ART (test code = 8167614507) 0.6 % 0.4-1.5 VOL%O2 ART (test code = 5414408134) 18.9 % 15.0-23.0 QUES NA (test code = 3112339472) 132 mmol/L 135-145 L K+ (test code = 3251616068) 4.0 mmol/L 3.5-5.0 AC CA IONZ (test code = 0594537703) 4.60 mg/dL 4.50-5.30 GLUCOSE (test code = 8895531413) 156 mg/dL 70-110 H Lab Interpretation (test code = 30882-4) [facility]normal [facility]+K+GLU+CA2+2022-10-02 23:30:58* Test Item Value Reference Range Interpretation Comme nts PH (test code = 2) 7.43 7.35-7.45 PCO2 (test code = 4442404305) 39 See_Comment [Automated messa ge] The system which generated this result transmitted reference range: 35 - 45 mmHg. The reference range was not used to interpret this result as normal/abnormal. PO2 (test code = 6798190834) 102 See_Comment H [Automated messa ge] The system which generated this result transmitted reference range: 80 - 100 mmHg. The reference range was not used to interpret this result as normal/abnormal. HCO3 (test code = 8526221682) 25 See_Comment [Automated messa ge] The system which generated this result transmitted reference range: 22 - 26 mEq/L. The reference range was not used to interpret this result as normal/abnormal. BE (test code = 8516535344) 0.8 See_Comment [Automated messa ge] The system which generated this result transmitted reference range: -3.0 - 3.0 mEq/L. The reference range was not used to interpret this result as normal/abnormal. THB (test code = 9347022279) 12.5 g/dL 13.5-18.0 L %O2HB (test code = 6586790654) 97.2 % 94.0-99.0 %COHB ART (test code = 7435962137) 0.7 % 0.0-1.5 %METHB ART (test code = 0825350302) 0.4 % 0.4-1.5 VOL%O2 ART (test code = 1607972398) 17.2 % 15.0-23.0 QUES NA (test code = 5119356282) 132 mmol/L 135-145 L K+ (test code = 7760468739) 3.8 mmol/L 3.5-5.0 AC CA IONZ (test code = 9423828681) 4.50 mg/dL 4.50-5.30 GLUCOSE (test code = 2248571691) 137 mg/dL 70-110 H Lab Interpretation (test code = 70082-9) [facility]normal [facility] FSLSGGB3300-08-03 09:11:33* Test Item Value Reference Range Interpretation Comme nts IONIZED CA (test code = 3021473697) 4.40 mg/dL 4.50-5.30 L PH SERUM (test code = 1991611323) 7.44 7.35-7.45 QUES Lab Interpretation (test cod e = 15382-6) [facility]normal [facility]2023-07-02 08:11:24* Test Item Value Reference Range Interpretation Comme nts PHOSPHORUS (test code = 6343505612) 2.6 mg/dL 2.5-5.0 Lab Interpretation (test cod e = 20865-9) Normal [facility]-02 08:11:24* Test Item Value Reference Range Interpretation Comme nts MAGNESIUM (test code = 1443842174) 1.9 mg/dL 1.7-2.4 Lab Interpretation (test cod e = 89609-3) [facility] (NA, K, CL, CO2, GLUCOSE, BUN, CREATININE, CA)2022-10-02 08:11:24* Test Item Value Reference Range Interpretation Comme nts NA (test code = 7816194855) 131 mmol/L 135-145 L K (test code = 8928359151) 3.5 mmol/L 3.5-5.0 CL (test code = 7005226551) 100 mmol/L 98-108 CO2 TOTAL (test code = 2031766232) 21 mmol/L 23-31 L AGAP (test code = 3920574043) 10 2-16 BUN (test code = 0905396881) 10 mg/dL 7-23 GLUCOSE (test code = 2768932384) 86 mg/dL 70-110 CREATININE (test code = 3500988560) 0.58 mg/dL 0.60-1.25 L CALCIUM (test code = 5408597471) 8.0 mg/dL 8.6-10.6 L eGFR (test code = 6575723183) 173.6 mL/min/1.73m2 ROLAND (test code = ROLAND) [...] imaging tests). Lab Interpretation (test code = 36372-7) Abnormal [facility] WITHOUT [id number] 08:00:45* Test Item Value Reference Range Interpretation [...] result as normal/abnormal. MPV (test code = 48831-8) 10.5 fL 9.8-13.0 RDW-CV (test code = 788-0) 13.8 % 12.1-15.4 RDW-SD (test code = 74310-6) 42.1 fL 38.5-51.6 NRBC x10^3 (test code = 1078452012) See_Comment [Automated messa ge] The system which generated this result transmitted reference range: 10*3/?L. The reference range was not used to interpret this result as normal/abnormal. NRBC/100 WBC (test code = 7365856850) 0.0 See_Comment [Automated messa ge] The system which generated this result transmitted reference range: 0.0 - 10.0 /100 WBCs. The reference range was not used to interpret this result as normal/abnormal. IPF % (test code = 2336606164) Lab Interpretation (test code = 44805-4) [facility]normal [facility]23-[facility] 10:50:09* Test Item Value Reference Range Interpretation Comme nts PHOSPHORUS (test code = 8554566980) 2.5 mg/dL 2.5-5.0 Lab Interpretation (test cod e = 95627-6) Normal [facility]2023-[facility]-01 10:50:09* Test Item Value Reference Range Interpretation Comme nts MAGNESIUM (test code = 6304293129) 2.0 mg/dL 1.7-2.4 Lab Interpretation (test cod e = 59206-7) Normal [facility] METABOLIC PANEL (NA, K, CL, CO2, GLUCOSE, BUN, CREATININE, CA)2022-10-01 10:50:09* Test Item Value Reference Range Interpretation Comme nts NA (test code = 4738604996) 134 mmol/L 135-145 L K (test code = 0041351803) 3.6 mmol/L 3.5-5.0 CL (test code = 5615580567) 103 mmol/L 98-108 CO2 TOTAL (test code = 5222167794) 23 mmol/L 23-31 AGAP (test code = 8406508436) 8 2-16 BUN (test code = 1779768680) 10 mg/dL 7-23 GLUCOSE (test code = 1694292083) 90 mg/dL 70-110 CREATININE (test code = 1535181390) 0.76 mg/dL 0.60-1.25 CALCIUM (test code = 1074620148) 7.5 mg/dL 8.6-10.6 L eGFR (test code = 3673038053) 127.1 mL/min/1.73m2 ROLAND (test code = ROLAND) [...] imaging tests). Lab Interpretation (test code = 87322-1) [facility]normal [facility] ECPAIUX0005-05-18 10:46:47* Test Item Value Reference Range Interpretation Comme nts IONIZED CA (test code = 3995667859) 4.20 mg/dL 4.50-5.30 L PH SERUM (test code = 8651248517) 7.40 7.35-7.45 Lab Interpretation (test cod e = 24663-0) Abnormal [facility] WITHOUT AVGT9208-02-18 10:13:26* Test Item Value Reference Range Interpretation [...] result as normal/abnormal. MPV (test code = 63258-4) 11.3 fL 9.8-13.0 RDW-CV (test code = 788-0) 13.8 % 12.1-15.4 RDW-SD (test code = 85054-8) 42.8 fL 38.5-51.6 NRBC x10^3 (test code = 2751978445) See_Comment [Automated [employer]] The system which generated this result transmitted reference range: 10*3/?L. The reference range was not used to interpret this result as normal/abnormal. NRBC/100 WBC (test code = 8365007254) 0.0 See_Comment [Automated [employer]] The system which generated this result transmitted reference range: 0.0 - 10.0 /100 WBCs. The reference range was not used to interpret this result as normal/abnormal. IPF % (test code = 0916098442) Lab Interpretation (test code = 25216-7) [facility]normal [facility] (79692)(TOTAL CHOLESTEROL, TRIGLYCERIDES, HDL)2022-09-30 11:32:40* Test Item Value Reference Range Interpretation Comme nts CHOL (test code = 5955674940) 72 mg/dL 120-200 L HDL (test code = 8130051465) 21 mg/dL >=40 L HDLC RATIO (test code = 8148622714) 3.4 <=5.0 TRIG (test code = 9636039920) 136 mg/dL 30-170 LDL CHOL (test code = 44138-9) 24 mg/dL <=160 VLDL (test code = 9033961667) 27 mg/dL 5-60 Lab Interpretation (test cod e = 55140-8) [facility]normal [facility] (76411)(TOTAL CHOLESTEROL, TRIGLYCERIDES, HDL)2022-09-30 11:32:40* Test Item Value Reference Range Interpretation Comme nts CHOL (test code = 8158169382) 72 mg/dL 120-200 L HDL (test code = 5531432933) 21 mg/dL >=40 L HDLC RATIO (test code = 2644853499) 3.4 <=5.0 TRIG (test code = 3881424947) 136 mg/dL 30-170 LDL CHOL (test code = 81700-8) 24 mg/dL <=160 VLDL (test code = 4003641169) 27 mg/dL 5-60 Lab Interpretation (test cod e = 86447-0) [facility]normal [facility]2023-06-30 10:00:53* Test Item Value Reference Range Interpretation Comme nts PHOSPHORUS (test code = 2862247533) 1.9 mg/dL 2.5-5.0 L Lab Interpretation (test cod e = 50934-2) [facility]normal [facility]23-[facility]-30 10:00:53* Test Item Value Reference Range Interpretation Comme nts MAGNESIUM (test code = 4893308960) 2.0 mg/dL 1.7-2.4 Lab Interpretation (test cod e = 20346-7) Normal [facility] (NA, K, CL, CO2, GLUCOSE, BUN, CREATININE, CA)2022-09-30 10:00:53* Test Item Value Reference Range Interpretation Comme nts NA (test code = 7094315672) 134 mmol/L 135-145 L K (test code = 0375101140) 3.7 mmol/L 3.5-5.0 CL (test code = 6075013749) 101 mmol/L 98-108 CO2 TOTAL (test code = 1649634238) 26 mmol/L 23-31 AGAP (test code = 4924010999) 7 2-16 BUN (test code = 9264991986) 12 mg/dL 7-23 GLUCOSE (test code = 5238799212) 128 mg/dL 70-110 H CREATININE (test code = 8973238516) 0.76 mg/dL 0.60-1.25 CALCIUM (test code = 3597647285) 7.4 mg/dL 8.6-10.6 L eGFR (test code = 4185226270) 127.1 mL/min/1.73m2 ROLAND (test code = ROLAND) [...] imaging tests). Lab Interpretation (test code = 67844-6) [facility]:53* Test Item Value Reference Range Interpretation Comme nts PHOSPHORUS (test code = 8697081550) 1.9 mg/dL 2.5-5.0 L Lab Interpretation (test cod e = 94081-3) [facility]normal [facility] 10:00:53* Test Item Value Reference Range Interpretation Comme nts MAGNESIUM (test code = 0117099184) 2.0 mg/dL 1.7-2.4 Lab Interpretation (test cod e = 16166-2) Normal [facility] (NA, K, CL, CO2, GLUCOSE, BUN, CREATININE, CA)2022-09-30 10:00:53* Test Item Value Reference Range Interpretation Comme nts NA (test code = 1012190713) 134 mmol/L 135-145 L K (test code = 8472511288) 3.7 mmol/L 3.5-5.0 CL (test code = 8135431608) 101 mmol/L 98-108 CO2 TOTAL (test code = 4653734070) 26 mmol/L 23-31 AGAP (test code = 2594888599) 7 2-16 BUN (test code = 6892987744) 12 mg/dL 7-23 GLUCOSE (test code = 6323072026) 128 mg/dL 70-110 H CREATININE (test code = 7465803659) 0.76 mg/dL 0.60-1.25 CALCIUM (test code = 0027426013) 7.4 mg/dL 8.6-10.6 L eGFR (test code = 9699689143) 127.1 mL/min/1.73m2 ROLAND (test code = ROLAND) [...] imaging tests). Lab Interpretation (test code = 67968-5) [facility]normal [facility] GSLECDJ4101-26-75 09:21:16* Test Item Value Reference Range Interpretation Comme nts IONIZED CA (test code = 2325589087) 3.90 mg/dL 4.50-5.30 L PH SERUM (test code = 6206584548) 7.56 7.35-7.45 H QUES Lab Interpretation (test cod e = 60999-2) Abnormal [facility] CWMQWHQ2703-62-21 09:21:16* Test Item Value Reference Range Interpretation Comme nts IONIZED CA (test code = 1081232479) 3.90 mg/dL 4.50-5.30 L PH SERUM (test code = 4384745081) 7.56 7.35-7.45 H QUES Lab Interpretation (test cod e = 49845-8) Abnormal [facility] WITHOUT UYVU3574-57-33 09:12:45* Test Item Value Reference Range Interpretation [...] result as normal/abnormal. MPV (test code = 84594-9) 11.4 fL 9.8-13.0 RDW-CV (test code = 788-0) 13.6 % 12.1-15.4 RDW-SD (test code = 71148-0) 41.0 fL 38.5-51.6 NRBC x10^3 (test code = 2910829352) See_Comment [Automated messa ge] The system which generated this result transmitted reference range: 10*3/?L. The reference range was not used to interpret this result as normal/abnormal. NRBC/100 WBC (test code = 8574516260) 0.0 See_Comment [Automated messa ge] The system which generated this result transmitted reference range: 0.0 - 10.0 /100 WBCs. The reference range was not used to interpret this result as normal/abnormal. IPF % (test code = 4757969374) Lab Interpretation (test code = 24371-3) Abnormal [facility] WITHOUT KCIL7273-71-17 09:12:45* Test Item Value Reference Range Interpretation [...] result as normal/abnormal. MPV (test code = 99716-1) 11.4 fL 9.8-13.0 RDW-CV (test code = 788-0) 13.6 % 12.1-15.4 RDW-SD (test code = 38901-6) 41.0 fL 38.5-51.6 NRBC x10^3 (test code = 6603005657) See_Comment [Automated messa ge] The system which generated this result transmitted reference range: 10*3/?L. The reference range was not used to interpret this result as normal/abnormal. NRBC/100 WBC (test code = 5352223208) 0.0 See_Comment [Automated messa ge] The system which generated this result transmitted reference range: 0.0 - 10.0 /100 WBCs. The reference range was not used to interpret this result as normal/abnormal. IPF % (test code = 9199458041) Lab Interpretation (test code = 33146-4) Abnormal [facility] Panel 20 + Lactic Tfcn9380-87-72 06:28:36* Test Item Value Reference Range Interpretation Comme nts PH (test code = 2) 7.46 7.35-7.45 H PCO2 (test code = 9742765644) 32 See_Comment L [Automated messa ge] The system which generated this result transmitted reference range: 35 - 45 mmHg. The reference range was not used to interpret this result as normal/abnormal. PO2 (test code = 1705552973) 142 See_Comment H [Automated messa ge] The system which generated this result transmitted reference range: 80 - 100 mmHg. The reference range was not used to interpret this result as normal/abnormal. HCO3 (test code = 9733632321) 22 See_Comment [Automated messa ge] The system which generated this result transmitted reference range: 22 - 26 mEq/L. The reference range was not used to interpret this result as normal/abnormal. BE (test code = 4772169661) -0.8 See_Comment [Automated messa ge] The system which generated this result transmitted reference range: -3.0 - 3.0 mEq/L. The reference range was not used to interpret this result as normal/abnormal. THB (test code = 1323070249) 13.1 g/dL 13.5-18.0 L %O2HB (test code = 5378419890) 98.3 % 94.0-99.0 %COHB ART (test code = 0779892133) 0.4 % 0.0-1.5 %METHB ART (test code = 4441903304) 0.2 % 0.4-1.5 L VOL%O2 ART (test code = 7586264589) 18.3 % 15.0-23.0 NA (test code = 3153295718) 133 mmol/L 135-145 L K+ (test code = 8418864630) 3.8 mmol/L 3.5-5.0 AC CA IONZ (test code = 7841963546) 4.30 mg/dL 4.50-5.30 L GLUCOSE (test code = 9909759176) 126 mg/dL 70-110 H LACTIC ACID (test code = 5906300842) 1.03 mmol/L 0.50-2.20 Lab Interpretation (test code = 20131-0) Abnormal [facility] + Lactic Riyn4784-96-69 06:28:36* Test Item Value Reference Range Interpretation Comme nts PH (test code = 2) 7.46 7.35-7.45 H PCO2 (test code = 8557912843) 32 See_Comment L [Automated messa ge] The system which generated this result transmitted reference range: 35 - 45 mmHg. The reference range was not used to interpret this result as normal/abnormal. PO2 (test code = 2803065100) 142 See_Comment H [Automated messa ge] The system which generated this result transmitted reference range: 80 - 100 mmHg. The reference range was not used to interpret this result as normal/abnormal. HCO3 (test code = 8084927630) 22 See_Comment [Automated messa ge] The system which generated this result transmitted reference range: 22 - 26 mEq/L. The reference range was not used to interpret this result as normal/abnormal. BE (test code = 0274578548) -0.8 See_Comment [Automated messa ge] The system which generated this result transmitted reference range: -3.0 - 3.0 mEq/L. The reference range was not used to interpret this result as normal/abnormal. THB (test code = 8683621081) 13.1 g/dL 13.5-18.0 L %O2HB (test code = 1794188647) 98.3 % 94.0-99.0 %COHB ART (test code = 6916709647) 0.4 % 0.0-1.5 %METHB ART (test code = 2537521392) 0.2 % 0.4-1.5 L VOL%O2 ART (test code = 9072293280) 18.3 % 15.0-23.0 NA (test code = 9398871714) 133 mmol/L 135-145 L K+ (test code = 3646750051) 3.8 mmol/L 3.5-5.0 AC CA IONZ (test code = 9492215386) 4.30 mg/dL 4.50-5.30 L GLUCOSE (test code = 8472224025) 126 mg/dL 70-110 H LACTIC ACID (test code = 0930243931) 1.03 mmol/L 0.50-2.20 Lab Interpretation (test code = 91643-7) Abnormal [facility] + Lactic Pqpl4680-48-03 23:44:33* Test Item Value Reference Range Interpretation Comme nts PH (test code = 2) 7.36 7.35-7.45 PCO2 (test code = 9927496549) 42 See_Comment [Automated messa ge] The system which generated this result transmitted reference range: 35 - 45 mmHg. The reference range was not used to interpret this result as normal/abnormal. PO2 (test code = 2879098196) 114 See_Comment H [Automated messa ge] The system which generated this result transmitted reference range: 80 - 100 mmHg. The reference range was not used to interpret this result as normal/abnormal. HCO3 (test code = 6630473233) 23 See_Comment [Automated messa ge] The system which generated this result transmitted reference range: 22 - 26 mEq/L. The reference range was not used to interpret this result as normal/abnormal. BE (test code = 7627786593) -2.0 See_Comment [Automated messa ge] The system which generated this result transmitted reference range: -3.0 - 3.0 mEq/L. The reference range was not used to interpret this result as normal/abnormal. THB (test code = 7086464447) 13.5 g/dL 13.5-18.0 %O2HB (test code = 9800215913) 96.5 % 94.0-99.0 %COHB ART (test code = 4879332775) 1.4 % 0.0-1.5 %METHB ART (test code = 0376645111) 0.2 % 0.4-1.5 L VOL%O2 ART (test code = 3423604872) 18.4 % 15.0-23.0 NA (test code = 5289744194) 133 mmol/L 135-145 L K+ (test code = 3074767319) 3.8 mmol/L 3.5-5.0 AC CA IONZ (test code = 0711341213) 4.30 mg/dL 4.50-5.30 L GLUCOSE (test code = 6722805192) 152 mg/dL 70-110 H LACTIC ACID (test code = 0375444292) 1.65 mmol/L 0.50-2.20 Lab Interpretation (test code = 70927-9) Abnormal [facility] + Lactic Ihvs2740-72-10 23:44:33* Test Item Value Reference Range Interpretation Comme nts PH (test code = 2) 7.36 7.35-7.45 PCO2 (test code = 6318427572) 42 See_Comment [Automated messa ge] The system which generated this result transmitted reference range: 35 - 45 mmHg. The reference range was not used to interpret this result as normal/abnormal. PO2 (test code = 5896867029) 114 See_Comment H [Automated messa ge] The system which generated this result transmitted reference range: 80 - 100 mmHg. The reference range was not used to interpret this result as normal/abnormal. HCO3 (test code = 1143554772) 23 See_Comment [Automated messa ge] The system which generated this result transmitted reference range: 22 - 26 mEq/L. The reference range was not used to interpret this result as normal/abnormal. BE (test code = 7909184431) -2.0 See_Comment [Automated messa ge] The system which generated this result transmitted reference range: -3.0 - 3.0 mEq/L. The reference range was not used to interpret this result as normal/abnormal. THB (test code = 4481412618) 13.5 g/dL 13.5-18.0 %O2HB (test code = 2678829247) 96.5 % 94.0-99.0 %COHB ART (test code = 3151709028) 1.4 % 0.0-1.5 %METHB ART (test code = 5388606524) 0.2 % 0.4-1.5 L VOL%O2 ART (test code = 4022567078) 18.4 % 15.0-23.0 NA (test code = 6145625607) 133 mmol/L 135-145 L K+ (test code = 1984658181) 3.8 mmol/L 3.5-5.0 AC CA IONZ (test code = 7650318221) 4.30 mg/dL 4.50-5.30 L GLUCOSE (test code = 3982209464) 152 mg/dL 70-110 H LACTIC ACID (test code = 8309476790) 1.65 mmol/L 0.50-2.20 Lab Interpretation (test code = 84716-4) [facility]normal [facility] 06:56:27* Test Item Value Reference Range Interpretation Comme nts PHOSPHORUS (test code = 4222935159) 1.8 mg/dL 2.5-5.0 L Lab Interpretation (test cod e = 91311-8) Abnormal [facility] 06:56:27* Test Item Value Reference Range Interpretation Comme nts MAGNESIUM (test code = 4275087920) 1.7 mg/dL 1.7-2.4 Lab Interpretation (test cod e = 70781-2) Normal [facility]OL[facility] (NA, K, CL, CO2, GLUCOSE, BUN, CREATININE, CA)2022-09-29 06:56:27* Test Item Value Reference Range Interpretation Comme nts NA (test code = 1563992775) 129 mmol/L 135-145 L K (test code = 9302082423) 3.1 mmol/L 3.5-5.0 L CL (test code = 3276335826) 99 mmol/L 98-108 CO2 TOTAL (test code = 6381980484) 22 mmol/L 23-31 L AGAP (test code = 2781468913) 8 2-16 BUN (test code = 5092647649) 14 mg/dL 7-23 GLUCOSE (test code = 3629805321) 113 mg/dL 70-110 H CREATININE (test code = 7000544276) 0.67 mg/dL 0.60-1.25 CALCIUM (test code = 3396610732) 8.3 mg/dL 8.6-10.6 L eGFR (test code = 0440467656) 147.0 mL/min/1.73m2 ROLAND (test code = ROLAND) [...] imaging tests). Lab Interpretation (test code = 76685-8) [facility]normal [facility] 06:56:27* Test Item Value Reference Range Interpretation Comme nts PHOSPHORUS (test code = 9845208651) 1.8 mg/dL 2.5-5.0 L Lab Interpretation (test cod e = 69111-8) Abnormal [facility] 06:56:27* Test Item Value Reference Range Interpretation Comme nts MAGNESIUM (test code = 0046251791) 1.7 mg/dL 1.7-2.4 Lab Interpretation (test cod e = 55167-6) Normal [facility] (NA, K, CL, CO2, GLUCOSE, BUN, CREATININE, CA)2022-09-29 06:56:27* Test Item Value Reference Range Interpretation Comme nts NA (test code = 9388513945) 129 mmol/L 135-145 L K (test code = 0180300665) 3.1 mmol/L 3.5-5.0 L CL (test code = 0132429663) 99 mmol/L 98-108 CO2 TOTAL (test code = 0687488640) 22 mmol/L 23-31 L AGAP (test code = 1624475119) 8 2-16 BUN (test code = 9622295248) 14 mg/dL 7-23 GLUCOSE (test code = 3782682643) 113 mg/dL 70-110 H CREATININE (test code = 0686495890) 0.67 mg/dL 0.60-1.25 CALCIUM (test code = 3253080432) 8.3 mg/dL 8.6-10.6 L eGFR (test code = 4928467849) 147.0 mL/min/1.73m2 ROLAND (test code = ROLAND) [...] imaging tests). Lab Interpretation (test code = 32245-8) Abnormal [facility] WITHOUT JJYZ5604-23-88 06:33:25* Test Item Value Reference Range Interpretation [...] result as normal/abnormal. MPV (test code = 03427-7) 11.5 fL 9.8-13.0 RDW-CV (test code = 788-0) 13.4 % 12.1-15.4 RDW-SD (test code = 18407-9) 39.1 fL 38.5-51.6 NRBC x10^3 (test code = 0906836494) See_Comment [Automated messa ge] The system which generated this result transmitted reference range: 10*3/?L. The reference range was not used to interpret this result as normal/abnormal. NRBC/100 WBC (test code = 6460510377) 0.0 See_Comment [Automated messa ge] The system which generated this result transmitted reference range: 0.0 - 10.0 /100 WBCs. The reference range was not used to interpret this result as normal/abnormal. IPF % (test code = 3426629823) Lab Interpretation (test code = 55245-7) Abnormal [facility] WITHOUT YEHD5091-18-02 06:33:25* Test Item Value Reference Range Interpretation [...] result as normal/abnormal. MPV (test code = 64727-5) 11.5 fL 9.8-13.0 RDW-CV (test code = 788-0) 13.4 % 12.1-15.4 RDW-SD (test code = 00687-1) 39.1 fL 38.5-51.6 NRBC x10^3 (test code = 5990639977) See_Comment [Automated messa ge] The system which generated this result transmitted reference range: 10*3/?L. The reference range was not used to interpret this result as normal/abnormal. NRBC/100 WBC (test code = 9046323522) 0.0 See_Comment [Automated messa ge] The system which generated this result transmitted reference range: 0.0 - 10.0 /100 WBCs. The reference range was not used to interpret this result as normal/abnormal. IPF % (test code = 7697177760) Lab Interpretation (test code = 65006-0) [facility] 21:02:48* Test Item Value Reference Range Interpretation Comme nts KEPPRA (test code = 1230268971) 9 ug/mL 12-46 L ROLAND (test code = ROLAND) Therapeutic range: 12-46 ?g/mL ? ?Toxic: Not well established.Test developed and characteristics determined by [facility] Services. Lab Interpretation (test code = 77373-2) Abnormal [facility] (LEVETIRACETAM)2022-09-28 21:02:48* Test Item Value Reference Range Interpretation Comme nts KEPPRA (test code = 3128418360) 9 ug/mL 12-46 L ROLAND (test code = ROLAND) Therapeutic range: 12-46 ?g/mL ? ?Toxic: Not well established.Test developed and characteristics determined by [facility] Services. Lab Interpretation (test code = 79595-3) Abnormal [facility] WITHOUT SXJY4678-36-38 16:59:16* Test Item Value Reference Range Interpretation [...] result as normal/abnormal. MPV (test code = 01258-9) 11.1 fL 9.8-13.0 RDW-CV (test code = 788-0) 13.2 % 12.1-15.4 RDW-SD (test code = 07972-6) 39.7 fL 38.5-51.6 NRBC x10^3 (test code = 8853560223) See_Comment [Automated [employer] ge] The system which generated this result transmitted reference range: 10*3/?L. The reference range was not used to interpret this result as normal/abnormal. NRBC/100 WBC (test code = 4505655808) 0.0 See_Comment [Automated [employer] ge] The system which generated this result transmitted reference range: 0.0 - 10.0 /100 WBCs. The reference range was not used to interpret this result as normal/abnormal. IPF % (test code = 3018314040) Lab Interpretation (test code = 11021-9) Abnormal [facility] WITHOUT WYGC0552-11-70 16:59:16* Test Item Value Reference Range Interpretation [...] result as normal/abnormal. MPV (test code = 10520-1) 11.1 fL 9.8-13.0 RDW-CV (test code = 788-0) 13.2 % 12.1-15.4 RDW-SD (test code = 93525-4) 39.7 fL 38.5-51.6 NRBC x10^3 (test code = 5922373329) See_Comment [Automated [employer] ge] The system which generated this result transmitted reference range: 10*3/?L. The reference range was not used to interpret this result as normal/abnormal. NRBC/100 WBC (test code = 6458710488) 0.0 See_Comment [Automated [employer] ge] The system which generated this result transmitted reference range: 0.0 - 10.0 /100 WBCs. The reference range was not used to interpret this result as normal/abnormal. IPF % (test code = 9391586172) Lab Interpretation (test code = 13926-6) Abnormal [facility]landProthrombin Time / MFF3434-96-67 11:00:17* Test Item Value Reference Range Interpretation Comme nts PROTIME PATIENT (test code = 5964-2) 12.7 See_Comment H [Automated [employer]] The system which generated this result transmitted reference range: 10.1 - 12.6 Seconds. The reference range was not used to interpret this result as normal/abnormal. INR (test code = 6301-6) 1.1 Normal INR <1.1; Warfarin Therapeutic range 2.0 to 3.0 or 2.5 to 3.5, depending upon the indications. Lab Interpretation (test code = 13807-5) Abnormal [facility]PTT2023-[facility]-28 11:00:17* Test Item Value Reference Range Interpretation Comme nts APTT Patient (test code = 3173-2) 27 See_Comment [Automated messa ge] The system which generated this result transmitted reference range: 26 - 36 Seconds. The reference range was not used to interpret this result as normal/abnormal. Lab Interpretation (test code = 13717-5) Normal [facility]landProthrombin Time / KCL4076-43-08 11:00:17* Test Item Value Reference Range Interpretation Comme [facility] PROTIME PATIENT (test code = 5964-2) 12.7 [...] the indications. Lab Interpretation (test code = 36707-7) Abnormal [facility]2023-[facility]28 11:00:17* Test Item Value Reference Range Interpretation Comme [facility] APTT Patient (test code = 3173-2) 27 See_Comment [Automated messa ge] The system which generated this result transmitted reference range: 26 - 36 Seconds. The reference range was not used to interpret this result as normal/abnormal. Lab Interpretation (test code = 37799-1) Normal [facility] BranchType and Screen - The Type and Screen expires at midnight on the 3rd day after it was drawn. A current Type and Screen is required when RBCs are requested. For all other blood products, a Type and Scr een performed during the [facility]2022-09-28 10:34:00* Test Item Value Reference Range Interpretation Comme [facility] ABO & RH (test code = 20) O POSITIVE IAT (test code = 1185) Negative [facility]land[facility] and Screen - The Type and Screen [...] POSITIVE IAT (test code = 1185) Negative [facility] Procedure Notes Date/Time Note Provider Source 2022-09-29 13:58:58 3Imdchmw2yzpZivuPrdX V1SItL5CgbPflrj BzZqw1ly+nbAxWLizIoM5xPDjaWF67575-8 09-29T13:58:58Associated Order(s): Arterial Line Arterial Line Date/Time: [...] infiltration with Lidocaine, STF, smooth and atraumatic. 74505-9Ycghnmyojkmqga procedure kqwhQG9377-24-96W99:59:58Anesthesio logy procedure noteTXT1.2.840.149845.1.13.104.2.7. 2.431796|[id number] for patient efrv01753-8Xbpdambz operation wugaDRPP-MZBTTOOMQPNIVQGS-TSNRIFRJU [address] Xs[id number] 5ENLGOCNMTODBCKXNPNKTVK2778-59-83H2 3:59:581.2.840.069874.1.72.3.15|1.2 .840.838990.1.13.104.2.7.2.727879_1 [id number] AN-ANESTHESIOLOGY [facility] 2022-09-29 13:44:22 /xgRnrM0UinL5lh/7Yu1 9zTSqxOcy8f9oeP 14At4SY6PBdpTVe3jYF0EYjnjTCwM0073-1 3:44:22Associated Order(s): Intubation IntubationDate/Time: 09/29/2022 1:33 PMUrgency: electiveAirway not difficultGeneral Information and StaffPatient location during procedure: ORAnesthesiologist: Wili Peralta MDResident/SOLAR PV INSTALLER: Sabas Zhang DOPerformed: resident/SOLAR PV INSTALLER Indications and Patient ConditionIndications for airway management: [...] lips unchanged from pre-op.RSI with quick desaturation 27498-8Vozxhtvykdeggp procedure ggssHT1504-26-36K82:58:53Anesthesio logy procedure noteTXT1.2.840.492406.1.13.104.2.7. 2.397093|[id number] for patient iojj25748-8Triecupn operation note[id number] 1QGPSYLLMWIQFYWBTZCIOFI7434-37-68R6 3:58:531.2.840.055380.1.72.3.15|1.2 .840.212610.1.13.104.2.7.2.727879_1 [id number] [facility] Notes Date/Time Note Provider Source 2022-11-21 14:21:51 id0RGruUAqZ2RiuzLqCeodHYr//nwbb1uWb YM8ZGhtOEuN3sAejM4gihWELEj/2v4547-5 11-21T14:21:51 Addendum created 11/21/221420 by Wili Peralta MD Attestation recorded in Intraprocedure, Flowsheet accepted, Intraprocedure Attestations filed 39800-0Vyiawmnr OvarzxxmNT1294-33-47K39:21:51Addend um DocumentTXT1.2.840.117874.1.13.104. 2.7.2.987581|[id number] for patient lvut46961-5WbsqKRVLRKBMDC[address] [id number] 3TDSWRZOJPYZUAECYYDOQMX6364-80-72C5 4:21:511.2.840.067920.1.72.3.15|1.2 .840.538815.1.13.104.2.7.2.727879_1 [id number] [facility] 2022-10-07 16:44:52 skFYayk91x1VfPCnS/duLC36lyc2M+4ps3O Wp57pmDZfj8C3C++aZwHUT4PewQub4921-7 6:44:52 Patient: Ana Laurent Procedure Summary Date: 09/29/22 Room / Location: [place] [address] / [facility] LOCATION Anesthesia Start: 1306 Anesthesia Stop: 182 [...] to ventilatory status in the operating room 56250-5Rjqyptgnemrfox Postoperative evaluation and management yldqTE3015-46-39T81:48:32Anesthesio logy Postoperative evaluation and management noteTXT1.2.840.059063.1.13.104.2.7. 2.620261|[id number] for patient ztom87694-6Zklynjvz operation noteLNAN-ANESTHESIOLOGY ANESTHESIOLOGISTAN-ANESTHESIOLOGY ANESTHESIOLOGIST[address] Bm[id number] 8AXPIDONGWQGZVJXIGACULL2739-86-34K5 6:48:321.2.840.095944.1.72.3.15|1.2 .840.330883.1.13.104.2.7.2.727879_1 [id number] AN-ANESTHESIOLOGY ANESTHESIOLOGIST [facility] 2022-09-29 11:43:38 fjT0JTGLzp0Ve2V4Yn2s683ZrC0KFZLYgZC d9lY0kPDJ8mkUNZyu5wtl1ZSg9qEq0900-9 1:43:38 Name/ MRN / Age / Gender:Ana Laurent, 42 year old male BMI:Estimated body mass index [...] 95% Date of Surgery: 09/29/2022Surgeon: Person, Simba, BELKYSrocedure: DIAGNOSTIC LAPAROSCOPY (Abdomen)EXPLORATORY LAPAROTOMY (Abdomen)OR Location: [facility] SUSHMAAnesthesia Preop Screen (no physical exam) Anesthesia Preop: Chart Review and Ltpd-tf-EpdtJADT Communication: Ana Laurent is a 22 year [...] Pulmonary ROSComments: Spirometry FindingsNo results found for: HEPRHV0Ki results found for: DYYBDX0Ww results found for: QRAJUBXTXMF8GZI max (<=3.3L/sec) : (not recorded)09/29/2022FINDINGS:?The lungs are [...] found for: HGBA1C No results found for: RSNRVTX4D Other Comments: Social History Tobacco Use Smoking status: Never Smokeless tobacco: Never reports that he has never smoked. He has never used smokeless tobacco. 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 Hold on DOS. Phentermine: Alert [facility] anesthesiologistSGLT2 Inhibitors: "gliflozins" to be held [...] routine analgesia & antiemeticsRecovery Plan: PACUAdditional comments: 23518-5Asgbrnanmhxfti Preoperative evaluation and management [id number]:07:10Anesthesio logy Preoperative evaluation and management [id number] for patient [id number] operation noteLNAN-ANESTHESIOLOGY ANESTHESIOLOGISTAN-ANESTHESIOLOGY ANESTHESIOLOGIST10 [place] [id number] AN-ANESTHESIOLOGY ANESTHESIOLOGIST [facility]
[2023-08-29 20:39] LABS: Specific Gravity 1.021 (1.005-1.030); Urine Bilirubin NEGATIVE (Negative); Urine Blood Negative (Negative); Urine Clarity Clear (Clear); Urine Color Light-Yellow (Yellow); Urine Glucose NEGATIVE (Negative); Urine Ketones NEGATIVE (Negative); Urine Microscopic Reflex YN NO UMIC; Urine Nitrite NEGATIVE (Negative); Urine Protein NEGATIVE (Negative); Urine Urobilinogen Normal (Normal)
[2023-08-29] MEDS ORDERED: MECLIZINE HCL 12.5 MG TAB ONE (20:45)
[2023-08-29] MEDS ORDERED: ACETAMINOPHEN 500 MG TAB ONE (20:46)
[2023-08-29] MEDS ORDERED: NA CHLORIDE 0.9% 1,000 ML ONE (20:46)
[2023-08-29] MEDS ORDERED: IBUPROFEN 400 MG TAB ONE (20:46)
[2023-08-29 20:48] LABS: Absolute Lymphocytes (CBC) 0.6 K/uL (0.7-4.9); Absolute Monocytes 0.8 K/uL (0.1-1.3); Absolute Neutrophil 5.6 K/uL (1.8-8.0); Basophils % 0.2 % (0-1.3); Eosinophils % 0.3 % (0-4.4); Hematocrit 42.4 % (39.6-49.0); Hemoglobin 14.4 g/dL (13.6-17.9); Lymphocytes % 8.7 % (15.3-44.8); MCH 28.3 pg (27.0-35.0); MCHC 33.9 g/dL (32.0-36.0); MCV 83.5 fL (80-100); MPV 9.6 fL (7.6-11.3); Monocytes % 11.9 % (3.3-12.3); Neutrophils % 78.9 % (41.7-73.7); Platelets 174 thou/uL (152-406); RBC Red Blood Cell Count 5.08 M/uL (4.33-5.43); Red Cell Distribution Width 14.6 % (12.1-15.2)
[2023-08-29] MEDS ORDERED: levETIRAcetam 500 MG TAB ONE (20:51)
[2023-08-29 20:57] LABS: SARS-CoV-2 Antigen CONTROL BLUE LINE VIS/BG OK; SARS-CoV-2 Antigen Rapid Res Negative (Negative)
[2023-08-29 21:02] LABS: Monoscreen NEG (NEG)
[2023-08-29 21:05] LABS: ALT/SGPT 25 U/L (16-61); Albumin 3.8 g/dL (3.4-5.0); Alkaline Phosphatase 74 U/L (45-117); Anion Gap 9.5 mEq/L (5.0-15.0); BUN Blood Urea Nitrogen 14 mg/dL (7-18); Bicarbonate 25 mEq/L (21-32); Bilirubin Total 0.4 mg/dL (0.2-1.0); Globulin 3.7 g/dL (2.3-3.5); Glomerular Filtration Rate 101 ml/min (=/>90); Glucose Level 98 mg/dL (74-106); Lipase 24 U/L (13-75); Potassium 3.5 mEq/L (3.5-5.1); Protein, Total 7.5 g/dL (6.4-8.2); Sodium Level 134 mEq/L (136-145)
[2023-08-29 21:06] LABS: AST/SGOT < 10 U/L (15-37)
--- NOTE | 2023-08-30 01:08 | EDPHYS ---
Physician Documentation [facility] Name: Mike Virk Age: 23 yrs Sex: Male : 2000 Arrival Date: 08/29/2023 Time: 19:14 Bed 15 Private MD: ED Physician Inderjit Arroyo HPI: 08/28 20:15 This 23 yrs old Male presents to ER via Ambulatory with complaints of cp Dizziness, Fever, Headache. 20:15 The patient presents with dizziness, lightheadedness. Onset: The symptoms/episode cp began/occurred today. Context: occurred at work. Associated signs and symptoms: Pertinent positives: headache, fever, Pertinent negatives: abdominal pain, chest pain, confusion, diaphoresis, focal weakness, vomiting. Severity of symptoms: in the emergency department the symptoms are unchanged. Patient's baseline: Motor: no deficits, Ambulation: walks without assistance, Speech: normal. 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 - Infectious Disease History:: Denies. - Social history:: Smoking status: Patient denies any tobacco usage or history of. ROS: 20:20 Constitutional: Positive for fever, cp 20:20 Eyes: Negative for injury, pain, redness, and discharge, cp 20:20 ENT: Negative for drainage from ear(s), ear pain, sore throat, difficulty swallowing, difficulty handling secretions, 20:20 Neck: Negative for stiffness, 20:20 Cardiovascular: Negative for chest pain, 20:20 Respiratory: Negative for cough, shortness of breath, wheezing, 20:20 Abdomen/GI: Negative for abdominal pain, vomiting, diarrhea, constipation, 20:20 Back: Negative for pain at rest, pain with movement, 20:20 Skin: Negative for rash, 20:20 Neuro: Positive for dizziness, headache, Negative for altered mental status, syncope, weakness, 20:20 All other systems are negative, Exam: 20:25 Constitutional: The patient appears in no acute distress, alert, awake, cp non-diaphoretic, non-toxic, well developed, well nourished, febrile, 20:25 Head/Face: Normocephalic, atraumatic. cp 20:25 Eyes: Periorbital structures: appear normal, Pupils: equal, round, and reactive to light and accomodation, Extraocular movements: intact throughout, Conjunctiva: normal, no exudate, no injection, Sclera: no appreciated abnormality, Lids and lashes: appear normal, bilaterally, 20:25 ENT: External ear(s): are unremarkable, Ear canal(s): are normal, clear, TM's: dullness, bilaterally, Nose: is normal, Mouth: Lips: moist, Oral mucosa: pink and intact, moist, Posterior pharynx: Airway: no evidence of obstruction, patent, Tonsils: no enlargement, no exudate, erythema, that is mild, exudate, is not appreciated, 20:25 Neck: ROM/movement: pain, that is mild, limited range of motion, is not appreciated, Meningeal signs: are not present, nuchal rigidity, is not appreciated, 20:25 Chest/axilla: Inspection: normal, Palpation: is normal, no crepitus, no tenderness, 20:25 Cardiovascular: Rate: tachycardic, Rhythm: regular, Edema: is not appreciated, JVD: is not appreciated, 20:25 Respiratory: the patient does not display signs of respiratory distress, Respirations: normal, no use of accessory muscles, no retractions, labored breathing, is not present, Breath sounds: are clear throughout, no decreased breath sounds, no stridor, no wheezing, 20:25 Abdomen/GI: Inspection: abdomen appears normal, Palpation: abdomen is soft and non-tender, in all quadrants, 20:25 Back: pain, is absent, ROM is normal, 20:25 Skin: cellulitis, is not appreciated, no rash present. 20:25 Neuro: Orientation: no acute changes, per family, Mentation: no acute changes, per family, Motor: moves all fours, no focal deficits, Vital Signs: 19:32 BP 115 / 69; Pulse 118; Resp 17; Temp 100.9; Pulse Ox 98% ; Pain 5/10; bm8 20:30 BP 120 / 70; Pulse 106; Resp 18; Pulse Ox 98% on R/A; me1 21:25 Temp 98.9; aw1 21:30 BP 105 / 59; Pulse 96; Resp 17; Pulse Ox 97% on R/A; me1 22:30 BP 105 / 63; Pulse 94; Resp 16; Pulse Ox 98% on R/A; me1 22:39 Temp 99.7(O); me1 23:30 BP 112 / 71; Pulse 89; Resp 15; Pulse Ox 98% on R/A; me1 08/29 00:00 BP 117 / 83; Pulse 88; Resp 18; Temp 97.9; Pulse Ox 98% ; Pain 0/10; bm8 08/28 19:32 Pain Scale: Adult bm8 08/29 00:00 Pain Scale: Adult bm8 [place] Coma Score: 00:00 Eye Response: spontaneous(4). Motor Response: obeys commands(6). Verbal Response: bm8 oriented(5). Total: 15. MDM: 08/28 19:43 Patient medically screened. cp 21:00 Differential diagnosis: hypovolemia, idiopathic dizziness, viral illness, meningitis, cp uti, COVID-19, influenza. 08/29 00:57 Data reviewed: vital signs. ec2 00:59 ED course: Patient signed out to me with pending CT scan of the head.. ED course: ec2 Anticipate likely discharge home pending negative CT scan of the head.. 01:00 ED course: Patient's lab work shows a reassuring CBC, metabolic profile with ec2 appropriate electrolytes and renal function. COVID and flu testing negative, urine is noninfectious appearing, strep negative. . 01:07 ED course: CT scan of the head independently reviewed and interpreted by me, shows no ec2 acute intracranial process. Will discharge home. Return precautions given. 01:07 ED course: MDM: Differential diagnosis as documented above in ED course All lab tests ec2 ordered and reviewed as documented above. Independent interpretation of imaging: CT scan of head as above. History gathered from independent historian: Yes . 08/28 20:08 Order name: SARS RAPID; Complete Time: 22:31 cp 08/28 20:08 Order name: Influenza Screen (a \T\ B); Complete Time: 22:31 cp 08/28 20:08 Order name: Strep cp 08/28 20:25 Order name: CBC with Diff; Complete Time: 22:31 cp 08/28 22:31 Interpretation: Normal except: LI% 78.9; LYM% 8.7; LYMA 0.6. cp 08/28 20:25 Order name: CMP; Complete Time: 22:31 cp 08/28 22:31 Interpretation: Normal except: NA 134; AST < 10; GLOB 3.7; A/G 1.0. cp 08/28 20:25 Order name: Lipase; Complete Time: 22:31 cp 08/28 20:25 Order name: Urinalysis w/ reflexes; Complete Time: 22:31 cp 08/28 20:25 Order name: [place] Screen Profile; Complete Time: 22:31 cp 08/28 20:58 Order name: Throat Culture EDMS 08/28 22:32 Order name: CT Head Brain wo Cont cp 08/28 20:25 Order name: IV Saline Lock; Complete Time: 20:52 cp 08/28 20:25 Order name: Labs collected and sent; Complete Time: 20:52 cp Administered Medications: 08/28 20:24 Not Given (Physician Discretion): [id number] mg PO once cp 20:57 Drug: Ibuprofen PO 800 mg PO once Route: PO; jw7 22:38 Follow up: Response: No adverse reaction; Temperature is decreased me1 20:57 Drug: NS 0.9% IV 1000 ml IV at 1 bolus Per protocol; 1000 mL bolus Route: IV; Rate: 1 jw7 bolus; Site: right antecubital; 23:46 Follow up: Response: No adverse reaction; IV Status: Completed infusion; IV Intake: me1 1000ml 20:57 Drug: Meclizine PO 25 mg PO once Route: PO; jw7 23:47 Follow up: Response: No adverse reaction me1 20:57 Drug: Keppra PO 1000 mg PO once Route: PO; jw7 23:47 Follow up: Response: No adverse reaction me1 Disposition: 08/29 01:00 I agree with the assessment and plan of care. I reviewed the patient's care provided by 2 Advanced Practice Provider \T\ agree w/ the diagnosis \T\ care plan. I personally saw the pt \T\ performed a substantive portion of the visit, incldng all aspects of the (History/Exam/Medical Decision Making). Disposition Summary: 08/30/23 01:07 Discharge Ordered Notes: Location: Home ec2 Condition: Stable ec2 Diagnosis - Headache ec2 Followup: ec2 - With: Private Physician - When: - Reason: Re-evaluation by your physician Discharge Instructions: - Discharge Summary Sheet ec2 - General Headache Without Cause ec2 Forms: - Medication Reconciliation Form ec2 - Antibiotic Education ec2 - Prescription Opioid Use ec2 - Patient Portal Instructions ec2 - Leadership Thank You Letter ec2 Signatures: Dispatcher [employer] EDMS Bro Hackett PA PA Shameka Rodriguez, RN RN jw7 Inderjit Arroyo MD MD ec2 Michael Gaxiola RN RN bm8 Clara Johansen RN me1 Corrections: (The following items were deleted from the chart) 08/28 19:35 19:34 PMHx: Seizures; bm8 bm8
--- NOTE | 2023-08-30 01:08 | ER ---
Nurse's Notes [facility] Name: Mike Virk Age: 23 yrs Sex: Male : 2000 Arrival Date: 08/29/2023 Time: 19:14 Bed 15 Private MD: Diagnosis: Headache Presentation: 08/28 19:32 Chief complaint: Patient states: I have a headache and feel hot. Parent and/or Guardian bm8 states: He was at work and one of his co workers noticed that he was a little unsteady on his feet. Coronavirus screen: Vaccine status: Patient reports receiving the 2nd dose of the covid vaccine. Ebola Screen: Patient negative for fever greater than or equal to 101.5 degrees Fahrenheit, and additional compatible Ebola Virus Disease symptoms Patient denies exposure to infectious person. Patient denies travel to an Ebola-affected area in the 21 days before illness onset. No symptoms or risks identified at this time. Initial Sepsis Screen: Does the patient meet any 2 criteria? Yes Does the patient have a suspected source of infection? No. Patient's initial sepsis screen is negative. Risk Assessment: Do you want to hurt yourself or someone else? Patient reports no desire to harm self or others. Onset of symptoms was August 29, 2023 at 15:30. 19:32 Method Of Arrival: Ambulatory bm8 19:32 Acuity: ALMITA 3 bm8 Triage Assessment: 19:34 Headache History: Denies prior headaches. General: Appears in no apparent distress. bm8 comfortable, Behavior is calm, cooperative, appropriate for age. Pain: Complains of pain in head Pain does not radiate. Pain currently is 5 out of 10 on a pain scale. Quality of pain is described as aching, Pain began 1529 Also complains of fever. EENT: No deficits noted. No signs and/or symptoms were reported regarding the EENT system. Neuro: No deficits noted. Level of Consciousness is awake, alert, obeys commands, Oriented to person, place, time, situation, Appropriate for age. Cardiovascular: Capillary refill < 3 seconds Patient's skin is warm and dry. Respiratory: Airway is patent Trachea midline Respiratory effort is even, unlabored, Respiratory pattern is regular, symmetrical. GI: No deficits noted. No signs and/or symptoms were reported involving the gastrointestinal system. : No deficits noted. No signs and/or symptoms were reported regarding the genitourinary system. Derm: No deficits noted. No signs and/or symptoms reported regarding the dermatologic system. Musculoskeletal: No deficits noted. No signs and/or symptoms reported regarding the musculoskeletal system. 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 - Infectious Disease History:: Denies. - Social history:: Smoking status: Patient denies any tobacco usage or history of. Screenin:07 [facility] ED Fall Risk Assessment (Adult) History of falling in the last 3 months, me1 including since admission No falls in past 3 months (0 pts) Confusion or Disorientation No (0 pts) Intoxicated or Sedated No (0 pts) Impaired Gait No (0 pts) Mobility Assist Device Used No (0 pt) Altered Elimination No (0 pt) Score/Fall Risk Level 0 - 2 = Low Risk Maintained a safe environment, Provided non-skid footwear, Hourly rounding (assess needs \T\ fall precautionary measures) done. Abuse screen: Denies threats or abuse. Nutritional screening: No deficits noted. Tuberculosis screening: No symptoms or risk factors identified. Assessment: 20:07 General: Appears uncomfortable, ill, well groomed, well developed, well nourished, me1 Behavior is calm, cooperative, appropriate for age, Reports headache, fever and unsteady gait that started today. Pain: Complains of pain in face Pain does not radiate. Pain currently is 5 out of 10 on a pain scale. Quality of pain is described as aching, Pain began gradually, Is continuous. Neuro: Level of Consciousness is awake, alert, obeys commands, Oriented to person, place, time, situation, Appropriate for age. Neuro: Reports headache. Cardiovascular: Patient's skin is warm and dry. Respiratory: Airway is patent Respiratory effort is even, unlabored, Respiratory pattern is regular, symmetrical. GI: No signs and/or symptoms were reported involving the gastrointestinal system. : No signs and/or symptoms were reported regarding the genitourinary system. EENT: No signs and/or symptoms were reported regarding the EENT system. Derm: Skin is intact, is healthy with good turgor, Skin is pink, warm \T\ dry. Musculoskeletal: No signs and/or symptoms reported regarding the musculoskeletal system. 08/29 00:00 Reassessment: Patient appears in no apparent distress at this time. Patient and/or bm8 family updated on plan of care and expected duration. Pain level reassessed. Patient is alert, oriented x 3, equal unlabored respirations, skin warm/dry/pink. Patient denies pain at this time. Patient states feeling better. Patient states symptoms have improved. 01:24 Reassessment: Patient appears in no apparent distress at this time. No changes from vc1 previously documented assessment. Patient and/or family updated on plan of care and expected duration. Pain level reassessed. Patient is alert, oriented x 3, equal unlabored respirations, skin warm/dry/pink. Vital Signs: 08/28 19:32 BP 115 / 69; Pulse 118; Resp 17; Temp 100.9; Pulse Ox 98% ; Pain 5/10; bm8 20:30 BP 120 / 70; Pulse 106; Resp 18; Pulse Ox 98% on R/A; me1 21:25 Temp 98.9; aw1 21:30 BP 105 / 59; Pulse 96; Resp 17; Pulse Ox 97% on R/A; me1 22:30 BP 105 / 63; Pulse 94; Resp 16; Pulse Ox 98% on R/A; me1 22:39 Temp 99.7(O); me1 23:30 BP 112 / 71; Pulse 89; Resp 15; Pulse Ox 98% on R/A; me1 08/29 00:00 BP 117 / 83; Pulse 88; Resp 18; Temp 97.9; Pulse Ox 98% ; Pain 0/10; bm8 08/28 19:32 Pain Scale: Adult bm8 08/29 00:00 Pain Scale: Adult bm8 [place] Coma Score: 00:00 Eye Response: spontaneous(4). Motor Response: obeys commands(6). Verbal Response: bm8 oriented(5). Total: 15. ED Course: 08/28 19:18 Patient arrived in ED. im 19:33 Bro Hackett PA is PHCP. cp 19:33 Palomo Arthur MD is Attending Physician. cp 19:34 Triage completed. bm8 19:34 Arm band placed on right wrist. Patient placed in an exam room, on a stretcher, on bm8 pulse oximetry. 19:42 Clara Johansen, RN is Primary Nurse. me1 20:07 Patient has correct armband on for positive identification. Bed in low position. Call me1 light in reach. Side rails up X 1. Provided Education on: POC. Verbalized understanding. . Client placed on continuous cardiac and pulse oximetry monitoring. NIBP monitoring applied. Pulse ox on. NIBP on. 20:07 No provider procedures requiring assistance completed. me1 22:48 CT Head Brain wo Cont In Process Unspecified. EDMS 08/29 00:00 Door closed. Noise minimized. Visitors limited. Lights dimmed. Verbal reassurance bm8 given. Head of bed elevated. 00:56 Attending Physician role handed off by Palomo Arthur MD ec2 00:56 Inderjit Arroyo MD is Attending Physician. ec2 01:24 IV discontinued, intact, bleeding controlled, No redness/swelling at site. Pressure vc1 dressing applied. Administered Medications: 08/28 20:24 Not Given (Physician Discretion): [id number] mg PO once cp 20:57 Drug: Ibuprofen PO 800 mg PO once Route: PO; jw7 22:38 Follow up: Response: No adverse reaction; Temperature is decreased me1 20:57 Drug: NS 0.9% IV 1000 ml IV at 1 bolus Per protocol; 1000 mL bolus Route: IV; Rate: 1 jw7 bolus; Site: right antecubital; 23:46 Follow up: Response: No adverse reaction; IV Status: Completed infusion; IV Intake: me1 1000ml 20:57 Drug: Meclizine PO 25 mg PO once Route: PO; jw7 23:47 Follow up: Response: No adverse reaction me1 20:57 Drug: Keppra PO 1000 mg PO once Route: PO; jw7 23:47 Follow up: Response: No adverse reaction me1 Medication: 20:07 VIS not applicable for this client. me1 Intake: 23:46 IV: 1000ml; Total: 1000ml. me1 Outcome: 08/29 01:07 Discharge ordered by . ec2 01:24 Discharged to home ambulatory, with family, vc1 01:24 Condition: good 01:24 Discharge instructions given to patient, family, Instructed on discharge instructions, follow up and referral plans. Demonstrated understanding of instructions, follow-up care, 01:25 Patient left the ED. vc1 Signatures: Dispatcher [employer] EDBro Kelley PA PA cp Calcote, Vanessa RN RN vc1 Shameka Valenzuela, YANN RN jw7 Shayla Khan Alyssa aw1 Clara Johansen RN RN nm1 Inderjit Arroyo MD MD 2 Michael Gaxiola RN RN bm8 Corrections: (The following items were deleted from the chart) 08/28 19:35 19:34 PMHx: Seizures; bm8 bm8 08/29 00:28 00:27 Reassessment: Patient appears in no apparent distress at this time. Patient bm8 and/or family updated on plan of care and expected duration. Pain level reassessed. Patient is alert, oriented x 3, equal unlabored respirations, skin warm/dry/pink. Patient denies pain at this time. Patient states feeling better. Patient states symptoms have improved. 8 00:27 GCS: 15, bm8 bm8
[2023-08-30 01:34] VITALS: O2SAT 98
[2023-08-30 01:53] VITALS: BP 117/83; TEMP 97.9
--- NOTE | 2023-08-30 12:03 | RAD REPORT ---
EXAM DESCRIPTION: Head Brain Wo Cont CLINICAL HISTORY: HEADACHE.23-year-old male. COMPARISON: CT of the brain 12/29/[address]: [address] images of the brain were performed using dose reduction techniques including aut omated exposure control and/or adjustment of the mA and/or kV according to patient size, and/or itera tive reconstruction techniques. Coronal and sagittal reformatted images were also performed. No IV contrast administered. FINDINGS: Brain parenchyma demonstrates no mass effect, shift, ventriculomegaly, or hemorrhage. Normal [place]/white matter differentiation. Bilateral mastoidal air cells and visualized paranasal sinu ses are clear. Osseous structures intact. Intraorbital contents demonstrate no acute abnormality. IMPRESSION: NO ACUTE INTRACRANIAL PROCESS. Electronically signed by: Gen Irene MD 08/30/2023 12:59 AM CDT RP Due to temporary technical issues with the PACS/Fluency reporting system, reports are being signed by the in house radiologist without review as a courtesy to ensure prompt reporting. The interpreting r adiologist is fully responsible for the content of the report.
== END 2023-08-30 01:25 | disposition home or self-care (01) ==
LOC: ER 19:14
DX: R51.9 Headache, unspecified (principal); R50.9 Fever, unspecified; Z11.52 Encounter for screening for COVID-19
CPT/HCPCS: 96361; 87070; 85025; 36415; 86308; 87081; 81003; 83690; 80053; 87804 ×2; 70450; 96360; 99284; 87811; J8597; J7030